=== PATIENT | male | born 1950 | race Caucasian/White ===

== ENCOUNTER 2017-01-24 07:59 | Day surgery (SDC) | payer OTHER ==
[2017-01-24] MEDS ORDERED: D5 LR 1000 ML 1,000 ML IV ONE (08:17)
[2017-01-24] MEDS ORDERED: DIPRIVAN VIAL 20 ML ONE (10:04)
[2017-01-24] MEDS ORDERED: DIPRIVAN VIAL 10 ML ONE (10:22)
[2017-01-24 10:56] VITALS: BP 132/64
== END 2017-01-24 10:58 | disposition home or self-care (01) ==
LOC: SURG1 07:59
PROVIDERS: ATTEND Internal Medicine Gastroenterology
PROC: 0DBK8ZX Excision of Ascending Colon, Via Natural or Artificial Opening Endoscopic, Diagnostic (ICD-10-PCS; principal; 2017-01-24 10:15)
PROC: 0DBM8ZX Excision of Descending Colon, Via Natural or Artificial Opening Endoscopic, Diagnostic (ICD-10-PCS; principal; 2017-01-24 10:15)
PROC: 0DJD8ZZ Inspection of Lower Intestinal Tract, Via Natural or Artificial Opening Endoscopic (ICD-10-PCS; principal; 2017-01-24 10:15)
PROC: 0DBP8ZX Excision of Rectum, Via Natural or Artificial Opening Endoscopic, Diagnostic (ICD-10-PCS; principal; 2017-01-24 10:15)
PROC: 0DBN8ZX Excision of Sigmoid Colon, Via Natural or Artificial Opening Endoscopic, Diagnostic (ICD-10-PCS; principal; 2017-01-24 10:15)
PROC: 0DBL8ZX Excision of Transverse Colon, Via Natural or Artificial Opening Endoscopic, Diagnostic (ICD-10-PCS; principal; 2017-01-24 10:15)
PROC: 0DBE8ZX Excision of Large Intestine, Via Natural or Artificial Opening Endoscopic, Diagnostic (ICD-10-PCS; principal; 2017-01-24 10:15)
DX: Z12.11 Encounter for screening for malignant neoplasm of colon (principal); K63.5 Polyp of colon; K57.30 Diverticulosis of large intestine without perforation or abscess without bleeding; K64.8 Other hemorrhoids
CPT/HCPCS: A4217; J3490; J7120

== ENCOUNTER 2017-04-04 08:52 | Day surgery (SDC) | payer OTHER ==
[2017-04-04] MEDS ORDERED: D5 LR 1000 ML 1,000 ML IV ONE (09:16)
[2017-04-04] MEDS ORDERED: DIPRIVAN VIAL 20 ML ONE (10:35)
[2017-04-04 11:10] VITALS: BP 118/70
== END 2017-04-04 11:12 | disposition home or self-care (01) ==
LOC: SURG1 08:52
PROVIDERS: ATTEND Internal Medicine Gastroenterology
PROC: 0DB88ZX Excision of Small Intestine, Via Natural or Artificial Opening Endoscopic, Diagnostic (ICD-10-PCS; principal; 2017-04-04 10:45)
PROC: 0DB68ZX Excision of Stomach, Via Natural or Artificial Opening Endoscopic, Diagnostic (ICD-10-PCS; principal; 2017-04-04 10:45)
PROC: 0DJ08ZZ Inspection of Upper Intestinal Tract, Via Natural or Artificial Opening Endoscopic (ICD-10-PCS; principal; 2017-04-04 10:45)
DX: R10.13 Epigastric pain (principal); K21.9 Gastro-esophageal reflux disease without esophagitis; K25.9 Gastric ulcer, unspecified as acute or chronic, without hemorrhage or perforation; K20.8 Other esophagitis
CPT/HCPCS: A4217; J3490; J7120

== ENCOUNTER 2017-08-15 07:20 | Day surgery (SDC) | payer OTHER ==
[2017-08-15] MEDS: D5 LR 1000 ML 1,000 ML IV ONE ×2 (07:39→07:52)
[2017-08-15] MEDS ORDERED: NS 1000 ML 1,000 ML ONE (07:46)
[2017-08-15] MEDS ORDERED: DIPRIVAN VIAL 20 ML ONE (09:16)
[2017-08-15 10:04] VITALS: BP 115/70
== END 2017-08-15 10:00 | disposition home or self-care (01) ==
LOC: SURG1 07:20
PROVIDERS: ATTEND Internal Medicine Gastroenterology
PROC: 0DJ08ZZ Inspection of Upper Intestinal Tract, Via Natural or Artificial Opening Endoscopic (ICD-10-PCS; principal; 2017-08-15 09:30)
PROC: 0DB68ZX Excision of Stomach, Via Natural or Artificial Opening Endoscopic, Diagnostic (ICD-10-PCS; principal; 2017-08-15 09:30)
DX: K25.9 Gastric ulcer, unspecified as acute or chronic, without hemorrhage or perforation (principal); R10.13 Epigastric pain; K21.9 Gastro-esophageal reflux disease without esophagitis; K31.89 Other diseases of stomach and duodenum; K29.60 Other gastritis without bleeding; K20.8 Other esophagitis; K44.9 Diaphragmatic hernia without obstruction or gangrene
CPT/HCPCS: A4217; J3490; J7120

== ENCOUNTER 2018-11-29 09:30 | Observation (INO) ==
[2018-11-29] MEDS ORDERED: NS 1000 ML 1,000 ML IV ONE ×2 (10:11→12:48)
--- NOTE | 2018-11-29 10:15 | DR.UPM ---
HPI Time Seen Time Seen by Provider: 11/29/18 10:05 Complaint Chief Complaint Doctors Comments: Patient presents with complaint of upper back pain since yesterday when he fell onto his back. Admits to prostate hypertrophy on diurectics . Chief Complaint:: PT STATES HE FELL YESTERDAY AND HIT VERY HARD ON HIS BACK (MIDDLE AREA) AT 1PM YESTERDAY. PT STATES HE HAS NOT URINATED SINCE THEN. Timing Onset of Chief Complaint: 11/28/18 PMH PMH Past Medical History: Yes Past Medical History: Diabetes and Hypertension Past Medical History Comment: ENLARGED PROSTATE KIDNEY STONES Past Surgical History: Yes Surgical History: Lithotripsy Past Surgical History Comment: HERNIA REPAIR SURGERY EYE REPAIR BOTH EYES DEVIATED SEPTUM Family History History of Family Medical Conditions: Yes Family Medical History: [place] Social History Does patient currently use any type of tobacco product: No Have you used tobacco products in the last 12 months: No Type of Tobacco Use: None Does any household member use tobacco: No Alcohol Use: None Do you use any recreational Drugs:: No Lives With: Spouse and Family Lives Where: Home infectious screening In the last 2 months have you had wt loss of >10#?: NO Have you had fever, night sweats or hemotysis?: No Have you traveled outside the country in the last 6 months?: No Isolation: Standard PE Vital Signs Vitals: Temperature 97.6 F Pulse Rate [Left Brachial] 56 Pulse Rate [Right Brachial] 53 Pulse Rate 61 Respiratory Rate 18 Blood Pressure [Left Arm] 148/74 Blood Pressure [Right Arm] 118/64 Blood Pressure 88/58 O2 Sat by Pulse Oximetry 96 General Limitations: No Limitations General Appearance: Alert, In No Apparent Distress and Anxious Head Head Exam: Normal Inspection, Atraumatic and Normocephalic Eyes Eye exam: Normal Appearance, PERRL and EOMI ENT ENT Exam: Normal Exam, Normal Oropharynx, Normal External Ear Exam, Mucous Membranes Moist, Mucous Membranes Dry and TM's Normal Bilaterally Neck Neck Exam: Normal Inspection and Full ROM Chest Chest Inspection: Normal Inspection and Symmetric Chest Wall Rise Respiratory Respiratory Exam: Normal Lung Sounds Bilat and Accessory Muscle Use Respiratory Exam: Bilateral: Clear to Auscultation Cardiovascular Cardiovascular Exam: Regular Rate and Normal Rhythm Abdominal Exam Abdominal Exam: Normal Inspection, Normal Bowel Sounds and Soft Rectal Rectal Exam: Deferred Genitourinary Exam: Male: Deferred COURSE Treatment Treatment: NS 2L. ROR Labs Reviewed Laboratory Results Reviewed?: Yes Result Diagrams: 12/01/18 04:28 12/01/18 04:28 Laboratory: WBC 6.9 X10^3/uL (3.6-10.0) 12/01/18 04:28 RBC 3.93 X10^6/uL (4.7-6.0) L 12/01/18 04:28 Hgb 12.2 g/dL (13.5-18.0) L 12/01/18 04:28 Hct 35.7 % (42.0-54.0) L 12/01/18 04:28 MCV 90.8 fL (80.0-100.0) 12/01/18 04:28 MCH 31.1 pg (27.0-34.0) 12/01/18 04:28 MCHC 34.2 g/dL (33.0-35.0) 12/01/18 04:28 RDW 15.0 % (11.6-16.5) 12/01/18 04:28 Plt Count 159 X10^3/uL (150.0-450.0) 12/01/18 04:28 MPV 8.3 fL (7.4-11.0) 12/01/18 04:28 Neut % (Auto) 53.2 % (42.0-75.0) 12/01/18 04:28 Lymph % (Auto) 34.5 % (21.0-51.0) 12/01/18 04:28 [place] % (Auto) 8.3 % (0.0-13.0) 12/01/18 04:28 Eos % (Auto) 3.6 % (0.9-2.9) H 12/01/18 04:28 Baso % (Auto) 0.4 % (0.2-1.0) 12/01/18 04:28 Neut # (Auto) 3.7 x10^3/uL (2.2-4.8) 12/01/18 04:28 Lymph # (Auto) 2.4 X10^3/uL (1.3-2.9) 12/01/18 04:28 [place] # (Auto) 0.6 x10^3/uL (0.3-0.8) 12/01/18 04:28 Eos # (Auto) 0.2 x10^3/uL (0.0-0.2) 12/01/18 04:28 Baso # (Auto) 0.0 X10^3/uL (0.0-0.1) 12/01/18 04:28 Absolute Nucleated RBC 0.0 /100WBC 12/01/18 04:28 INR Target Range - 11/29/18 10:28 INR 0.94 (0.8-1.3) 11/29/18 10:28 Sodium 143 mmol/L (136-145) 12/01/18 04:28 Corrected Sodium TNP 12/01/18 04:28 Potassium 3.7 mmol/L (3.5-5.1) 12/01/18 04:28 Chloride 107 mmol/L (98-107) 12/01/18 04:28 Carbon Dioxide 26.6 mmol/L (21-32) 12/01/18 04:28 BUN 18 mg/dL (7-18) 12/01/18 04:28 Creatinine 1.15 mg/dL (0.70-1.30) 12/01/18 04:28 Est GFR (MDRD) Af Amer > 60 (>60) 12/01/18 04:28 Est GFR (MDRD) Non-Af > 60 (>60) 12/01/18 04:28 Glucose 103 mg/dL (65-99) H 12/01/18 04:28 Calcium 8.8 mg/dL (8.5-10.1) 12/01/18 04:28 Corrected Calcium 9.8 mg/dL (8.5-10.1) 12/01/18 04:28 Magnesium 1.7 mg/dL (1.7-2.9) 12/01/18 04:28 Total Bilirubin 0.30 mg/dL (0.2-1.0) 12/01/18 04:28 AST 16 Units/L (15-37) 12/01/18 04:28 ALT 27 Units/L (12-78) 12/01/18 04:28 Alkaline Phosphatase 63 Units/L (46-116) 12/01/18 04:28 Creatine Kinase 69 Units/L (39-308) 11/29/18 10:28 CK-MB (CK-2) < 1.0 ng/mL (0-4.0) 11/29/18 10:28 CK/CKMB % Calc 1.5 % (<4) 11/29/18 10:28 Troponin I < 0.02 ng/mL (0-1.5) 11/29/18 10:28 Total Protein 6.1 g/dL (6.4-8.2) L 12/01/18 04:28 Albumin 2.8 g/dL (3.4-5.0) L 12/01/18 04:28 Globulin 3.3 g/dL (2.5-4.5) 12/01/18 04:28 Albumin/Globulin Ratio 0.8 Ratio (1.1-2.1) L 12/01/18 04:28 Specimen Type Catherized urine 11/29/18 12:11 Urine Color [place] (YELLOW) 11/29/18 12:11 Urine Appearance Clear (CLEAR) 11/29/18 12:11 Urine pH 5.0 (5.0 - 8.0) 11/29/18 12:11 Ur Specific [place] 1.020 (1.000-1.030) 11/29/18 12:11 Urine Protein 2+ (NEGATIVE) 11/29/18 12:11 Urine Glucose (UA) 2+ (NEGATIVE) 11/29/18 12:11 Urine Ketones 1+ (NEGATIVE) 11/29/18 12:11 Urine Occult Blood Negative (NEGATIVE) 11/29/18 12:11 Urine Nitrite Negative (NEGATIVE) 11/29/18 12:11 Urine Bilirubin 1+ (NEGATIVE) 11/29/18 12:11 Urine Urobilinogen 1+ (NORMAL) 11/29/18 12:11 Ur Leukocyte Esterase 1+ (NEGATIVE) 11/29/18 12:11 Urine RBC None seen /HPF (NONE SEEN) 11/29/18 12:11 Urine WBC 0-2 /HPF (NONE SEEN) 11/29/18 12:11 Ur Squamous Epith Cells Rare /HPF (NEGATIVE) 11/29/18 12:11 Amorphous Sediment Trace /HPF (NEGATIVE) 11/29/18 12:11 Urine Bacteria Negative /HPF (NEGATIVE) 11/29/18 12:11 Hyaline Casts Rare /LPF (NEGATIVE) 11/29/18 12:11 Ur Culture Indicated? No/not indicated 11/29/18 12:11 Other Results Comments: thoracic spine, 4 views: No acute fracture or bone destruction or subluxation seen, Disc narrowing and marginal osteophyte formation noted at multiple levels. Anterior longitudinal ligament ossification. Impression: Degenerative thoracic spondylosis. XRAY XRAY Interpreted by: Radiologist Procedures Procedure Comments Procedures: Penile catherization -obtained 400cc fluid Diagnosis Discharge Problem: Dehydration, Prostatic hypertrophy, Prerenal azotemia, DISH (diffuse idiopathic skeletal hyperostosis) Instructions Instructions: Dehydration, Adult, [id number]
[2018-11-29 10:39] LABS: BASOPHILS % (AUTO) 0.4 % (0.2-1.0); EOSINOPHILS # (AUTO) 0.4 x10^3/uL (0.0-0.2); HEMATOCRIT 43.5 % (42.0-54.0); HEMOGLOBIN 14.7 g/dL (13.5-18.0); LYMPHOCYTES # (AUTO) 2.4 X10^3/uL (1.3-2.9); LYMPHOCYTES % (AUTO) 20.2 % (21.0-51.0); MEAN CORPUSCULAR HEMOGLOBIN 31.1 pg (27.0-34.0); MEAN CORPUSCULAR HGB CONC 33.9 g/dL (33.0-35.0); MEAN CORPUSCULAR VOLUME 91.9 fL (80.0-100.0); MEAN PLATELET VOLUME 8.4 fL (7.4-11.0); MONOCYTES # (AUTO) 0.9 x10^3/uL (0.3-0.8); MONOCYTES % (AUTO) 7.9 % (0.0-13.0); NEUTROPHILS # (AUTO) 8.1 x10^3/uL (2.2-4.8); NEUTROPHILS % (AUTO) 68.5 % (42.0-75.0); PLATELET COUNT 209 X10^3/uL (150.0-450.0); RED BLOOD COUNT 4.73 X10^6/uL (4.7-6.0); RED CELL DISTRIBUTION WIDTH 15.7 % (11.6-16.5); WHITE BLOOD COUNT 11.9 X10^3/uL (3.6-10.0)
[2018-11-29 10:55] LABS: BLOOD UREA NITROGEN 28 mg/dL (7-18); CALCIUM 9.9 mg/dL (8.5-10.1); CARBON DIOXIDE 27.7 mmol/L (21-32); CHLORIDE 100 mmol/L (98-107); COR NA(FOR HYPERGLY) 140 mmol/L (136-145); CREATININE 2.14 mg/dL (0.70-1.30); SODIUM 140 mmol/L (136-145); TROPONIN I < 0.02 ng/mL (0-1.5); eGFR NON BLACK RACES 33 (>60)
[2018-11-29 11:00] LABS: ALANINE AMINOTRANSFERASE 33 Units/L (12-78); ALBUMIN 4.3 g/dL (3.4-5.0); ALKALINE PHOSPHATASE 88 Units/L (46-116); ASPARTATE AMINO TRANSFERASE 15 Units/L (15-37); CREATINE KINASE 69 Units/L (39-308); CREATINE KINASE MB < 1.0 ng/mL (0-4.0); TOTAL PROTEIN 8.4 g/dL (6.4-8.2)
--- NOTE | 2018-11-29 11:00 | RAD ---
Examination: Thoracic spine, four views History: Fell Findings: No acute fracture or bone destruction or subluxation seen. Disc narrowing and marginal osteophyte formation noted at multiple levels. Anterior longitudinal ligament ossification. Impression: No acute injury demonstrated. Degenerative thoracic spondylosis. Described findings suggestive of DISH. Reported By:
[2018-11-29 11:01] LABS: CKMB % 1.5 % (<4)
[2018-11-29 12:19] LABS: BILIRUBIN,URINE 1+ (NEGATIVE); BLOOD/HEMOGLOBIN,URINE NEGATIVE (NEGATIVE); GLUCOSE, URINE 2+ (NEGATIVE); KETONES,URINE 1+ (NEGATIVE); LEUKOCYTE ESTERASE ,URINE 1+ (NEGATIVE); NITRITES,URINE NEGATIVE (NEGATIVE); PROTEIN,URINE 2+ (NEGATIVE); UROBILINOGEN,URINE 1+ (NORMAL)
[2018-11-29 12:28] LABS: APPEARANCE,URINE CLEAR (CLEAR); COLOR,URINE AMBER (YELLOW)
[2018-11-29] MEDS ORDERED: ZOFRAN INJ 4 MG VIAL ONE (12:29)
[2018-11-29 12:45] LABS: RBC,URINE NONE SEEN /HPF (NONE SEEN); SQUAMOUS EPITHELIAL CELL,UR RARE /HPF (NEGATIVE)
[2018-11-29 12:46] LABS: AMORPHOUS SEDIMENT,UR TRACE /HPF (NEGATIVE); BACTERIA,URINE NEGATIVE /HPF (NEGATIVE); HYALINE CASTS, URINE RARE /LPF (NEGATIVE)
[2018-11-29] MEDS ORDERED: NS 1000 ML 1,000 ML ONE (12:48)
[2018-11-29] MEDS ORDERED: ROBITUSSIN DM PO PRN (15:31)
[2018-11-29] MEDS ORDERED: PHENERGAN INJ 25 MG IM PRN (15:31)
[2018-11-29] MEDS ORDERED: TYLENOL 325 MG TAB PO PRN (15:31)
[2018-11-29] MEDS ORDERED: MAALOX or MYLANTA PO PRN (15:31)
[2018-11-29] MEDS ORDERED: MILK OF MAGNESIA PO PRN (15:31)
[2018-11-29] MEDS ORDERED: ZOFRAN TAB 4 MG SL PRN (15:31)
[2018-11-29] MEDS ORDERED: NEURONTIN CAP 300 MG PO SCH (16:28)
[2018-11-29] MEDS ORDERED: AMARYL TAB 4 MG PO PRN (16:28)
[2018-11-29] MEDS ORDERED: PROTONIX TAB 40 MG PO SCH (16:28)
[2018-11-29] MEDS: NS 1000 ML 1,000 ML IV SCH (17:28)
[2018-11-29 17:30] VITALS: BMI 30.5
[2018-11-29] MEDS ORDERED: FLUVIRIN IM ONE ×2 (17:30→20:40)
[2018-11-29] MEDS ORDERED: PREVNAR 13 IM ONE ×2 (17:30→20:40)
[2018-11-29] MEDS ORDERED: TOPROL XL PO ONE (20:39)
[2018-11-29] MEDS: RESTORIL CAP 15 MG PO PRN (21:08)
[2018-11-29] MEDS: TOPROL XL PO SCH (21:09)
[2018-11-29] MEDS: SNACK - Diabetic Appropriate PO SCH (21:16)
[2018-11-29] MEDS ORDERED: STERILE WATER IRRIGATION IR ONE (23:07)
[2018-11-30] MEDS: NS 1000 ML 1,000 ML IV SCH ×2 (05:04→18:16)
[2018-11-30 05:14] LABS: BASOPHILS % (AUTO) 0.5 % (0.2-1.0); EOSINOPHILS # (AUTO) 0.3 x10^3/uL (0.0-0.2); HEMATOCRIT 35.7 % (42.0-54.0); LYMPHOCYTES # (AUTO) 2.3 X10^3/uL (1.3-2.9); LYMPHOCYTES % (AUTO) 31.4 % (21.0-51.0); MEAN CORPUSCULAR HEMOGLOBIN 31.2 pg (27.0-34.0); MEAN CORPUSCULAR HGB CONC 33.9 g/dL (33.0-35.0); MEAN CORPUSCULAR VOLUME 92.1 fL (80.0-100.0); MEAN PLATELET VOLUME 8.4 fL (7.4-11.0); MONOCYTES # (AUTO) 0.7 x10^3/uL (0.3-0.8); MONOCYTES % (AUTO) 9.7 % (0.0-13.0); NEUTROPHILS # (AUTO) 3.9 x10^3/uL (2.2-4.8); NEUTROPHILS % (AUTO) 54.4 % (42.0-75.0); PLATELET COUNT 159 X10^3/uL (150.0-450.0); RED BLOOD COUNT 3.88 X10^6/uL (4.7-6.0); WHITE BLOOD COUNT 7.3 X10^3/uL (3.6-10.0)
[2018-11-30 05:29] LABS: HEMOGLOBIN 12.1 g/dL (13.5-18.0)
[2018-11-30 05:35] LABS: ALBUMIN 2.8 g/dL (3.4-5.0); CALCIUM 8.6 mg/dL (8.5-10.1); CARBON DIOXIDE 25.3 mmol/L (21-32); COR CA(FOR HYPOALB) 9.6 mg/dL (8.5-10.1); CREATININE 1.53 mg/dL (0.70-1.30); TOTAL PROTEIN 5.9 g/dL (6.4-8.2)
[2018-11-30] MEDS ORDERED: TOPROL XL PO ONE ×2 (08:26→21:09)
[2018-11-30] MEDS: TOPROL XL PO SCH ×2 (09:40→21:14)
[2018-11-30] MEDS: ASPIRIN EC 81 MG PO SCH (09:40)
[2018-11-30] MEDS: CRESTOR TAB 10 MG PO SCH (09:40)
[2018-11-30] MEDS: CELEXA PO SCH (09:40)
[2018-11-30] MEDS: NEURONTIN CAP 300 MG PO SCH (09:41)
[2018-11-30] MEDS: MIRAPEX TAB 0.25 MG PO SCH (09:41)
[2018-11-30] MEDS: PROTONIX TAB 40 MG PO SCH (09:41)
--- NOTE | 2018-11-30 13:42 | DR.H&P ---
H&P - History & Physical for Day of: H&P Date: 11/29/18 - Chief Complaint Chief Complaint: fall, lower back pain, urinary retention, dehydration - History of Present Illness History of Present Illness: 68 WM ER ADMISSION,PT OF DR JIN. PT CO RECENT FALL WITH BACK INJURY AND NEW ONSET URINARY RETENTION. PT WAS HYPOTENSIVE IN ER AND HAD DYE CATH WITH ~1000CC OUTPUT, BP STABLE ADMITTED FOR TREATMENT OF DEHYDRATION WITH ACUTE RENAL INSUFFICIENCY. PT HAS PMH OF DM, HTN, BPH, OA. - Past Medical History Past Medical History: Hypertension, Diabetes Additional Medical History: BPH - Past Surgical History Surgical History: Other - Family History Family Medical History: [place] - Social History Does patient currently use any type of tobacco product: No Have you used tobacco products in the last 12 months: No Type of Tobacco Use: None Does any household member use tobacco: No Alcohol Use: None Drug Use: None - Medications Home Medications: Iodinated Contrast- Oral and IV Dye Allergy (Verified 08/15/17 07:59) Iodine and Iodide Containing Produc Allergy (Verified 08/15/17 07:59) Sulfa (Sulfonamide Antibiotics) [SULFA] Allergy (Verified 08/15/17 07:59) CONTINUE taking the following medications aspirin [Aspir-81] 81 mg PO DAILY 11/29/18 [History] gabapentin 300 mg PO HS 11/29/18 [History] glimepiride 2 mg PO BID PRN 11/29/18 [History] metoprolol succinate 100 mg PO BID 11/29/18 [History] pantoprazole 40 mg PO QDAY 11/29/18 [History] pramipexole 0.25 mg PO DAILY 11/29/18 [History] rosuvastatin 10 mg PO HS 11/29/18 [History] - Review of Systems Constitutional: Weakness Eyes: No Symptoms Reported ENT: No Symptoms Reported Respiratory: No Symptoms Reported Cardiovascular: No Symptoms Reported Gastrointestinal: Constipation Genitourinary: Retention Musculoskeletal: Back Pain, Leg Pain Skin: No Symptoms Reported Neurological: Weakness - Physical Exam Vital Signs: Temperature 98.9 F Pulse Rate [Right Brachial] 64 Pulse Rate 61 Respiratory Rate 18 Blood Pressure [Left Arm] 120/71 Blood Pressure [Right Arm] 118/64 Blood Pressure 88/58 O2 Sat by Pulse Oximetry 95 Oriented: Normal Eyes: Normal Ear: Normal Nose: Normal Throat: Normal Respiratory: RLL Diminished, LLL Diminished Cardiovascular: Normal : Normal Auscultation: Bowel Sounds: Normal Palpation: Normal Tenderness: Normal Skin: Normal Musculoskeletal: Back:Thoracic, Back:Lumbar, Motor Deficit, Instability Mood Description: Calm Affect: Anxious Speech Pattern: Clear, Appropriate - Assessment/Plan (1) Prerenal azotemia Status: Acute Plan: ADMIT, GENTLE IV HYDRATION. STRICT I & OS. BP MONITORING, BS CONTROL. ENCOURAGE ORAL HYDRATION. VERIFY AND RESUME HOME MEDICATIONS. REPEAT AM LABS, PAIN CONTROL (2) Dehydration Status: Acute (3) Prostatic hypertrophy Status: Acute (4) DISH (diffuse idiopathic skeletal hyperostosis) Status: Acute (5) Essential hypertension Status: Chronic (6) Diabetes mellitus Status: Chronic (7) Fall Status: Acute Plan: WITH BACK PAIN - Allergies Allergies/Adverse Reactions: Allergies Allergy/AdvReac Type Severity Reaction Status Date / Time Iodinated Contrast- Oral and Allergy Verified 08/15/17 07:59 IV Dye Iodine and Iodide Containing Allergy Verified 08/15/17 07:59 Produc Sulfa (Sulfonamide Allergy Verified 08/15/17 07:59 Antibiotics) [SULFA]
--- NOTE | 2018-11-30 13:46 | PCM.PROG ---
Progress Note - Progress Note for Day of Date of Exam: 11/30/18 - Subjective Subjective: 68 WM ER ADMISSION LAST NIGHT WITH CO LOWER BACK PAIN FOLLOWING A FALL AND URINARY RETENTION WITH HYPOTENSION. PT CP STABLE THIS AM, DYE CATH IN PLACE. PT ON FLOMAX 0.4, WILL CONTINUE WITH GENTLE IV HYDRATION NS AT 50CC HR. RESUMED HOME PAIN CONTROL, STOOL SOFTENER. WILL OBTAIN CT L SPINE TODAY. - Past Medical Family Social History Past Med/Fam/Surg Hx: No changes since H&P Allergies: Allergies Iodinated Contrast- Oral and IV Dye Allergy (Verified 08/15/17 07:59) Iodine and Iodide Containing Produc Allergy (Verified 08/15/17 07:59) Sulfa (Sulfonamide Antibiotics) [SULFA] Allergy (Verified 08/15/17 07:59) - Review of Systems ROS: No change since H&P - Vital Signs and I&O's Vital Signs: Temperature 98.9 F Pulse Rate [Right Brachial] 64 Pulse Rate 61 Respiratory Rate 18 Blood Pressure [Left Arm] 120/71 Blood Pressure [Right Arm] 118/64 Blood Pressure 88/58 O2 Sat by Pulse Oximetry 95 Intake and Output: Intake & Output 11/28/18 11/29/18 11/30/18 12/01/18 11:59 11:59 11:59 11:59 Intake Total 1360 / 1360 Output Total 3600 / 3600 Balance -2240 / -2240 - Physical Exam Oriented: Normal Eyes: Normal Ear: Normal Nose: Normal Throat: Normal Respiratory: Diminished Cardiovascular: Normal : Normal Auscultation: Bowel Sounds: Normal Tenderness: Normal Skin: Normal Musculoskeletal: Back:Thoracic, Back:Lumbar, Motor Deficit, Instability Mood Description: Calm Affect: Anxious Speech Pattern: Clear, Appropriate - Laboratory and Diagnostics Result Diagrams: 11/30/18 04:30 11/30/18 04:30 Labs: Laboratory WBC 7.3 X10^3/uL (3.6-10.0) 11/30/18 04:30 RBC 3.88 X10^6/uL (4.7-6.0) L 11/30/18 04:30 Hgb 12.1 g/dL (13.5-18.0) L D 11/30/18 04:30 Hct 35.7 % (42.0-54.0) L 11/30/18 04:30 MCV 92.1 fL (80.0-100.0) 11/30/18 04:30 MCH 31.2 pg (27.0-34.0) 11/30/18 04:30 MCHC 33.9 g/dL (33.0-35.0) 11/30/18 04:30 RDW 15.0 % (11.6-16.5) 11/30/18 04:30 Plt Count 159 X10^3/uL (150.0-450.0) 11/30/18 04:30 MPV 8.4 fL (7.4-11.0) 11/30/18 04:30 Neut % (Auto) 54.4 % (42.0-75.0) 11/30/18 04:30 Lymph % (Auto) 31.4 % (21.0-51.0) 11/30/18 04:30 [place] % (Auto) 9.7 % (0.0-13.0) 11/30/18 04:30 Eos % (Auto) 4.0 % (0.9-2.9) H 11/30/18 04:30 Baso % (Auto) 0.5 % (0.2-1.0) 11/30/18 04:30 Neut # (Auto) 3.9 x10^3/uL (2.2-4.8) 11/30/18 04:30 Lymph # (Auto) 2.3 X10^3/uL (1.3-2.9) 11/30/18 04:30 [place] # (Auto) 0.7 x10^3/uL (0.3-0.8) 11/30/18 04:30 Eos # (Auto) 0.3 x10^3/uL (0.0-0.2) H 11/30/18 04:30 Baso # (Auto) 0.0 X10^3/uL (0.0-0.1) 11/30/18 04:30 Absolute Nucleated RBC 0.0 /100WBC 11/30/18 04:30 INR Target Range - 11/29/18 10:28 INR 0.94 (0.8-1.3) 11/29/18 10:28 Sodium 142 mmol/L (136-145) 11/30/18 04:30 Corrected Sodium 143 mmol/L (136-145) 11/30/18 04:30 Potassium 3.6 mmol/L (3.5-5.1) 11/30/18 04:30 Chloride 108 mmol/L (98-107) H 11/30/18 04:30 Carbon Dioxide 25.3 mmol/L (21-32) 11/30/18 04:30 BUN 24 mg/dL (7-18) H 11/30/18 04:30 Creatinine 1.53 mg/dL (0.70-1.30) H 11/30/18 04:30 Est GFR (MDRD) Af Amer 58 (>60) L 11/30/18 04:30 Est GFR (MDRD) Non-Af 48 (>60) L 11/30/18 04:30 Glucose 157 mg/dL (65-99) H 11/30/18 04:30 Calcium 8.6 mg/dL (8.5-10.1) 11/30/18 04:30 Corrected Calcium 9.6 mg/dL (8.5-10.1) 11/30/18 04:30 Total Bilirubin 0.30 mg/dL (0.2-1.0) 11/30/18 04:30 AST 18 Units/L (15-37) 11/30/18 04:30 ALT 28 Units/L (12-78) 11/30/18 04:30 Alkaline Phosphatase 65 Units/L (46-116) 11/30/18 04:30 Creatine Kinase 69 Units/L (39-308) 11/29/18 10:28 CK-MB (CK-2) < 1.0 ng/mL (0-4.0) 11/29/18 10:28 CK/CKMB % Calc 1.5 % (<4) 11/29/18 10:28 Troponin I < 0.02 ng/mL (0-1.5) 11/29/18 10:28 Total Protein 5.9 g/dL (6.4-8.2) L 11/30/18 04:30 Albumin 2.8 g/dL (3.4-5.0) L 11/30/18 04:30 Globulin 3.1 g/dL (2.5-4.5) 11/30/18 04:30 Albumin/Globulin Ratio 0.9 Ratio (1.1-2.1) L 11/30/18 04:30 Specimen Type Catherized urine 11/29/18 12:11 Urine Color [place] (YELLOW) 11/29/18 12:11 Urine Appearance Clear (CLEAR) 11/29/18 12:11 Urine pH 5.0 (5.0 - 8.0) 11/29/18 12:11 Ur Specific [place] 1.020 (1.000-1.030) 11/29/18 12:11 Urine Protein 2+ (NEGATIVE) 11/29/18 12:11 Urine Glucose (UA) 2+ (NEGATIVE) 11/29/18 12:11 Urine Ketones 1+ (NEGATIVE) 11/29/18 12:11 Urine Occult Blood Negative (NEGATIVE) 11/29/18 12:11 Urine Nitrite Negative (NEGATIVE) 11/29/18 12:11 Urine Bilirubin 1+ (NEGATIVE) 11/29/18 12:11 Urine Urobilinogen 1+ (NORMAL) 11/29/18 12:11 Ur Leukocyte Esterase 1+ (NEGATIVE) 11/29/18 12:11 Urine RBC None seen /HPF (NONE SEEN) 11/29/18 12:11 Urine WBC 0-2 /HPF (NONE SEEN) 11/29/18 12:11 Ur Squamous Epith Cells Rare /HPF (NEGATIVE) 11/29/18 12:11 Amorphous Sediment Trace /HPF (NEGATIVE) 11/29/18 12:11 Urine Bacteria Negative /HPF (NEGATIVE) 11/29/18 12:11 Hyaline Casts Rare /LPF (NEGATIVE) 11/29/18 12:11 Ur Culture Indicated? No/not indicated 11/29/18 12:11 - Plan (1) Prerenal azotemia Status: Acute Plan: GENTLE IV HYDRATION. STRICT I & OS. BP MONITORING, BS CONTROL. ENCOURAGE ORAL HYDRATION. VERIFY AND RESUME HOME MEDICATIONS. REPEAT AM LABS, PAIN CONTROL (2) Dehydration Status: Acute (3) Prostatic hypertrophy Status: Acute Plan: FLOMAX (4) DISH (diffuse idiopathic skeletal hyperostosis) Status: Acute (5) Essential hypertension Status: Chronic (6) Diabetes mellitus Status: Chronic (7) Fall Status: Acute Plan: WITH BACK PAIN
--- NOTE | 2018-11-30 15:03 | CT ---
HISTORY: Fall, low back pain Study: CT lumbar spine without contrast Comparison: None Technique: Axial noncontrast images with coronal and sagittal reformats. Dose reduction procedures were used with mA/kv adjusted for body size. Findings: The bones are osteopenic. The vertebral bodies are of average height. No compression fractures are identified. Diffuse anterior spondylosis is present. The pedicles, spinous processes, and posterior elements are intact as are the visualized portions of the sacrum and SI joints. The disc levels are evaluated as follows: L1-2 level: No evidence for compressive disc disease. The neural foramina are patent. Bilateral facet arthropathy is present. L2-3 level: No evidence for compressive disc disease. The neural foramina are patent. Bilateral facet arthropathy is present. L3-4 level: Concentric disc bulging effaces the thecal sac and contributes along with spondylitic change and pedicular shortening to mild lateral recess narrowing bilaterally. Mild bilateral facet arthropathy is present. L4-5 level: Concentric disc bulging effaces the thecal sac and contributes along with pedicular shortening and bilateral facet arthropathy to lateral recess and foraminal narrowing bilaterally. L5-S1 level: No evidence for compressive disc disease. The neural foramina are patent. Bilateral facet arthropathy is present. IMPRESSION: No acute traumatic abnormality Diffuse anterior spondylosis Evaluation of the disc levels in detail given above Reported By:
[2018-11-30] MEDS: NORCO 7.5/325 MG TAB PO PRN ×2 (16:09→21:13)
[2018-11-30] MEDS ORDERED: FLOMAX PO SCH (21:00)
[2018-11-30] MEDS: RESTORIL CAP 15 MG PO PRN (21:13)
[2018-11-30] MEDS: SNACK - Diabetic Appropriate PO SCH (21:17)
[2018-12-01 05:24] LABS: BASOPHILS % (AUTO) 0.4 % (0.2-1.0); EOSINOPHILS # (AUTO) 0.2 x10^3/uL (0.0-0.2); EOSINOPHILS % (AUTO) 3.6 % (0.9-2.9); HEMATOCRIT 35.7 % (42.0-54.0); HEMOGLOBIN 12.2 g/dL (13.5-18.0); LYMPHOCYTES # (AUTO) 2.4 X10^3/uL (1.3-2.9); LYMPHOCYTES % (AUTO) 34.5 % (21.0-51.0); MEAN CORPUSCULAR HEMOGLOBIN 31.1 pg (27.0-34.0); MEAN CORPUSCULAR HGB CONC 34.2 g/dL (33.0-35.0); MEAN CORPUSCULAR VOLUME 90.8 fL (80.0-100.0); MEAN PLATELET VOLUME 8.3 fL (7.4-11.0); MONOCYTES # (AUTO) 0.6 x10^3/uL (0.3-0.8); MONOCYTES % (AUTO) 8.3 % (0.0-13.0); NEUTROPHILS # (AUTO) 3.7 x10^3/uL (2.2-4.8); NEUTROPHILS % (AUTO) 53.2 % (42.0-75.0); PLATELET COUNT 159 X10^3/uL (150.0-450.0); RED BLOOD COUNT 3.93 X10^6/uL (4.7-6.0); WHITE BLOOD COUNT 6.9 X10^3/uL (3.6-10.0)
[2018-12-01 05:37] LABS: ALANINE AMINOTRANSFERASE 27 Units/L (12-78); ALBUMIN 2.8 g/dL (3.4-5.0); ALKALINE PHOSPHATASE 63 Units/L (46-116); ASPARTATE AMINO TRANSFERASE 16 Units/L (15-37); BLOOD UREA NITROGEN 18 mg/dL (7-18); CALCIUM 8.8 mg/dL (8.5-10.1); CARBON DIOXIDE 26.6 mmol/L (21-32); CHLORIDE 107 mmol/L (98-107); COR CA(FOR HYPOALB) 9.8 mg/dL (8.5-10.1); CREATININE 1.15 mg/dL (0.70-1.30); SODIUM 143 mmol/L (136-145); TOTAL PROTEIN 6.1 g/dL (6.4-8.2); eGFR NON BLACK RACES > 60 (>60)
[2018-12-01] MEDS: NS 1000 ML 1,000 ML IV SCH (05:50)
[2018-12-01] MEDS ORDERED: KLOR-CON PO PRN (06:55)
[2018-12-01] MEDS ORDERED: MICRO K EXTEN CAP 10 MEQ PO PRN (06:55)
[2018-12-01] MEDS ORDERED: POTASSIUM CHL 40 MEQ/NS 0.45% 500 ML IV PRN (06:55)
[2018-12-01] MEDS ORDERED: K-RIDER 10 MEQ/NS 100 ML 10 MEQ/100 ML BAG IV PRN (06:55)
[2018-12-01] MEDS ORDERED: POTASSIUM CHLORIDE LIQ 20 MEQ UDC PO PRN (06:55)
[2018-12-01] MEDS ORDERED: K-DUR TAB 20 MEQ PO PRN (06:55)
[2018-12-01] MEDS ORDERED: POTASSIUM CHL 60 MEQ/NS 0.45% 500 ML IV PRN (06:55)
[2018-12-01] MEDS ORDERED: TOPROL XL PO ONE (08:05)
[2018-12-01 08:26] VITALS: BP 148/74
[2018-12-01] MEDS: CELEXA PO SCH (08:27)
[2018-12-01] MEDS: ASPIRIN EC 81 MG PO SCH (08:27)
[2018-12-01] MEDS: MIRAPEX TAB 0.25 MG PO SCH (08:27)
[2018-12-01] MEDS: CRESTOR TAB 10 MG PO SCH (08:28)
[2018-12-01] MEDS: TOPROL XL PO SCH (08:28)
[2018-12-01] MEDS: PROTONIX TAB 40 MG PO SCH (08:28)
[2018-12-01] MEDS: MAGNESIUM SULFATE 1 GRAM/100 mL PREMIX 1 GM/100 ML BAG IV PRN ×2 (08:29→09:46)
[2018-12-01] MEDS: NEURONTIN CAP 300 MG PO SCH (08:36)
== END 2018-12-01 12:25 | disposition home or self-care (01) ==
LOC: MED/SURG 09:34 → ER 09:34 → MED/SURG 16:30
PROVIDERS: ADMIT Internal Medicine; ATTEND Internal Medicine
DX: I10 Essential (primary) hypertension; Z23 Encounter for immunization; R33.9 Retention of urine, unspecified; R94.4 Abnormal results of kidney function studies; R79.89 Other specified abnormal findings of blood chemistry; I95.89 Other hypotension; Z79.899 Other long term (current) drug therapy; X58.XXXA Exposure to other specified factors, initial encounter; M48.14 Ankylosing hyperostosis [Forestier], thoracic region; N40.1 Benign prostatic hyperplasia with lower urinary tract symptoms; N17.9 Acute kidney failure, unspecified; E11.65 Type 2 diabetes mellitus with hyperglycemia; E86.0 Dehydration
CPT/HCPCS: 36415; 51701; 72072; 72131; 80053; 81001; 82550; 82553; 83735; 84484; 85025; 85610; 90686; 93005; 96365; 96367; 99283; 99284; A4217; A4222; 90670; G0378; J2405; J3475; J3490; J7030

== ENCOUNTER 2019-05-08 18:10 | Inpatient (IN) ==
[2019-05-08 18:20] VITALS: BMI 32.1
[2019-05-08 18:41] LABS: BASOPHILS # (AUTO) 0.1 X10^3/uL (0.0-0.1); BASOPHILS % (AUTO) 0.7 % (0.2-1.0); EOSINOPHILS # (AUTO) 0.5 x10^3/uL (0.0-0.2); HEMATOCRIT 38.1 % (42.0-54.0); LYMPHOCYTES # (AUTO) 2.2 X10^3/uL (1.3-2.9); LYMPHOCYTES % (AUTO) 28.3 % (21.0-51.0); MEAN CORPUSCULAR HEMOGLOBIN 30.3 pg (27.0-34.0); MEAN CORPUSCULAR VOLUME 88.9 fL (80.0-100.0); MONOCYTES # (AUTO) 0.5 x10^3/uL (0.3-0.8); MONOCYTES % (AUTO) 6.8 % (0.0-13.0); NEUTROPHILS # (AUTO) 4.6 x10^3/uL (2.2-4.8); NEUTROPHILS % (AUTO) 58.2 % (42.0-75.0); PLATELET COUNT 231 X10^3/uL (150.0-450.0); RED BLOOD COUNT 4.29 X10^6/uL (4.7-6.0); RED CELL DISTRIBUTION WIDTH 14.2 % (11.6-16.5); WHITE BLOOD COUNT 7.9 X10^3/uL (3.6-10.0)
[2019-05-08 18:57] LABS: ALANINE AMINOTRANSFERASE 46 Units/L (12-78); ALBUMIN 3.4 g/dL (3.4-5.0); ALKALINE PHOSPHATASE 82 Units/L (46-116); ASPARTATE AMINO TRANSFERASE 30 Units/L (15-37); BLOOD UREA NITROGEN 24 mg/dL (7-18); CALCIUM 9.5 mg/dL (8.5-10.1); CARBON DIOXIDE 26.1 mmol/L (21-32); CHLORIDE 104 mmol/L (98-107); COR NA(FOR HYPERGLY) 141 mmol/L (136-145); CREATININE 1.72 mg/dL (0.70-1.30); SODIUM 140 mmol/L (136-145); TOTAL PROTEIN 7.2 g/dL (6.4-8.2); eGFR NON BLACK RACES 42 (>60)
--- NOTE | 2019-05-08 19:52 | VAS ---
History: CVA Technique: Multiple static groves scale and Doppler images of the carotid arteries were obtained bilaterally. Comparison:NONE Findings: Right Carotid: Peak Systolic Velocities: Proximal CCA: 97 cm/s Distal CCA: 72 cm/s Proximal ICA: 105 cm/s Mid ICA: 89 cm/s Distal ICA: 66 cm/s ICA/CCA ratio: 1.45 The right vertebral artery was not visualized. Left Carotid: Peak Systolic Velocities: Proximal CCA: 84 cm/s Distal CCA: 62 cm/s Proximal ICA: 61 cm/s Mid ICA: 70 cm/s Distal ICA: 90 cm/s ICA/CCA ratio: 1.45 Flow in the vertebral artery is: Antegrade Impression: 1. No hemodynamically significant stenosis noted within the carotid arteries bilaterally. 2. Right vertebral artery was not visualized. Right vertebral artery occlusion is not excluded. Neck CT angiogram is recommended to exclude vertebral artery occlusion. Reported By:
--- NOTE | 2019-05-08 20:42 | DR.GENAD ---
HPI Time Seen Time Seen by Provider: 05/08/19 18:36 PCP Primary Care Physician: sarah Complaint/Symptoms Chief Complaint:: karthikliog called and wanted pt to be seen in er due to mri report. dr arias notifed and to call dr smith when work up is done. pt stated he fills fine and the only problem he has is his left eye lid wont open. Source History Provided: Patient Mode of Arrival Mode of Arrival: Ambulatory Timing Onset of Chief Complaint: 05/06/19 PMH PMH Past Medical History: Yes Past Medical History: Diabetes and Hypertension Past Surgical History: Yes Surgical History: Abdominal Surgery and Lithotripsy Family History History of Family Medical Conditions: Yes Family Medical History: [place] Social History Does patient currently use any type of tobacco product: No Have you used tobacco products in the last 12 months: No Type of Tobacco Use: None Does any household member use tobacco: No Alcohol Use: None Do you use any recreational Drugs:: No Lives With: Family Lives Where: Home infectious screening In the last 2 months have you had wt loss of >10#?: NO Have you had fever, night sweats or hemotysis?: No Have you traveled outside the country in the last 6 months?: No Isolation: Standard ROS Review of Systems Constitutional: No Symptoms Reported and See HPI Eyes: See HPI ENTM: No Symptoms Reported Respiratoy: No Symptoms Reported Cardiovascular: No Symptoms Reported Genitourinary: No Symptoms Reported Neurological: No Symptoms Reported Musculoskeletal: No Symptoms Reported Integumentary: No Symptoms Reported Endocrine: No Symptoms Reported Psychiatric: No Symptoms Reported All Other Systems: Reviewed and Negative PE Vital Signs Vitals: Temperature 98.2 F Pulse Rate 75 Respiratory Rate 16 Blood Pressure [Left Arm] 148/74 Blood Pressure [Right Arm] 118/64 Blood Pressure 121/77 O2 Sat by Pulse Oximetry 100 General Limitations: Physical Limitation (left eye) General Appearance: Alert, In No Apparent Distress and Anxious Head Head Exam: Normal Inspection, Atraumatic and Normocephalic Eyes Eye exam: Normal Appearance, PERRL (right eye), EOMI (right eye) and Other (left eye w/o vision) ENT ENT Exam: Normal Exam, Normal Oropharynx, Normal External Ear Exam, Mucous Membranes Moist, Mucous Membranes Dry and TM's Normal Bilaterally External Ear Exam: Normal External Inspection TM/Canal Exam: Bilateral: Normal Nose Exam: Normal Nose Exam Mouth Exam: Normal Inspection Neck Neck Exam: Normal Inspection Chest Chest Inspection: Normal Inspection and Symmetric Chest Wall Rise Respiratory Respiratory Exam: Normal Lung Sounds Bilat Respiratory Exam: Bilateral: Clear to Auscultation Cardiovascular Cardiovascular Exam: Regular Rate and Normal Rhythm Abdominal Exam Abdominal Exam: Normal Inspection, Normal Bowel Sounds and Soft Extremities Extremities Exam: Normal Inspection and Full ROM Back Back Exam: Normal Inspection and Full ROM Neurologic Neurological Exam: Alert, Oriented X3 and CN II-XII Intact Psychiatric Psychiatric Exam: Normal Affect, Normal Mood and Depressed Skin Skin Exam: Warm, Dry and Intact COURSE Consultation Called: 20:30 Consultation Comments: Dr. Smith agreed to admit for further treatment ROR Labs Reviewed Laboratory Results Reviewed?: Yes Result Diagrams: 05/08/19 18:25 05/08/19 18:25 Laboratory: WBC 7.9 X10^3/uL (3.6-10.0) 05/08/19 18:25 RBC 4.29 X10^6/uL (4.7-6.0) L 05/08/19 18:25 Hgb 13.0 g/dL (13.5-18.0) L 05/08/19 18:25 Hct 38.1 % (42.0-54.0) L 05/08/19 18:25 MCV 88.9 fL (80.0-100.0) 05/08/19 18:25 MCH 30.3 pg (27.0-34.0) 05/08/19 18:25 MCHC 34.0 g/dL (33.0-35.0) 05/08/19 18:25 RDW 14.2 % (11.6-16.5) 05/08/19 18:25 Plt Count 231 X10^3/uL (150.0-450.0) 05/08/19 18:25 MPV 8.0 fL (7.4-11.0) 05/08/19 18:25 Neut % (Auto) 58.2 % (42.0-75.0) 05/08/19 18:25 Lymph % (Auto) 28.3 % (21.0-51.0) 05/08/19 18:25 [place] % (Auto) 6.8 % (0.0-13.0) 05/08/19 18:25 Eos % (Auto) 6.0 % (0.9-2.9) H 05/08/19 18:25 Baso % (Auto) 0.7 % (0.2-1.0) 05/08/19 18:25 Neut # (Auto) 4.6 x10^3/uL (2.2-4.8) 05/08/19 18:25 Lymph # (Auto) 2.2 X10^3/uL (1.3-2.9) 05/08/19 18:25 [place] # (Auto) 0.5 x10^3/uL (0.3-0.8) 05/08/19 18:25 Eos # (Auto) 0.5 x10^3/uL (0.0-0.2) H 05/08/19 18:25 Baso # (Auto) 0.1 X10^3/uL (0.0-0.1) 05/08/19 18:25 Absolute Nucleated RBC 0.0 /100WBC 05/08/19 18:25 INR Target Range - 05/08/19 18:35 INR 1.06 (0.8-1.3) 05/08/19 18:35 APTT 28.4 SECONDS (22.9-36.5) 05/08/19 18:35 PTT Comment - 05/08/19 18:35 Sodium 140 mmol/L (136-145) 05/08/19 18:25 Corrected Sodium 141 mmol/L (136-145) 05/08/19 18:25 Potassium 3.8 mmol/L (3.5-5.1) 05/08/19 18:25 Chloride 104 mmol/L (98-107) 05/08/19 18:25 Carbon Dioxide 26.1 mmol/L (21-32) 05/08/19 18:25 BUN 24 mg/dL (7-18) H 05/08/19 18:25 Creatinine 1.72 mg/dL (0.70-1.30) H 05/08/19 18:25 Est GFR (MDRD) Af Amer 51 (>60) L 05/08/19 18:25 Est GFR (MDRD) Non-Af 42 (>60) L 05/08/19 18:25 Glucose 145 mg/dL (65-99) H 05/08/19 18:25 Calcium 9.5 mg/dL (8.5-10.1) 05/08/19 18:25 Corrected Calcium TNP 05/08/19 18:25 Total Bilirubin 0.30 mg/dL (0.2-1.0) 05/08/19 18:25 AST 30 Units/L (15-37) 05/08/19 18:25 ALT 46 Units/L (12-78) 05/08/19 18:25 Alkaline Phosphatase 82 Units/L (46-116) 05/08/19 18:25 Total Protein 7.2 g/dL (6.4-8.2) 05/08/19 18:25 Albumin 3.4 g/dL (3.4-5.0) 05/08/19 18:25 Globulin 3.8 g/dL (2.5-4.5) 05/08/19 18:25 Albumin/Globulin Ratio 0.9 Ratio (1.1-2.1) L 05/08/19 18:25 Other Results Comments: Doppler images of carotid arteries: No hemodynamically significant stenosis noted within the carotid arteries bilaterally. Right vertebral artery was not visualized. Right vertebral artery occlusion is not excluded. Neck CT angiogram is recommended to exclude vertebral artery occlusion. XRAY XRAY Interpreted by: Radiologist Opioid Opioid Risk Tool Total: 0 Total Score Risk Category: Low Risk Copyright: Gunner ZUÑIGA predicting aberrant behaviors ADDITIONAL NOTES Additional Notes Additional Notes: Patient admitted to Dr. Bernal service; started on low dose heparin drip
[2019-05-08] MEDS ORDERED: HEPARIN IV ONE (20:54)
[2019-05-08] MEDS ORDERED: HEPARIN SODIUM IN D5W 25,000 UNITS/500 ML BAG IV ONE (20:58)
[2019-05-08] MEDS ORDERED: HEPARIN SODIUM INJ 5000 UNITS ONE (20:58)
[2019-05-08] MEDS: CRESTOR TAB 10 MG PO SCH (23:43)
[2019-05-09 06:39] LABS: BASOPHILS % (AUTO) 0.4 % (0.2-1.0); EOSINOPHILS # (AUTO) 0.4 x10^3/uL (0.0-0.2); EOSINOPHILS % (AUTO) 6.6 % (0.9-2.9); HEMATOCRIT 34.5 % (42.0-54.0); HEMOGLOBIN 11.8 g/dL (13.5-18.0); LYMPHOCYTES # (AUTO) 2.1 X10^3/uL (1.3-2.9); LYMPHOCYTES % (AUTO) 32.3 % (21.0-51.0); MEAN CORPUSCULAR HGB CONC 34.2 g/dL (33.0-35.0); MEAN CORPUSCULAR VOLUME 87.8 fL (80.0-100.0); MEAN PLATELET VOLUME 7.6 fL (7.4-11.0); MONOCYTES # (AUTO) 0.5 x10^3/uL (0.3-0.8); MONOCYTES % (AUTO) 8.1 % (0.0-13.0); NEUTROPHILS # (AUTO) 3.5 x10^3/uL (2.2-4.8); NEUTROPHILS % (AUTO) 52.6 % (42.0-75.0); PLATELET COUNT 219 X10^3/uL (150.0-450.0); RED BLOOD COUNT 3.93 X10^6/uL (4.7-6.0); RED CELL DISTRIBUTION WIDTH 13.9 % (11.6-16.5); WHITE BLOOD COUNT 6.6 X10^3/uL (3.6-10.0)
[2019-05-09 06:50] LABS: CALCIUM 9.2 mg/dL (8.5-10.1); CREATININE 1.54 mg/dL (0.70-1.30); TOTAL PROTEIN 6.4 g/dL (6.4-8.2)
[2019-05-09 06:52] LABS: BILIRUBIN,URINE NEGATIVE (NEGATIVE); BLOOD/HEMOGLOBIN,URINE 5+ (NEGATIVE); GLUCOSE, URINE NEGATIVE (NEGATIVE); KETONES,URINE NEGATIVE (NEGATIVE); LEUKOCYTE ESTERASE ,URINE 1+ (NEGATIVE); NITRITES,URINE NEGATIVE (NEGATIVE); PROTEIN,URINE 2+ (NEGATIVE); UROBILINOGEN,URINE NORMAL (NORMAL)
[2019-05-09 07:03] LABS: APPEARANCE,URINE SLIGHTLY HAZY (CLEAR); COLOR,URINE YELLOW (YELLOW)
[2019-05-09 07:04] LABS: BACTERIA,URINE TRACE /HPF (NEGATIVE); SQUAMOUS EPITHELIAL CELL,UR RARE /HPF (NEGATIVE)
--- NOTE | 2019-05-09 08:16 | RAD ---
History: Abdominal pain. Technique: 3 supine radiographs of the abdomen. Comparison: CT of the abdomen and pelvis dated 06/02/2015. Findings: There is a surgical drain projecting over the right lower quadrant of the abdomen. There is a tube or catheter projecting over the pelvis which may represent a bladder catheter. Clinical correlation is required. The bowel gas pattern is nonspecific and nonobstructive.. The bowel gas pattern is nonspecific and nonobstructive. Visceral shadows are unremarkable.. Small radiopacities project over the left renal shadow measuring 4-5 mm. Impression: 1. Normal bowel gas pattern. 2. Drain/catheters projecting over the right lower quadrant and pelvis as described above. . 3. 4-5 mm radiopacity projects over the left renal shadow may represent a renal calculus. If there is concern for renal colic, further evaluation with renal ultrasound or noncontrast CT of the abdomen and pelvis would be recommended. Reported By:
[2019-05-09] MEDS ORDERED: OLMESARTAN HYDROCHLOROTHIAZIDE PO SCH (09:00)
[2019-05-09] MEDS ORDERED: TOPROL XL ONE ×2 (10:51→20:22)
[2019-05-09] MEDS: HYDROCHLOROTHIAZIDE 25 MG TAB PO SCH (10:57)
[2019-05-09] MEDS: BENICAR TAB 40 MG PO SCH (10:57)
[2019-05-09] MEDS: AMARYL TAB 4 MG PO SCH ×2 (10:57→21:33)
[2019-05-09] MEDS: NEURONTIN CAP 300 MG PO SCH (10:58)
[2019-05-09] MEDS: FLOMAX PO SCH (10:58)
[2019-05-09] MEDS: ELIQUIS PO SCH ×2 (11:03→21:33)
[2019-05-09] MEDS: TOPROL XL PO SCH ×2 (11:04→21:34)
--- NOTE | 2019-05-09 14:10 | CT ---
HISTORY: Abdominal pain.. History of prostate cancer, status post prostatectomy Study: CT abdomen and pelvis without contrast Comparison: NONE Technique: Multiple axial images of the abdomen and pelvis were obtained from the lung bases to the pubic symphysis without the administration of IV contrast. Automated exposure control (AEC) was utilized to adjust the MA and/or kV according to patient size. Findings: Abdomen: Please note that the lack of intravenous contrast limits sensitivity for detection of parenchymal lesions. The liver appears homogeneous without contour deforming masses. The gallbladder is present and nondistended. There is no intrahepatic or extrahepatic bile duct dilatation. The spleen, pancreas, and bilateral adrenal glands appear normal. Both kidneys are homogenous without contour deforming masses. There is mild bilateral hydronephrosis and hydroureter. Both ureters are mildly distended to the level of the bladder. There is a 5 mm nonobstructing calculus lower pole of the left kidney.. The stomach is unremarkable. The small bowel and colon are nondistended. The appendix is of normal caliber without adjacent inflammatory changes. There is a surgical drain within the right flank which courses toward the right lower quadrant and upper pelvis just anterior to the urinary bladder. There is a catheter present within the bladder. There is mild generalized wall thickening of the bladder. There is mild stranding of the fat along the anterior wall of the bladder which exerts mild mass effect on the bladder best seen on sagittal image 38 series 6. This may represent a hematoma and measures 3.5 x 4.0 cm. The abdominal aorta is of normal caliber. There is no free fluid or free intraperitoneal air. Pelvis: The rectum and sigmoid colon appear unremarkable. Expected postsurgical changes are seen in the pelvis consistent with history of prostatectomy. There is no free fluid or organized fluid collection within the pelvis. As previously mentioned, there is a 4.0 x 3.5 cm area of soft tissue density within the fat just anterior to the bladder exerting mass effect on the anterior bladder wall. This may represent a hematoma.. No acute osseous abnormalities are identified. IMPRESSION: 1. Postsurgical changes in the pelvis consistent with history of prostatectomy. There is a 3.5 x 4.0 cm area of fat stranding and soft tissue density anterior to the bladder wall, exerting mass effect upon it, possibly representing a postsurgical hematoma. A follow-up examination is recommended to ensure resolution. 2. Mild bilateral hydronephrosis and hydroureter. Both ureters are mildly distended to the level of the bladder and may be chronic related to bladder obstruction given history of prostate cancer and recent surgery. No obstructing radiopaque ureteral calculi are seen. There is a nonobstructing calculus in the lower pole of the left kidney as described paragraph 3. Other findings as above. Reported By:
[2019-05-09] MEDS: SNACK - Diabetic Appropriate PO SCH (21:32)
[2019-05-09] MEDS: CRESTOR TAB 10 MG PO SCH (21:33)
[2019-05-10 05:21] LABS: BASOPHILS % (AUTO) 0.4 % (0.2-1.0); EOSINOPHILS # (AUTO) 0.4 x10^3/uL (0.0-0.2); EOSINOPHILS % (AUTO) 4.2 % (0.9-2.9); HEMATOCRIT 37.6 % (42.0-54.0); HEMOGLOBIN 12.7 g/dL (13.5-18.0); LYMPHOCYTES # (AUTO) 2.3 X10^3/uL (1.3-2.9); MEAN CORPUSCULAR HEMOGLOBIN 29.9 pg (27.0-34.0); MEAN CORPUSCULAR HGB CONC 33.8 g/dL (33.0-35.0); MEAN CORPUSCULAR VOLUME 88.3 fL (80.0-100.0); MEAN PLATELET VOLUME 8.3 fL (7.4-11.0); MONOCYTES # (AUTO) 0.7 x10^3/uL (0.3-0.8); MONOCYTES % (AUTO) 7.2 % (0.0-13.0); NEUTROPHILS # (AUTO) 5.8 x10^3/uL (2.2-4.8); NEUTROPHILS % (AUTO) 63.2 % (42.0-75.0); PLATELET COUNT 248 X10^3/uL (150.0-450.0); RED BLOOD COUNT 4.25 X10^6/uL (4.7-6.0); RED CELL DISTRIBUTION WIDTH 13.7 % (11.6-16.5); WHITE BLOOD COUNT 9.2 X10^3/uL (3.6-10.0)
[2019-05-10 05:37] LABS: ALANINE AMINOTRANSFERASE 46 Units/L (12-78); ALBUMIN 3.3 g/dL (3.4-5.0); ALKALINE PHOSPHATASE 67 Units/L (46-116); ASPARTATE AMINO TRANSFERASE 29 Units/L (15-37); BLOOD UREA NITROGEN 20 mg/dL (7-18); CALCIUM 9.6 mg/dL (8.5-10.1); CARBON DIOXIDE 25.2 mmol/L (21-32); CHLORIDE 103 mmol/L (98-107); CHOL/HDL RATIO 3.9 (0.0-5.0); CHOLESTEROL 105 mg/dL (0-200); COR CA(FOR HYPOALB) 10.2 mg/dL (8.5-10.1); CREATININE 1.38 mg/dL (0.70-1.30); HDL CHOLESTEROL 27 mg/dL (40-60); SODIUM 139 mmol/L (136-145); TOTAL PROTEIN 6.9 g/dL (6.4-8.2); TRIGLYCERIDES 108 mg/dL (0-150); eGFR NON BLACK RACES 54 (>60)
[2019-05-10] MEDS ORDERED: GLUTOSE 15 GEL ORAL PO PRN (05:47)
[2019-05-10] MEDS ORDERED: GLUTOSE 15 GEL ORAL PO ONE (05:49)
[2019-05-10] MEDS ORDERED: K-RIDER 10 MEQ/NS 100 ML 10 MEQ/100 ML BAG IV PRN (06:10)
[2019-05-10] MEDS ORDERED: KLOR-CON PO PRN (06:10)
[2019-05-10] MEDS ORDERED: POTASSIUM CHL 40 MEQ/NS 0.45% 500 ML IV PRN (06:10)
[2019-05-10] MEDS ORDERED: POTASSIUM CHLORIDE LIQ 20 MEQ UDC PO PRN (06:10)
[2019-05-10] MEDS ORDERED: MICRO K EXTEN CAP 10 MEQ PO PRN (06:10)
[2019-05-10] MEDS ORDERED: MAGNESIUM SULFATE 1 GRAM/100 mL PREMIX 1 GM/100 ML BAG IV PRN (06:10)
[2019-05-10] MEDS ORDERED: K-DUR TAB 20 MEQ PO PRN (06:10)
[2019-05-10] MEDS ORDERED: POTASSIUM CHL 60 MEQ/NS 0.45% 500 ML IV PRN (06:10)
[2019-05-10] MEDS ORDERED: TOPROL XL ONE (08:40)
[2019-05-10] MEDS: HYDROCHLOROTHIAZIDE 25 MG TAB PO SCH (08:50)
[2019-05-10] MEDS: BENICAR TAB 40 MG PO SCH (08:50)
[2019-05-10] MEDS: NEURONTIN CAP 300 MG PO SCH (08:50)
[2019-05-10] MEDS: TOPROL XL PO SCH ×2 (08:51→21:07)
[2019-05-10] MEDS: FLOMAX PO SCH (08:51)
[2019-05-10] MEDS: ELIQUIS PO SCH ×2 (08:51→21:07)
[2019-05-10] MEDS: AMARYL TAB 4 MG PO SCH (08:57)
[2019-05-10] MEDS ORDERED: NS 1000 ML 1,000 ML IV ONE (11:06)
[2019-05-10] MEDS ORDERED: NS 1000 ML 1,000 ML ONE ×2 (11:14→19:36)
[2019-05-10] MEDS: MAG-OX TAB PO SCH (11:54)
--- NOTE | 2019-05-10 15:29 | DR.H&P ---
H&P - History & Physical for Day of: H&P Date: 05/08/19 - Chief Complaint Chief Complaint: ABNORMAL BRAIN MRI, UNABLE TO OPEN LEFT EYE - History of Present Illness History of Present Illness: IS A 69 YEAR OLD PATIENT OF OURS WHO PRESEN [facility]OPEZ TO THE ER DUE TO AN ABNORMAL BRAIN MRI REPORT. PATIENT REPORTS HAVING A PROSTATECTOMY ON 04/30/19. ON 05/03, HE BEGAN WITH LEFT EYE DROOPING, THEN IT EVENTUALLY BECAME COMPLETELY CLOSED AND HE IS UNABLE TO OPEN IT. HE REPORTS A PRIOR HISTORY OF [facility] [place]. HE WAS SENT FOR A BRAIN MRI BY HIS OPTHAMOLOGIST. MRI REVEALED: Acute ischemic insult right splenium corpus callosum without evidence of hemorrhagic transformation consistent with patient's symptoms. Embolic source is likely, consider cardiac echo and carotid Doppler. Severe, chronic microvascular white matter ischemic disease with associated volume loss. Nonspecific mucosal thickening paranasal sinuses, correlate clinically. A BRAIN MRA WAS OBTAINED AND REVEALED: No aneurysm, high-grade stenosis, complete occlusion, dissection or vascular malformation. HE WAS SENT TO THE ER FOR FURTHER EVALUATION. ON ARRIVAL TO THE ER, VITALS WERE 98.2-75-16-100%-121/77. LABS WERE OBTAINED. ABNORMAL LAB VALUES INCLUDE THE FOLLOWING: RBC 4.29, HCT 13.0, HCT 38.1, BUN 24, CREATININE 1.72, GLUCOSE 145. WE OBTAINED A CAROTID ARTERY ULTRASOUND. IT REVEALED: No hemodynamically significant stenosis noted within the carotid arteries bilaterally. Right vertebral artery was not visualized. Right vertebral artery occlusion is not excluded. Neck CT angiogram is recommended to exclude vertebral artery occlusion. PATIENT CURRENTLY HAS A MIGUEL DRAIN TO THE RLQ AND A DYE CATHETER DUE TO RECENT PROSTATE SURGERY. HE REPORTS THAT HE IS SCHEDULED TO SEE HIS UROLOGIST ON SATURDAY. WE ADMITTED PATIENT FOR FURTHER EVALUATION AND TREATMENT OF ACUTE CVA. WE WILL CONSULT WITH PATIENTS UROLOGIST TO DISCUSS ANTICOAGULATION. OTHERWISE, WE PLAN TO FOLLOW UP WITH AM LABS AND CONTINUE TO MONITOR. - Past Medical History Past Medical History: Hypertension, Diabetes Additional Medical History: BPH - Past Surgical History Surgical History: Lithotripsy - Family History Family Medical History: Heart Failure, Hypertension - Social History Does patient currently use any type of tobacco product: No Have you used tobacco products in the last 12 months: No Type of Tobacco Use: None Does any household member use tobacco: No Alcohol Use: None Drug Use: None Prescription drug monitoring program results: PDMP reviewed and no concerns i dentified - Medications Home Medications: Iodinated Contrast- Oral and IV Dye Allergy (Verified 05/08/19 18:12) Iodine and Iodide Containing Produc Allergy (Verified 05/08/19 18:12) Sulfa (Sulfonamide Antibiotics) [SULFA] Allergy (Verified 05/08/19 18:12) CONTINUE taking the following medications cetirizine [Zyrtec] 10 mg PO DAILY 05/08/19 [History] gabapentin [Neurontin] 300 mg PO DAILY 05/08/19 [History] glimepiride 4 mg PO BID 05/08/19 [History] metoprolol succinate 100 mg PO BID 05/08/19 [History] olmesartan-hydrochlorothiazide 1 tab PO DAILY 05/08/19 [History] rosuvastatin 10 mg PO HS 05/08/19 [History] tamsulosin 0.4 mg PO DAILY 05/08/19 [History] - Review of Systems Constitutional: Weakness Eyes: See HPI, Other (UNABLE TO OPEN LEFT EYE ) ENT: No Symptoms Reported Respiratory: No Symptoms Reported Cardiovascular: No Symptoms Reported Gastrointestinal: Abdominal Pain (RECENT PROSTATECTOMY, MIGUEL DRAIN IN PLACE ) Genitourinary: No Symptoms Reported Musculoskeletal: No Symptoms Reported, Shoulder Pain Skin: No Symptoms Reported Neurological: Weakness - Physical Exam Vital Signs: Temperature 99.3 F Pulse Rate [Brachial] 68 Pulse Rate 80 Respiratory Rate 24 Blood Pressure [Left Arm] 121/77 Blood Pressure [Right Arm] 118/64 Blood Pressure 107/55 O2 Sat by Pulse Oximetry 99 Oriented: Normal Eyes: Other (UNABLE TO OPEN LEFT EYE ) Ear: Normal Nose: Normal Throat: Normal Respiratory: Diminished Throughout Cardiovascular: Normal : Normal (DYE CATHETER IN PLACE ) Auscultation: Bowel Sounds: Normal Palpation: Normal Tenderness: Diffuse, Suprapubic, Mild. negative: Rebound, Guarding, Rigidity Skin: Normal Musculoskeletal: Normal Psychiatric: Normal Mood Description: Calm Affect: Normal Speech Pattern: Clear - Assessment/Plan (1) Acute CVA (cerebrovascular accident) Status: Acute Plan: ADMIT, OBTAIN ECHO IN AM, CONSULT WITH UROLOGIST ABOUT ANTICOAGULATION, CONTINUE TO MONITOR (2) Status post prostatectomy Status: Acute Plan: MIGUEL DRAIN IN PLACE, DYE CATHETER TO BEDSIDE DRAINAGE, CONTINUE TO MONITOR - Allergies Allergies/Adverse Reactions: Allergies Allergy/AdvReac Type Severity Reaction Status Date / Time Iodinated Contrast- Oral and Allergy Verified 05/08/19 18:12 IV Dye Iodine and Iodide Containing Allergy Verified 05/08/19 18:12 Produc Sulfa (Sulfonamide Allergy Verified 05/08/19 18:12 Antibiotics) [SULFA]
[2019-05-10] MEDS: ROCEPHIN VIAL 1 GRAM IVP SCH (16:52)
[2019-05-10] MEDS ORDERED: ROCEPHIN VIAL 1 GRAM ONE (16:57)
[2019-05-10] MEDS ORDERED: TYLENOL 325 MG TAB PO ONE (18:22)
[2019-05-10] MEDS: TYLENOL 325 MG TAB PO PRN (18:36)
[2019-05-10] MEDS: NS 1000 ML 1,000 ML IV SCH (19:40)
[2019-05-10] MEDS: SNACK - Diabetic Appropriate PO SCH (20:00)
[2019-05-10] MEDS: CRESTOR TAB 10 MG PO SCH (21:06)
--- NOTE | 2019-05-10 21:27 | PCM.PROG ---
Progress Note - Progress Note for Day of Date of Exam: 05/09/19 - Subjective Subjective: IS BEING TREATED FOR ACUTE CVA. HE IS STATUS POST PROSTATECTOMY. TODAY, HE IS ALERT AND ORIENTED, LYING IN BED ON MORNING ROUNDS. HE REPORTS WEAKNESS AND ABDOMINAL PAIN TODAY. HE CONTINUES TO BE UNABLE TO OPEN HIS LEFT EYE. OTHERWISE, NEUROLOGICAL EXAM IS UNREMARKABLE. ON EXAMINATION, HEART IS REGULAR IN RATE AND RHYTHM. BILATERAL LUNGS ARE NOTED WITH DIMINISHED LUNG SOUNDS THROUGHOUT. ABDOMEN IS ROUND, SOFT, AND NOTED WITH MILD DIFFUSE TENDERNESS. THERE IS A MIGUEL DRAIN NOTED TO THE RLQ. DYE CATHETER NOTED TO BEDSIDE DRAINAGE. HIS VITALS THIS MORNING ARE: 98.3-60-16-98%-137/66. LABS WERE OBTAINED. ABNORMAL LAB VALUES INCLUDE THE FOLLOWING: RBC 3.93, HGB 11.8, HCT 34.5, BUN 24, CREATININE 1.72, GLUCOSE 145. A URINALYSIS WAS OBTAINED THIS MORNING AND REVEALED WBC 5-10, RBC 10-20, OCCULT BLOOD 5+, BACTERIA TRACE. BLOOD AND URINE CULTURES PENDING. STAFF REPORTS THAT PATIENT HAS HAD A LARGE AMOUNT OF DRAINAGE IN HIS MIGUEL DRAIN. THEY REPORT THAT DRAINAGE LOOKS AND SMELLS LIKE URINE. WE OBTAINED A KUB. IT REVEALED: Normal bowel gas pattern. Drain/catheters projecting over the right lower quadrant and pelvis as described above. 4-5 mm radiopacity projects over the left renal shadow may represent a renal calculus. If there is concern for renal colic, further evaluation with renal ultrasound or non-contrast CT of the abdomen and pelvis would be recommended. WE SPOKE WITH HIS NEUROLOGIST, WHO FELT THAT ANTICOAGULATION WOULD BE APPROPRIATE AT THIS POINT. TODAY, WE WILL START ELIQUIS 2.5MG PO HS. WE WILL OBTAIN AN ABDOMEN/PELVIS CT WITHOUT CONTRAST. OTHERWISE, WE WILL FOLLOW UP WITH AM LABS AND CONTINUE TO MONITOR. - Past Medical Family Social History Past Med/Fam/Surg Hx: No changes since H&P Allergies: Allergies Iodinated Contrast- Oral and IV Dye Allergy (Verified 05/08/19 18:12) Iodine and Iodide Containing Produc Allergy (Verified 05/08/19 18:12) Sulfa (Sulfonamide Antibiotics) [SULFA] Allergy (Verified 05/08/19 18:12) - Review of Systems ROS: No change since H&P - Vital Signs and I&O's Vital Signs: Temperature 101.4 F Pulse Rate [Brachial] 68 Pulse Rate 104 Respiratory Rate 21 Blood Pressure [Left Arm] 121/77 Blood Pressure [Right Arm] 118/64 Blood Pressure 111/56 O2 Sat by Pulse Oximetry 97 Intake and Output: Intake & Output 05/08/19 05/09/19 05/10/19 05/11/19 11:59 11:59 11:59 11:59 Intake Total 240 / 240 1230 / 1230 1768 / 1768 Output Total 1110 / 1110 2330 / 2330 1550 / 1550 Balance -870 / -870 -1100 / -1100 218 / 218 - Physical Exam Oriented: Normal Eyes: Other (UNABLE TO OPEN LEFT EYE ) Ear: Normal Nose: Normal Throat: Normal Cardiovascular: Normal : Normal (YDE CATHETER IN PLACE ) Auscultation: Bowel Sounds: Normal Tenderness: Diffuse, Suprapubic, Mild. negative: Rebound, Guarding, Rigidity Skin: Normal Musculoskeletal: Normal Psychiatric: Normal Mood Description: Calm Affect: Normal Speech Pattern: Clear, Appropriate - Laboratory and Diagnostics Result Diagrams: 05/10/19 04:07 05/10/19 14:04 Labs: 05/09/19 05:50 Urine,Catheterized Urine Culture - Preliminary Laboratory WBC 9.2 X10^3/uL (3.6-10.0) 05/10/19 04:07 RBC 4.25 X10^6/uL (4.7-6.0) L 05/10/19 04:07 Hgb 12.7 g/dL (13.5-18.0) L 05/10/19 04:07 Hct 37.6 % (42.0-54.0) L 05/10/19 04:07 MCV 88.3 fL (80.0-100.0) 05/10/19 04:07 MCH 29.9 pg (27.0-34.0) 05/10/19 04:07 MCHC 33.8 g/dL (33.0-35.0) 05/10/19 04:07 RDW 13.7 % (11.6-16.5) 05/10/19 04:07 Plt Count 248 X10^3/uL (150.0-450.0) 05/10/19 04:07 MPV 8.3 fL (7.4-11.0) 05/10/19 04:07 Neut % (Auto) 63.2 % (42.0-75.0) 05/10/19 04:07 Lymph % (Auto) 25.0 % (21.0-51.0) 05/10/19 04:07 [place] % (Auto) 7.2 % (0.0-13.0) 05/10/19 04:07 Eos % (Auto) 4.2 % (0.9-2.9) H 05/10/19 04:07 Baso % (Auto) 0.4 % (0.2-1.0) 05/10/19 04:07 Neut # (Auto) 5.8 x10^3/uL (2.2-4.8) H 05/10/19 04:07 Lymph # (Auto) 2.3 X10^3/uL (1.3-2.9) 05/10/19 04:07 [place] # (Auto) 0.7 x10^3/uL (0.3-0.8) 05/10/19 04:07 Eos # (Auto) 0.4 x10^3/uL (0.0-0.2) H 05/10/19 04:07 Baso # (Auto) 0.0 X10^3/uL (0.0-0.1) 05/10/19 04:07 Absolute Nucleated RBC 0.1 /100WBC 05/10/19 04:07 INR Target Range - 05/09/19 06:00 INR 1.05 (0.8-1.3) 05/09/19 06:00 APTT 28.0 SECONDS (22.9-36.5) 05/09/19 06:00 PTT Comment - 05/09/19 06:00 Sodium 139 mmol/L (136-145) 05/10/19 04:07 Corrected Sodium TNP 05/10/19 04:07 Potassium 3.8 mmol/L (3.5-5.1) 05/10/19 14:04 Chloride 103 mmol/L (98-107) 05/10/19 04:07 Carbon Dioxide 25.2 mmol/L (21-32) 05/10/19 04:07 BUN 20 mg/dL (7-18) H 05/10/19 04:07 Creatinine 1.38 mg/dL (0.70-1.30) H 05/10/19 04:07 Est GFR (MDRD) Af Amer > 60 (>60) 05/10/19 04:07 Est GFR (MDRD) Non-Af 54 (>60) L 05/10/19 04:07 Glucose 60 mg/dL (65-99) L 05/10/19 04:07 POC Glucose (mg/dL) 154 mg/dL (65-99) H 05/10/19 20:22 Lactic Acid 2.1 mmol/L (0.4-2.0) H 05/10/19 17:34 Calcium 9.6 mg/dL (8.5-10.1) 05/10/19 04:07 Corrected Calcium 10.2 mg/dL (8.5-10.1) H 05/10/19 04:07 Magnesium 1.6 mg/dL (1.7-2.9) L 05/10/19 04:07 Total Bilirubin 0.30 mg/dL (0.2-1.0) 05/10/19 04:07 AST 29 Units/L (15-37) 05/10/19 04:07 ALT 46 Units/L (12-78) 05/10/19 04:07 Alkaline Phosphatase 67 Units/L (46-116) 05/10/19 04:07 Total Protein 6.9 g/dL (6.4-8.2) 05/10/19 04:07 Albumin 3.3 g/dL (3.4-5.0) L 05/10/19 04:07 Globulin 3.6 g/dL (2.5-4.5) 05/10/19 04:07 Albumin/Globulin Ratio 0.9 Ratio (1.1-2.1) L 05/10/19 04:07 Triglycerides 108 mg/dL (0-150) 05/10/19 04:07 Cholesterol 105 mg/dL (0-200) 05/10/19 04:07 LDL Cholesterol, Calc 56 mg/dL (0-100) 05/10/19 04:07 HDL Cholesterol 27 mg/dL (40-60) L 05/10/19 04:07 Cholesterol/HDL Ratio 3.9 (0.0-5.0) 05/10/19 04:07 Specimen Type Catherized urine 05/09/19 05:50 Urine Color Yellow (YELLOW) 05/09/19 05:50 Urine Appearance Slightly hazy (CLEAR) 05/09/19 05:50 Urine pH 5.0 (5.0 - 8.0) 05/09/19 05:50 Ur Specific [place] 1.020 (1.000-1.030) 05/09/19 05:50 Urine Protein 2+ (NEGATIVE) 05/09/19 05:50 Urine Glucose (UA) Negative (NEGATIVE) 05/09/19 05:50 Urine Ketones Negative (NEGATIVE) 05/09/19 05:50 Urine Occult Blood 5+ (NEGATIVE) 05/09/19 05:50 Urine Nitrite Negative (NEGATIVE) 05/09/19 05:50 Urine Bilirubin Negative (NEGATIVE) 05/09/19 05:50 Urine Urobilinogen Normal (NORMAL) 05/09/19 05:50 Ur Leukocyte Esterase 1+ (NEGATIVE) 05/09/19 05:50 Urine RBC 10-20 /HPF (NONE SEEN) 05/09/19 05:50 Urine WBC 5-10 /HPF (NONE SEEN) 05/09/19 05:50 Ur Squamous Epith Cells Rare /HPF (NEGATIVE) 05/09/19 05:50 Urine Bacteria Trace /HPF (NEGATIVE) 05/09/19 05:50 Ur Culture Indicated? Yes/culture set up 05/09/19 05:50 - Plan (1) Acute CVA (cerebrovascular accident) Status: Acute Plan: ELIQUIS 2.5MG PO BID, CONTINUE TO MONITOR (2) Status post prostatectomy Status: Acute Plan: OBTAIN ABDOMEN/PELVIS CT DUE TO ABDOMINAL PAIN, MIGUEL DRAIN IN PLACE, DYE CATHETER TO BEDSIDE DRAINAGE, CONTINUE TO MONITOR
[2019-05-11 04:23] LABS: LACTIC ACID 1.5 mmol/L (0.4-2.0)
[2019-05-11 04:28] LABS: BASOPHILS # (AUTO) 0.1 X10^3/uL (0.0-0.1); BASOPHILS % (AUTO) 0.5 % (0.2-1.0); EOSINOPHILS # (AUTO) 0.4 x10^3/uL (0.0-0.2); EOSINOPHILS % (AUTO) 3.7 % (0.9-2.9); HEMATOCRIT 37.8 % (42.0-54.0); HEMOGLOBIN 12.8 g/dL (13.5-18.0); LYMPHOCYTES # (AUTO) 2.1 X10^3/uL (1.3-2.9); LYMPHOCYTES % (AUTO) 19.4 % (21.0-51.0); MEAN CORPUSCULAR HEMOGLOBIN 30.1 pg (27.0-34.0); MEAN CORPUSCULAR HGB CONC 33.9 g/dL (33.0-35.0); MEAN CORPUSCULAR VOLUME 88.7 fL (80.0-100.0); MEAN PLATELET VOLUME 8.1 fL (7.4-11.0); MONOCYTES # (AUTO) 0.8 x10^3/uL (0.3-0.8); MONOCYTES % (AUTO) 7.6 % (0.0-13.0); NEUTROPHILS # (AUTO) 7.5 x10^3/uL (2.2-4.8); NEUTROPHILS % (AUTO) 68.8 % (42.0-75.0); PLATELET COUNT 212 X10^3/uL (150.0-450.0); RED BLOOD COUNT 4.26 X10^6/uL (4.7-6.0)
[2019-05-11 04:30] LABS: ALBUMIN 2.9 g/dL (3.4-5.0); CALCIUM 8.9 mg/dL (8.5-10.1); CARBON DIOXIDE 25.8 mmol/L (21-32); COR CA(FOR HYPOALB) 9.8 mg/dL (8.5-10.1); CREATININE 1.6 mg/dL (0.70-1.30); TOTAL PROTEIN 6.5 g/dL (6.4-8.2)
[2019-05-11 04:41] LABS: MAGNESIUM 1.8 mg/dL (1.7-2.9)
[2019-05-11] MEDS: NS 1000 ML 1,000 ML IV SCH ×3 (06:03→23:00)
[2019-05-11] MEDS ORDERED: TOPROL XL ONE ×2 (08:08→20:12)
[2019-05-11] MEDS: NEURONTIN CAP 300 MG PO SCH (08:25)
[2019-05-11] MEDS: BENICAR TAB 40 MG PO SCH (08:25)
[2019-05-11] MEDS: ROCEPHIN VIAL 1 GRAM IVP SCH (08:26)
[2019-05-11] MEDS: MAG-OX TAB PO SCH (08:26)
[2019-05-11] MEDS: ELIQUIS PO SCH ×2 (08:26→21:16)
[2019-05-11] MEDS: FLOMAX PO SCH (08:26)
[2019-05-11] MEDS: HYDROCHLOROTHIAZIDE 25 MG TAB PO SCH (08:26)
[2019-05-11] MEDS: TOPROL XL PO SCH ×2 (08:37→21:17)
[2019-05-11] MEDS ORDERED: VALIUM PO NR (09:31)
[2019-05-11] MEDS: VSL#3 PO SCH (10:44)
--- NOTE | 2019-05-11 14:40 | MRI ---
STUDY: MRI OF THE BRAIN WITHOUT GADOLINIUM HISTORY: Status post CVA. Technique: Multiplanar multi-sequence MRI of the brain was obtained utilizing standard departmental protocol. Sagittal and axial T1, axial T2, FLAIR, diffusion (DWI/ADC), GRE, and coronal T2 images through the brain were performed. Comparison: Brain MRI from May 08, 2018. Findings: The sulci, cisterns and ventricles are prominent consistent with diffuse volume loss. There are confluent and scattered foci of T2 prolongation in the periventricular and subcortical white matter of both hemispheres. This is a nonspecific finding which likely represents microangiopathic change in a patient of this age. Since the prior examination, there has been no significant change in the previously noted infarct in the right side of the splenium of the corpus callosum. There appears to be pseudo normalization of the ADC map suggesting infarct age in the subacute range (10-14 days). There is no evidence of new acute territorial infarction, hemorrhage, mass, mass effect, or midline shift. There are no abnormal intra-axial or extra-axial fluid collections. The major intracranial vascular flow voids appear intact. The left vertebral artery appears dominant. There is bilateral aphakia. IMPRESSION: 1. Small infarct in the right side of the splenium of the corpus callosum. Diffusion characteristics favor subacute infarct, likely in the range of 10-14 days in age. Clinical correlation for timing of symptom onset is recommended. 2. Nonspecific white matter change and volume loss. Reported By:
--- NOTE | 2019-05-11 15:57 | RAD ---
History: Cough Exam: Portable chest Comparison: 01/05/2015 Technique: A portable AP chest was obtained. Findings: The heart is borderline enlarged but unchanged. The pulmonary vessels are normal. There are mild linear densities along the lung bases which are more prominent . No effusion or consolidation is seen. The bones are intact. IMPRESSION: Stable mild cardiomegaly with increasing discoid atelectasis or scarring along the lung bases. Reported By:
--- NOTE | 2019-05-11 19:00 | PCM.PROG ---
Progress Note - Progress Note for Day of Date of Exam: 05/10/19 - Subjective Subjective: IS BEING TREATED FOR ACUTE CVA. HE IS STATUS POST PROSTATECTOMY 04/30/19. TODAY, HE IS ALERT AND ORIENTED, LYING IN BED ON MORNING ROUNDS. HE REPORTS WEAKNESS AND ABDOMINAL PAIN TODAY. HE CONTINUES TO BE UNABLE TO OPEN HIS LEFT EYE. OTHERWISE, NEUROLOGICAL EXAM IS UNREMARKABLE. ON EXAM INATION, HEART IS REGULAR IN RATE AND RHYTHM. BILATERAL LUNGS ARE NOTED WITH DIMINISHED LUNG SOUNDS THROUGHOUT. ABDOMEN IS ROUND, SOFT, AND NOTED WITH MILD DIFFUSE TENDERNESS. THERE IS A MIGUEL DRAIN NOTED TO THE RLQ. DYE CATHETER NOTED TO BEDSIDE DRAINAGE. HIS VITALS THIS MORNING ARE: 98.7-77-26-98%-104/73. LABS WERE OBTAINED. ABNORMAL LAB VALUES INCLUDE THE FOLLOWING: RBC 4.25, HGB 12.7, HCT 37.6, POTASSIUM 3.3, BUN 20, CREATININE 1.38, MAGNESIUM 1.6, ALBUMIN 3.3. HE IS CURRENTLY RECEIVING IV FLUIDS, IV ROCEPHIN, ELIQUIS 2.5MG PO BID. WE PLAN TO OBTAIN A REPEAT BRAIN MRI TOMORROW MORNING. OTHERWISE, WE WILL FOLLOW UP WITH AM LABS AND CONTINUE TO MONITOR. - Past Medical Family Social History Past Med/Fam/Surg Hx: No changes since H&P Allergies: Allergies Iodinated Contrast- Oral and IV Dye Allergy (Verified 05/08/19 18:12) Iodine and Iodide Containing Produc Allergy (Verified 05/08/19 18:12) Sulfa (Sulfonamide Antibiotics) [SULFA] Allergy (Verified 05/08/19 18:12) - Review of Systems ROS: No change since H&P - Vital Signs and I&O's Vital Signs: Temperature 100.4 F Pulse Rate [Brachial] 68 Pulse Rate 96 Respiratory Rate 20 Blood Pressure [Left Arm] 121/77 Blood Pressure [Right Arm] 118/64 Blood Pressure 115/68 O2 Sat by Pulse Oximetry 97 Intake and Output: Intake & Output 05/09/19 05/10/19 05/11/19 05/12/19 11:59 11:59 11:59 11:59 Intake Total 240 / 240 1230 / 1230 3842 / 3842 1370 / 1370 Output Total 1110 / 1110 2330 / 2330 3180 / 3180 875 / 875 Balance -870 / -870 -1100 / -1100 662 / 662 495 / 495 - Physical Exam Oriented: Normal Eyes: Other (UNABLE TO OPEN LEFT EYE ) Ear: Normal Nose: Normal Throat: Normal Cardiovascular: Normal : Normal (DYE CATHETER IN PLACE ) Auscultation: Bowel Sounds: Normal Palpation: Normal Tenderness: Diffuse, Suprapubic, Mild. negative: Rebound, Guarding, Rigidity Skin: Normal Musculoskeletal: Normal Psychiatric: Normal Mood Description: Calm Affect: Normal Speech Pattern: Clear, Appropriate - Laboratory and Diagnostics Result Diagrams: 05/11/19 03:58 05/11/19 03:58 Labs: 05/09/19 05:50 Urine,Catheterized Urine Culture - Final Laboratory WBC 11.0 X10^3/uL (3.6-10.0) H 05/11/19 03:58 RBC 4.26 X10^6/uL (4.7-6.0) L 05/11/19 03:58 Hgb 12.8 g/dL (13.5-18.0) L 05/11/19 03:58 Hct 37.8 % (42.0-54.0) L 05/11/19 03:58 MCV 88.7 fL (80.0-100.0) 05/11/19 03:58 MCH 30.1 pg (27.0-34.0) 05/11/19 03:58 MCHC 33.9 g/dL (33.0-35.0) 05/11/19 03:58 RDW 14.0 % (11.6-16.5) 05/11/19 03:58 Plt Count 212 X10^3/uL (150.0-450.0) 05/11/19 03:58 MPV 8.1 fL (7.4-11.0) 05/11/19 03:58 Neut % (Auto) 68.8 % (42.0-75.0) 05/11/19 03:58 Lymph % (Auto) 19.4 % (21.0-51.0) L 05/11/19 03:58 [place] % (Auto) 7.6 % (0.0-13.0) 05/11/19 03:58 Eos % (Auto) 3.7 % (0.9-2.9) H 05/11/19 03:58 Baso % (Auto) 0.5 % (0.2-1.0) 05/11/19 03:58 Neut # (Auto) 7.5 x10^3/uL (2.2-4.8) H 05/11/19 03:58 Lymph # (Auto) 2.1 X10^3/uL (1.3-2.9) 05/11/19 03:58 [place] # (Auto) 0.8 x10^3/uL (0.3-0.8) 05/11/19 03:58 Eos # (Auto) 0.4 x10^3/uL (0.0-0.2) H 05/11/19 03:58 Baso # (Auto) 0.1 X10^3/uL (0.0-0.1) 05/11/19 03:58 Absolute Nucleated RBC 0.0 /100WBC 05/11/19 03:58 INR Target Range - 05/09/19 06:00 INR 1.05 (0.8-1.3) 05/09/19 06:00 APTT 28.0 SECONDS (22.9-36.5) 05/09/19 06:00 PTT Comment - 05/09/19 06:00 Sodium 139 mmol/L (136-145) 05/11/19 03:58 Corrected Sodium 140 mmol/L (136-145) 05/11/19 03:58 Potassium 3.9 mmol/L (3.5-5.1) 05/11/19 03:58 Chloride 105 mmol/L (98-107) 05/11/19 03:58 Carbon Dioxide 25.8 mmol/L (21-32) 05/11/19 03:58 BUN 19 mg/dL (7-18) H 05/11/19 03:58 Creatinine 1.60 mg/dL (0.70-1.30) H 05/11/19 03:58 Est GFR (MDRD) Af Amer 55 (>60) L 05/11/19 03:58 Est GFR (MDRD) Non-Af 46 (>60) L 05/11/19 03:58 Glucose 143 mg/dL (65-99) H 05/11/19 03:58 POC Glucose (mg/dL) 124 mg/dL (65-99) H 05/11/19 17:16 Lactic Acid 1.5 mmol/L (0.4-2.0) 05/11/19 03:58 Calcium 8.9 mg/dL (8.5-10.1) 05/11/19 03:58 Corrected Calcium 9.8 mg/dL (8.5-10.1) 05/11/19 03:58 Magnesium 1.8 mg/dL (1.7-2.9) 05/11/19 03:58 Total Bilirubin 0.50 mg/dL (0.2-1.0) 05/11/19 03:58 AST 22 Units/L (15-37) 05/11/19 03:58 ALT 37 Units/L (12-78) 05/11/19 03:58 Alkaline Phosphatase 64 Units/L (46-116) 05/11/19 03:58 Total Protein 6.5 g/dL (6.4-8.2) 05/11/19 03:58 Albumin 2.9 g/dL (3.4-5.0) L 05/11/19 03:58 Globulin 3.6 g/dL (2.5-4.5) 05/11/19 03:58 Albumin/Globulin Ratio 0.8 Ratio (1.1-2.1) L 05/11/19 03:58 Triglycerides 108 mg/dL (0-150) 05/10/19 04:07 Cholesterol 105 mg/dL (0-200) 05/10/19 04:07 LDL Cholesterol, Calc 56 mg/dL (0-100) 05/10/19 04:07 HDL Cholesterol 27 mg/dL (40-60) L 05/10/19 04:07 Cholesterol/HDL Ratio 3.9 (0.0-5.0) 05/10/19 04:07 Specimen Type Catherized urine 05/09/19 05:50 Urine Color Yellow (YELLOW) 05/09/19 05:50 Urine Appearance Slightly hazy (CLEAR) 05/09/19 05:50 Urine pH 5.0 (5.0 - 8.0) 05/09/19 05:50 Ur Specific [place] 1.020 (1.000-1.030) 05/09/19 05:50 Urine Protein 2+ (NEGATIVE) 05/09/19 05:50 Urine Glucose (UA) Negative (NEGATIVE) 05/09/19 05:50 Urine Ketones Negative (NEGATIVE) 05/09/19 05:50 Urine Occult Blood 5+ (NEGATIVE) 05/09/19 05:50 Urine Nitrite Negative (NEGATIVE) 05/09/19 05:50 Urine Bilirubin Negative (NEGATIVE) 05/09/19 05:50 Urine Urobilinogen Normal (NORMAL) 05/09/19 05:50 Ur Leukocyte Esterase 1+ (NEGATIVE) 05/09/19 05:50 Urine RBC 10-20 /HPF (NONE SEEN) 05/09/19 05:50 Urine WBC 5-10 /HPF (NONE SEEN) 05/09/19 05:50 Ur Squamous Epith Cells Rare /HPF (NEGATIVE) 05/09/19 05:50 Urine Bacteria Trace /HPF (NEGATIVE) 05/09/19 05:50 Ur Culture Indicated? Yes/culture set up 05/09/19 05:50 - Plan (1) Acute CVA (cerebrovascular accident) Status: Acute Plan: ELIQUIS 2.5MG PO BID, REPEAT BRAIN MRI, CONTINUE TO MONITOR (2) Status post prostatectomy Status: Acute Plan: MIGUEL DRAIN IN PLACE, DYE CATHETER TO BEDSIDE DRAINAGE, CONTINUE TO MONITOR (3) Urinary tract infection Status: Acute Qualifiers: Urinary tract infection type: acute cystitis Hematuria presence: with hematuria Qualified Code(s): N30.01 - Acute cystitis with hematuria Plan: IV ROCEPHIN, IV FLUIDS, CONTINUE TO MONITOR
[2019-05-11] MEDS: SNACK - Diabetic Appropriate PO SCH (20:00)
[2019-05-11] MEDS: CRESTOR TAB 10 MG PO SCH (21:17)
[2019-05-12 06:22] LABS: BASOPHILS % (AUTO) 0.4 % (0.2-1.0); EOSINOPHILS # (AUTO) 0.5 x10^3/uL (0.0-0.2); EOSINOPHILS % (AUTO) 4.4 % (0.9-2.9); HEMATOCRIT 34.9 % (42.0-54.0); HEMOGLOBIN 11.9 g/dL (13.5-18.0); LYMPHOCYTES # (AUTO) 2.1 X10^3/uL (1.3-2.9); LYMPHOCYTES % (AUTO) 18.2 % (21.0-51.0); MEAN CORPUSCULAR HEMOGLOBIN 29.9 pg (27.0-34.0); MONOCYTES # (AUTO) 0.8 x10^3/uL (0.3-0.8); MONOCYTES % (AUTO) 7.4 % (0.0-13.0); NEUTROPHILS # (AUTO) 7.8 x10^3/uL (2.2-4.8); NEUTROPHILS % (AUTO) 69.6 % (42.0-75.0); PLATELET COUNT 231 X10^3/uL (150.0-450.0); RED BLOOD COUNT 3.97 X10^6/uL (4.7-6.0); RED CELL DISTRIBUTION WIDTH 13.9 % (11.6-16.5); WHITE BLOOD COUNT 11.3 X10^3/uL (3.6-10.0)
[2019-05-12 06:30] LABS: ALANINE AMINOTRANSFERASE 31 Units/L (12-78); ALBUMIN 2.7 g/dL (3.4-5.0); ALKALINE PHOSPHATASE 55 Units/L (46-116); ASPARTATE AMINO TRANSFERASE 15 Units/L (15-37); BLOOD UREA NITROGEN 19 mg/dL (7-18); CALCIUM 9.1 mg/dL (8.5-10.1); CARBON DIOXIDE 25.3 mmol/L (21-32); CHLORIDE 104 mmol/L (98-107); COR CA(FOR HYPOALB) 10.1 mg/dL (8.5-10.1); COR NA(FOR HYPERGLY) 141 mmol/L (136-145); CREATININE 1.44 mg/dL (0.70-1.30); SODIUM 140 mmol/L (136-145); TOTAL PROTEIN 6.2 g/dL (6.4-8.2); eGFR NON BLACK RACES 51 (>60)
[2019-05-12] MEDS ORDERED: TOPROL XL ONE ×2 (08:26→20:10)
[2019-05-12] MEDS: VSL#3 PO SCH (08:33)
[2019-05-12] MEDS: ROCEPHIN VIAL 1 GRAM IVP SCH (08:33)
[2019-05-12] MEDS: ELIQUIS PO SCH ×2 (08:33→20:37)
[2019-05-12] MEDS: NEURONTIN CAP 300 MG PO SCH (08:33)
[2019-05-12] MEDS: MAG-OX TAB PO SCH (08:33)
[2019-05-12] MEDS: FLOMAX PO SCH (08:33)
--- NOTE | 2019-05-12 09:37 | RAD ---
HISTORY: Shortness of breath. Study: Portable chest. Comparison: Chest x-ray dated May 11, 2019. Findings: The trachea is midline. The cardiac silhouette is stably enlarged without overt signs of failure. Low lung volumes somewhat limits evaluation. Bibasilar scarring versus atelectasis. No obvious focal consolidation, pleural effusion, or pneumothorax. The bony thorax is unremarkable. IMPRESSION: No acute cardiopulmonary disease. Reported By:
[2019-05-12] MEDS: NS 1000 ML 1,000 ML IV SCH ×2 (10:55→15:06)
[2019-05-12] MEDS: FORTAZ or TAZICEF VIAL INJ IVP SCH ×3 (10:55→22:00)
[2019-05-12] MEDS: LEVAQUIN PREMIX IV 500 MG 500 MG/100 ML BAG IV SCH (10:55)
[2019-05-12] MEDS: HYDROCHLOROTHIAZIDE 25 MG TAB PO SCH (11:30)
[2019-05-12] MEDS: BENICAR TAB 40 MG PO SCH (11:30)
[2019-05-12] MEDS: TOPROL XL PO SCH ×2 (11:30→20:36)
--- NOTE | 2019-05-12 17:20 | PCM.PROG ---
Progress Note - Progress Note for Day of Date of Exam: 05/11/19 - Subjective Subjective: IS BEING TREATED FOR ACUTE CVA. HE IS STATUS POST PROSTATECTOMY 04/30/19. TODAY, HE IS ALERT AND ORIENTED, LYING IN BED ON MORNING ROUNDS. HE CONTINUES WITH WEAKNESS AND ABDOMINAL PAIN TODAY. HE REPORTS THAT ABDOMINAL PAIN HAS SLIGHTLY IMPROVED. HIS LEFT EYE IS JUST SLIGHTLY OPENED THIS MORNING, WHEREAS IT WAS COMPLETELY CLOSED YESTERDAY. ON EXAMINATION, HEART IS REGULAR IN RATE AND RHYTHM. BILATERAL LUNGS ARE NOTED WITH DIMINISHED LUNG SOUNDS THROUGHOUT. ABDOMEN IS ROUND, SOFT, AND NOTED WITH MILD DIFFUSE TENDERNESS. THERE IS A MIGUEL DRAIN NOTED TO THE RLQ. DYE CATHETER NOTED TO BEDSIDE DRAINAGE. HIS VITALS THIS MORNING ARE: 98.0-66-17-99%-111/55. LABS WERE OBTAINED. ABNORMAL LAB VALUES INCLUDE THE FOLLOWING: WBC 11.0, RBC 4.26, HGB 12.8, HCT 37.8, BUN 19, CREATININE 1.60, GLUCOSE 143, ALBUMIN 2.9. BLOOD AND URINE CULTURES ARE PENDING. HE IS CURRENTLY RECEIVING IV FLUIDS, IV ROCEPHIN, ELIQUIS 2.5MG PO BID. WE PLAN TO OBTAIN A REPEAT BRAIN MRI THIS MORNING. WE WILL START PROBIOTICS AND OBTAIN A CHEST XRAY. OTHERWISE, WE WILL FOLLOW UP WITH AM LABS AND CONTINUE TO MONITOR. - Past Medical Family Social History Past Med/Fam/Surg Hx: No changes since H&P Allergies: Allergies Iodinated Contrast- Oral and IV Dye Allergy (Verified 05/08/19 18:12) Iodine and Iodide Containing Produc Allergy (Verified 05/08/19 18:12) Sulfa (Sulfonamide Antibiotics) [SULFA] Allergy (Verified 05/08/19 18:12) - Review of Systems ROS: No change since H&P - Vital Signs and I&O's Vital Signs: Temperature 99.1 F Pulse Rate [Brachial] 76 Pulse Rate 96 Respiratory Rate 20 Blood Pressure [Left Arm] 126/65 Blood Pressure [Right Arm] 118/64 Blood Pressure 115/68 O2 Sat by Pulse Oximetry 100 Intake and Output: Intake & Output 05/10/19 05/11/19 05/12/19 05/13/19 11:59 11:59 11:59 11:59 Intake Total 1230 / 1230 3842 / 3842 3280 / 3280 1560 / 1560 Output Total 2330 / 2330 3180 / 3180 3425 / 3425 1200 / 1200 Balance -1100 / -1100 662 / 662 -145 / -145 360 / 360 - Physical Exam Oriented: Normal Eyes: Other (UNABLE TO OPEN LEFT EYE ) Ear: Normal Nose: Normal Throat: Normal Cardiovascular: Normal : Normal (DYE CATHETER IN PLACE ) Auscultation: Bowel Sounds: Normal Palpation: Normal Tenderness: Diffuse, Suprapubic, Mild. negative: Rebound, Guarding, Rigidity Skin: Normal Musculoskeletal: Normal Psychiatric: Normal Mood Description: Calm Affect: Normal Speech Pattern: Clear, Appropriate - Laboratory and Diagnostics Result Diagrams: 05/12/19 05:20 05/12/19 05:20 Labs: 05/10/19 17:34 Blood Blood Culture - Preliminary 05/10/19 17:10 Blood Blood Culture - Preliminary 05/09/19 05:50 Urine,Catheterized Urine Culture - Final Laboratory WBC 11.3 X10^3/uL (3.6-10.0) H 05/12/19 05:20 RBC 3.97 X10^6/uL (4.7-6.0) L 05/12/19 05:20 Hgb 11.9 g/dL (13.5-18.0) L 05/12/19 05:20 Hct 34.9 % (42.0-54.0) L 05/12/19 05:20 MCV 88.0 fL (80.0-100.0) 05/12/19 05:20 MCH 29.9 pg (27.0-34.0) 05/12/19 05:20 MCHC 34.0 g/dL (33.0-35.0) 05/12/19 05:20 RDW 13.9 % (11.6-16.5) 05/12/19 05:20 Plt Count 231 X10^3/uL (150.0-450.0) 05/12/19 05:20 MPV 8.0 fL (7.4-11.0) 05/12/19 05:20 Neut % (Auto) 69.6 % (42.0-75.0) 05/12/19 05:20 Lymph % (Auto) 18.2 % (21.0-51.0) L 05/12/19 05:20 [place] % (Auto) 7.4 % (0.0-13.0) 05/12/19 05:20 Eos % (Auto) 4.4 % (0.9-2.9) H 05/12/19 05:20 Baso % (Auto) 0.4 % (0.2-1.0) 05/12/19 05:20 Neut # (Auto) 7.8 x10^3/uL (2.2-4.8) H 05/12/19 05:20 Lymph # (Auto) 2.1 X10^3/uL (1.3-2.9) 05/12/19 05:20 [place] # (Auto) 0.8 x10^3/uL (0.3-0.8) 05/12/19 05:20 Eos # (Auto) 0.5 x10^3/uL (0.0-0.2) H 05/12/19 05:20 Baso # (Auto) 0.0 X10^3/uL (0.0-0.1) 05/12/19 05:20 Absolute Nucleated RBC 0.0 /100WBC 05/12/19 05:20 INR Target Range - 05/09/19 06:00 INR 1.05 (0.8-1.3) 05/09/19 06:00 APTT 28.0 SECONDS (22.9-36.5) 05/09/19 06:00 PTT Comment - 05/09/19 06:00 Sodium 140 mmol/L (136-145) 05/12/19 05:20 Corrected Sodium 141 mmol/L (136-145) 05/12/19 05:20 Potassium 3.5 mmol/L (3.5-5.1) 05/12/19 05:20 Chloride 104 mmol/L (98-107) 05/12/19 05:20 Carbon Dioxide 25.3 mmol/L (21-32) 05/12/19 05:20 BUN 19 mg/dL (7-18) H 05/12/19 05:20 Creatinine 1.44 mg/dL (0.70-1.30) H 05/12/19 05:20 Est GFR (MDRD) Af Amer > 60 (>60) 05/12/19 05:20 Est GFR (MDRD) Non-Af 51 (>60) L 05/12/19 05:20 Glucose 128 mg/dL (65-99) H 05/12/19 05:20 POC Glucose (mg/dL) 127 mg/dL (65-99) H 05/12/19 16:52 Lactic Acid 1.5 mmol/L (0.4-2.0) 05/11/19 03:58 Calcium 9.1 mg/dL (8.5-10.1) 05/12/19 05:20 Corrected Calcium 10.1 mg/dL (8.5-10.1) 05/12/19 05:20 Magnesium 1.8 mg/dL (1.7-2.9) 05/11/19 03:58 Total Bilirubin 0.50 mg/dL (0.2-1.0) 05/12/19 05:20 AST 15 Units/L (15-37) 05/12/19 05:20 ALT 31 Units/L (12-78) 05/12/19 05:20 Alkaline Phosphatase 55 Units/L (46-116) 05/12/19 05:20 Total Protein 6.2 g/dL (6.4-8.2) L 05/12/19 05:20 Albumin 2.7 g/dL (3.4-5.0) L 05/12/19 05:20 Globulin 3.5 g/dL (2.5-4.5) 05/12/19 05:20 Albumin/Globulin Ratio 0.8 Ratio (1.1-2.1) L 05/12/19 05:20 Triglycerides 108 mg/dL (0-150) 05/10/19 04:07 Cholesterol 105 mg/dL (0-200) 05/10/19 04:07 LDL Cholesterol, Calc 56 mg/dL (0-100) 05/10/19 04:07 HDL Cholesterol 27 mg/dL (40-60) L 05/10/19 04:07 Cholesterol/HDL Ratio 3.9 (0.0-5.0) 05/10/19 04:07 Specimen Type Catherized urine 05/09/19 05:50 Urine Color Yellow (YELLOW) 05/09/19 05:50 Urine Appearance Slightly hazy (CLEAR) 05/09/19 05:50 Urine pH 5.0 (5.0 - 8.0) 05/09/19 05:50 Ur Specific [place] 1.020 (1.000-1.030) 05/09/19 05:50 Urine Protein 2+ (NEGATIVE) 05/09/19 05:50 Urine Glucose (UA) Negative (NEGATIVE) 05/09/19 05:50 Urine Ketones Negative (NEGATIVE) 05/09/19 05:50 Urine Occult Blood 5+ (NEGATIVE) 05/09/19 05:50 Urine Nitrite Negative (NEGATIVE) 05/09/19 05:50 Urine Bilirubin Negative (NEGATIVE) 05/09/19 05:50 Urine Urobilinogen Normal (NORMAL) 05/09/19 05:50 Ur Leukocyte Esterase 1+ (NEGATIVE) 05/09/19 05:50 Urine RBC 10-20 /HPF (NONE SEEN) 05/09/19 05:50 Urine WBC 5-10 /HPF (NONE SEEN) 05/09/19 05:50 Ur Squamous Epith Cells Rare /HPF (NEGATIVE) 05/09/19 05:50 Urine Bacteria Trace /HPF (NEGATIVE) 05/09/19 05:50 Ur Culture Indicated? Yes/culture set up 05/09/19 05:50 - Plan (1) Acute CVA (cerebrovascular accident) Status: Acute Plan: ELIQUIS 2.5MG PO BID, REPEAT BRAIN MRI, CONTINUE TO MONITOR (2) Status post prostatectomy Status: Acute Plan: MIGUEL DRAIN IN PLACE, DYE CATHETER TO BEDSIDE DRAINAGE, CONTINUE TO MONITOR (3) Urinary tract infection Status: Acute Qualifiers: Urinary tract infection type: acute cystitis Hematuria presence: with hematuria Qualified Code(s): N30.01 - Acute cystitis with hematuria Plan: IV ROCEPHIN, IV FLUIDS, CONTINUE TO MONITOR
[2019-05-12] MEDS: SNACK - Diabetic Appropriate PO SCH (20:38)
[2019-05-12] MEDS: CRESTOR TAB 10 MG PO SCH (20:38)
[2019-05-13] MEDS: TYLENOL 325 MG TAB PO PRN
[2019-05-13] MEDS: NS 1000 ML 1,000 ML IV SCH ×2 (05:16→06:25)
[2019-05-13 05:58] LABS: BASOPHILS % (AUTO) 0.6 % (0.2-1.0); EOSINOPHILS # (AUTO) 0.5 x10^3/uL (0.0-0.2); EOSINOPHILS % (AUTO) 5.9 % (0.9-2.9); HEMATOCRIT 34.9 % (42.0-54.0); HEMOGLOBIN 11.7 g/dL (13.5-18.0); LYMPHOCYTES # (AUTO) 1.8 X10^3/uL (1.3-2.9); MEAN CORPUSCULAR HEMOGLOBIN 29.6 pg (27.0-34.0); MEAN CORPUSCULAR HGB CONC 33.5 g/dL (33.0-35.0); MEAN CORPUSCULAR VOLUME 88.3 fL (80.0-100.0); MEAN PLATELET VOLUME 7.7 fL (7.4-11.0); MONOCYTES # (AUTO) 0.6 x10^3/uL (0.3-0.8); MONOCYTES % (AUTO) 6.9 % (0.0-13.0); NEUTROPHILS # (AUTO) 5.7 x10^3/uL (2.2-4.8); NEUTROPHILS % (AUTO) 65.6 % (42.0-75.0); PLATELET COUNT 247 X10^3/uL (150.0-450.0); RED BLOOD COUNT 3.96 X10^6/uL (4.7-6.0); RED CELL DISTRIBUTION WIDTH 13.8 % (11.6-16.5); WHITE BLOOD COUNT 8.6 X10^3/uL (3.6-10.0)
[2019-05-13] MEDS: FORTAZ or TAZICEF VIAL INJ IVP SCH (06:22)
[2019-05-13 06:26] LABS: ALANINE AMINOTRANSFERASE 50 Units/L (12-78); ALBUMIN 2.6 g/dL (3.4-5.0); ALKALINE PHOSPHATASE 60 Units/L (46-116); ASPARTATE AMINO TRANSFERASE 29 Units/L (15-37); BLOOD UREA NITROGEN 20 mg/dL (7-18); CALCIUM 9.2 mg/dL (8.5-10.1); CARBON DIOXIDE 27.2 mmol/L (21-32); CHLORIDE 106 mmol/L (98-107); COR CA(FOR HYPOALB) 10.3 mg/dL (8.5-10.1); COR NA(FOR HYPERGLY) 142 mmol/L (136-145); CREATININE 1.37 mg/dL (0.70-1.30); SODIUM 141 mmol/L (136-145); TOTAL PROTEIN 6.4 g/dL (6.4-8.2); eGFR NON BLACK RACES 54 (>60)
[2019-05-13] MEDS ORDERED: TOPROL XL ONE (08:08)
[2019-05-13] MEDS: MAG-OX TAB PO SCH (08:25)
[2019-05-13] MEDS: ELIQUIS PO SCH (08:25)
[2019-05-13] MEDS: NEURONTIN CAP 300 MG PO SCH (08:25)
[2019-05-13] MEDS: VSL#3 PO SCH (08:25)
[2019-05-13] MEDS: FLOMAX PO SCH (08:25)
[2019-05-13] MEDS: BENICAR TAB 40 MG PO SCH ×2 (08:26→10:02)
[2019-05-13] MEDS ORDERED: TORADOL 60 MG VIAL IM NR (10:00)
[2019-05-13] MEDS: HYDROCHLOROTHIAZIDE 25 MG TAB PO SCH (10:02)
[2019-05-13] MEDS: TOPROL XL PO SCH (10:02)
[2019-05-13] MEDS: LEVAQUIN PREMIX IV 500 MG 500 MG/100 ML BAG IV SCH (10:03)
[2019-05-13 10:52] VITALS: BP 127/66
== END 2019-05-13 12:40 | disposition home or self-care (01) | DRG 690 ==
LOC: ER 18:11 → ICU 20:43 → MED/SURG 05-11 15:08
PROVIDERS: ADMIT Internal Medicine; ATTEND Internal Medicine
DX: I63.89 Other cerebral infarction; E11.65 Type 2 diabetes mellitus with hyperglycemia; R93.0 Abnormal findings on diagnostic imaging of skull and head, not elsewhere classified; N30.01 Acute cystitis with hematuria; Z98.890 Other specified postprocedural states; H02.402 Unspecified ptosis of left eyelid; I10 Essential (primary) hypertension; Z90.79 Acquired absence of other genital organ(s)
CPT/HCPCS: 36415; 70544; 70551; 71010; 71045; 74000; 74018; 74176; 80053; 80061; 81001; 82565; 83605; 83735; 84132; 84520; 85025; 85610; 85730; 87040; 87086; 93005; 93880; 96365; 96374; 96375; 97110; 97140; 97163; 99282; 99285; A4216; A4222; J0696; J0713; J1644; J1885; J1956; J3490; J7030

== ENCOUNTER 2019-12-23 14:12 | Observation (INO) ==
[2019-12-23 14:22] VITALS: BMI 32.1
--- NOTE | 2019-12-23 15:07 | DR.GENAD ---
HPI Time Seen Time Seen by Provider: 12/23/19 15:07 PCP Primary Care Physician: ANNABEL HPI Comment HPI Comment: PATIENT IS 69YR OLD MALE IN ER WITH HISTORY OF INCREASING LEFT SIDED WEAKNESS. RESIDUAL LEFT SIDED WEAKNESS SINCE STROKE IN 2019. WEAKNESS N OTED SATURDAY AND IS RESOLVING. STILL SLIGHTLY OFF BALANCE CLIMBING STAIS. SATURDAY ALSO, LEFT FACIAL DROOLING AND DROOPING THAT HAVE RESOLVE. HISTORY MYASTHENIS GRAVIS BUT SYMPTOMS WITH MG IS NOT UNILATERAL. HEADACHE SATURDAY BUT CURRENTLY NO HEADACHE. NO FEVER. PATIENT CALL HIS NEUROLOGIST AND HE WANTED HIM EVALUATED. Complaint/Symptoms Chief Complaint Doctors Comments: LEFT SIDED WEAKNESS AND LEFT FACIAL DROOPING DROOLING SATURDAY. RESOLVING.NEUROLOGIST WANT HIM EVALUATED. Chief Complaint:: PT. STATES ON SATURDAY HE HAD A HEADACHE, HIS LEFT EYE BEGAN DROOPING AND HE WAS DROOLING. PT. STATES HE WOULD LIKE TO GET CHECKED TO SEE IF HE HAD A STROKE. PT. HAD A CVA DURING SURGERY IN APRIL OF 2019 WHICH AFFECTED HIS LEFT EYE AND LEFT LEG (WEAKNESS WITH THE EXTREMITY). PT. HAS NO PAIN AT THIS TIME BUT STATES YESTERDAY, HE JUST FELT BAD. ON PHYSOSTIMIN FOR MYASTHENIA GRAVIS. Nurses notes reviewed Nurses Notes Review: Yes Source History Provided: Patient Mode of Arrival Mode of Arrival: Ambulatory Timing Onset of Chief Complaint: 12/20/19 Came on: Suddenly Duration Duration: Since Onset Duration: Days Location Location: HEADACHE. Severity Severity: Moderate Modifying Factors Worsens:: EXERTION. Improves:: REST. Associated Signs and Symptoms Associated Signs and Symptoms: HEADACHE. Other History Other History: HISTORY PREVIOUS CVA AMD MYATHENIA GRAVIS. PMH PMH Past Medical History: Yes Past Medical History: CVA, Diabetes and Hypertension Past Surgical History: Yes Surgical History: Lithotripsy and Other Family History History of Family Medical Conditions: Yes Family Medical History: Heart Failure and Hypertension Social History Does patient currently use any type of tobacco product: No Have you used tobacco products in the last 12 months: No Type of Tobacco Use: None Does any household member use tobacco: No Alcohol Use: None Do you use any recreational Drugs:: No Lives With: Spouse Lives Where: Home infectious screening In the last 2 months have you had wt loss of >10#?: NO Have you had fever, night sweats or hemotysis?: No Have you traveled outside the country in the last 6 months?: No Isolation: Standard ROS Review of Systems Constitutional: No Symptoms Reported, See HPI and Weakness (LEFT SIDED WEAKNE SS.); negative Fever Eyes: No Symptoms Reported, See HPI and Other; negative Blurred Vision, Photophobia and Diplopia ENTM: No Symptoms Reported and See HPI; negative Ear Pain, Nose Discharge, Nose Congestion and Throat Pain Respiratoy: No Symptoms Reported and See HPI; negative Productive Cough, Short of Breath and Wheezing Cardiovascular: No Symptoms Reported and See HPI; negative Chest Pain, Edema and Palpitations Gastrointestinal/Abdominal: No Symptoms Reported and See HPI; negative Abdominal Pain, Diarrhea, Nausea and Vomiting Genitourinary: No Symptoms Reported and See HPI; negative Dysuria, Frequency and Hematuria Neurological: No Symptoms Reported, See HPI, Headache, Numbness, Paresthesia, Weakness (LEFT SIDED WEAKNESS.), Dizziness, Problems Walking and Other (MYASTHENIA GRAVIS.) Musculoskeletal: No Symptoms Reported, See HPI and Other (MYASTHENIA GRAVIS.) Integumentary: No Symptoms Reported and See HPI; negative Change in Color, Rash and Juandice Hematologic/Lymphatic: No Symptoms Reported and See HPI; negative Swollen Glands Endocrine: No Symptoms Reported and See HPI; negative Increased Thirst, Increased Urine and Decreased Appetite Psychiatric: No Symptoms Reported and See HPI All Other Systems: Reviewed and Negative PE Vital Signs Vitals: Temperature 97.5 F Pulse Rate 91 Respiratory Rate 17 Blood Pressure [Left Arm] 131/73 Blood Pressure [Right Arm] 118/64 Blood Pressure 129/79 O2 Sat by Pulse Oximetry 94 General Limitations: No Limitations General Appearance: Alert and In No Apparent Distress Head Head Exam: Atraumatic Eyes Eye exam: Normal Appearance, PERRL and EOMI; negative Scleral Icterus and Conjunctival Injection ENT ENT Exam: Normal Exam, Normal Oropharynx, Normal External Ear Exam and TM's Normal Bilaterally External Ear Exam: Normal External Inspection; negative Mastoid Tenderness TM/Canal Exam: Bilateral: Normal Nose Exam: Normal Nose Exam; negative Sinus Tenderness and Nasal Deviation Mouth Exam: Drooling (LEFT SIDE DROOLING SATURDAY THAT IS RESOLVED.); negative Lip Swelling and Tongue Swelling Throat Exam: Normal Inspection; negative Tonsillar Erythema, Tonsillomegaly and Tonsillar Exudate Neck Neck Exam: Normal Inspection and Trachea Midline; negative Tenderness Chest Chest Inspection: Normal Inspection and Symmetric Chest Wall Rise; negative Tenderness Respiratory Respiratory Exam: Normal Lung Sounds Bilat; negative Accessory Muscle Use, Chest Wall Tenderness and Respiratory Distress Respiratory Exam: Bilateral: Clear to Auscultation and Bilateral: Rhonchi and Lo wer: Rhonchi Cardiovascular Cardiovascular Exam: Regular Rate, Normal Rhythm and Normal Heart Sounds; negative Systolic Murmur and Diastolic Murmur Abdominal Exam Abdominal Exam: Normal Inspection, Normal Bowel Sounds and Soft; negative Tende rness Extremities Extremities Exam: Normal Inspection and Normal Capillary Refill; negative Tenderness, Edema and Calf Tenderness Back Back Exam: Normal Inspection; negative Tenderness, (R) CVA Tenderness, (L) CVA Tenderness, Paraspinal Tenderness and Vertebral Tenderness Neurologic Neurological Exam: Alert, Oriented X3 and Motor Sensory Deficit (MILD LEFT SIDED WEAKNESS, CHRONIC.) Psychiatric Psychiatric Exam: Normal Affect and Normal Mood Skin Skin Exam: Warm, Dry, Intact and Normal Color MDM Additional Information Additional Information Obtained From: Family Differential Diagnosis Differential Diagnosis: CVA, MS, MYASTHENIA GRAVIS, TIA, UTI. COURSE Treatment Treatment: SEE ORDERS. Education/Counseling Education/Counseling: Patient Educated On: Diagnosis and Needs for Follow Up ROR Labs Reviewed Laboratory Results Reviewed?: Yes Result Diagrams: 12/23/19 16:30 12/23/19 16:30 Laboratory: WBC 9.3 X10^3/uL (3.6-10.0) 12/23/19 16:30 RBC 4.87 X10^6/uL (4.7-6.0) 12/23/19 16:30 Hgb 14.4 g/dL (13.5-18.0) 12/23/19 16:30 Hct 42.2 % (42.0-54.0) 12/23/19 16:30 MCV 86.8 fL (80.0-100.0) 12/23/19 16:30 MCH 29.5 pg (27.0-34.0) 12/23/19 16:30 MCHC 34.1 g/dL (33.0-35.0) 12/23/19 16: RDW 15.0 % (11.6-16.5) 12/23/19 16: Plt Count 165 X10^3/uL (150.0-450.0) 12/23/19 16:30 MPV 7.5 fL (7.4-11.0) 12/23/19 16:30 Neut % (Auto) 58.6 % (42.0-75.0) 12/23/19 16:30 Lymph % (Auto) 32.2 % (21.0-51.0) 12/23/19 16:30 [place] % (Auto) 7.2 % (0.0-13.0) 12/23/19 16:30 Eos % (Auto) 1.6 % (0.9-2.9) 12/23/19 16:30 Baso % (Auto) 0.4 % (0.2-1.0) 12/23/19 16:30 Neut # (Auto) 5.5 x10^3/uL (2.2-4.8) H 12/23/19 16:30 Lymph # (Auto) 3.0 X10^3/uL (1.3-2.9) H 12/23/19 16:30 [place] # (Auto) 0.7 x10^3/uL (0.3-0.8) 12/23/19 16:30 Eos # (Auto) 0.2 x10^3/uL (0.0-0.2) 12/23/19 16:30 Baso # (Auto) 0.0 X10^3/uL (0.0-0.1) 12/23/19 16:30 Absolute Nucleated RBC 0.0 /100WBC 12/23/19 16:30 Sodium 139 mmol/L (136-145) 12/23/19 16:30 Corrected Sodium 140 mmol/L (136-145) 12/23/19 16:30 Potassium 3.2 mmol/L (3.5-5.1) L 12/23/19 16:30 Chloride 103 mmol/L (98-107) 12/23/19 16:30 Carbon Dioxide 31.1 mmol/L (21-32) 12/23/19 16:30 BUN 26 mg/dL (7-18) H 12/23/19 16:30 Creatinine 1.32 mg/dL (0.70-1.30) H 12/23/19 16:30 Est GFR (MDRD) Af Amer > 60 (>60) 12/23/19 16:30 Est GFR (MDRD) Non-Af 57 (>60) L 12/23/19 16:30 Glucose 138 mg/dL (65-99) H 12/23/19 16:30 Calcium 9.3 mg/dL (8.5-10.1) 12/23/19 16:30 Corrected Calcium TNP 12/23/19 16:30 Magnesium 2.1 mg/dL (1.7-2.9) 12/23/19 16:30 Total Bilirubin 0.30 mg/dL (0.2-1.0) 12/23/19 16:30 AST 29 Units/L (15-37) 12/23/19 16:30 ALT 53 Units/L (12-78) 12/23/19 16:30 Alkaline Phosphatase 70 Units/L (46-116) 12/23/19 16:30 Creatine Kinase 60 Units/L (39-308) 12/23/19 16:30 CK-MB (CK-2) < 1.0 ng/mL (0-4.0) 12/23/19 16:30 CK/CKMB % Calc 1.7 % (<4) 12/23/19 16:30 Troponin I < 0.02 ng/mL (0-1.5) 12/23/19 16:30 Total Protein 6.6 g/dL (6.4-8.2) 12/23/19 16:30 Albumin 3.4 g/dL (3.4-5.0) 12/23/19 16:30 Globulin 3.2 g/dL (2.5-4.5) 12/23/19 16:30 Albumin/Globulin Ratio 1.1 Ratio (1.1-2.1) 12/23/19 16:30 Other Results Comments: IMPRESSION Mild cardiomegaly which is more prominent with no acute pulmonary abnormality. XRAY XRAY Interpreted by: Radiologist (REPORT NOTED AND DISCUSSED WITH PATIENT.) and Self EKG Rate: 73 Carpenter: Normal Rhythm: NSR and PACs Block: None Hypertrophy: None ST: Nonsp Opioid Opioid Risk Tool Age (Suraj box if 16-45): No History of Preadolescent Sexual Abuse: No Total: 0 Total Score Risk Category: Low Risk Copyright: [facility] predicting aberrant behaviors Diagnosis Discharge Problem: TIA (transient ischemic attack), Acute left-sided weakness, Myasthenia gravis Instructions Forms: Excuse From Work Patient Portal
--- NOTE | 2019-12-23 15:10 | CT ---
HISTORYWEAKNESS, LT SIDE FACIAL DROOPING ONSET SUNDAYSTUDYBRAIN W/O CONCOMPARISONNoneTECHNIQUEMultiple axial images of the abdomen and pelvis were obtained from the lung bases to the pubic symphysis without the administration of IV contrast. Dose reduction techniques including Automated Exposure Control (AEC) and adjustment of mA and kV were utilized.FINDINGSThe ventricles are mildly enlarged there is diffuse mild prominence of the cortical sulci. There is moderate periventricular low density bilaterally. No intracranial hemorrhage or edema is seen. There is no extra-axial fluid collection or mass. The midline structures unremarkable. The bones are intactIMPRESSIONMild atrophy and moderate chronic microischemic changes scattered in the deep white matter with no acute abnormality seen.Electronically signed by: BIANCA WINTERS (Dec 23, 2019 15:09:40)
--- NOTE | 2019-12-23 16:35 | RAD ---
HISTORYSOBSTUDYCHEST, 1 [id number]/2019FINDINGSThe heart is mildly enlarged and more prominent. The pulmonary vessels are normal. The lungs are mildly hyperinflated but clear. No consolidation or effusion is seen. The bones are intact.IMPRESSIONMild cardiomegaly which is more prominent with no acute pulmonary abnormality.Electronically signed by: BIANCA WINTERS (Dec 23, 2019 16:34:06)
[2019-12-23 16:39] LABS: BASOPHILS % (AUTO) 0.4 % (0.2-1.0); EOSINOPHILS # (AUTO) 0.2 x10^3/uL (0.0-0.2); EOSINOPHILS % (AUTO) 1.6 % (0.9-2.9); HEMATOCRIT 42.2 % (42.0-54.0); HEMOGLOBIN 14.4 g/dL (13.5-18.0); LYMPHOCYTES % (AUTO) 32.2 % (21.0-51.0); MEAN CORPUSCULAR HEMOGLOBIN 29.5 pg (27.0-34.0); MEAN CORPUSCULAR HGB CONC 34.1 g/dL (33.0-35.0); MEAN CORPUSCULAR VOLUME 86.8 fL (80.0-100.0); MEAN PLATELET VOLUME 7.5 fL (7.4-11.0); MONOCYTES # (AUTO) 0.7 x10^3/uL (0.3-0.8); MONOCYTES % (AUTO) 7.2 % (0.0-13.0); NEUTROPHILS # (AUTO) 5.5 x10^3/uL (2.2-4.8); NEUTROPHILS % (AUTO) 58.6 % (42.0-75.0); PLATELET COUNT 165 X10^3/uL (150.0-450.0); RED BLOOD COUNT 4.87 X10^6/uL (4.7-6.0); WHITE BLOOD COUNT 9.3 X10^3/uL (3.6-10.0)
[2019-12-23 16:55] LABS: BLOOD UREA NITROGEN 26 mg/dL (7-18); CALCIUM 9.3 mg/dL (8.5-10.1); CARBON DIOXIDE 31.1 mmol/L (21-32); CHLORIDE 103 mmol/L (98-107); COR NA(FOR HYPERGLY) 140 mmol/L (136-145); CREATININE 1.32 mg/dL (0.70-1.30); SODIUM 139 mmol/L (136-145); TROPONIN I < 0.02 ng/mL (0-1.5); eGFR NON BLACK RACES 57 (>60)
[2019-12-23 16:58] LABS: ALANINE AMINOTRANSFERASE 53 Units/L (12-78); ALBUMIN 3.4 g/dL (3.4-5.0); ALKALINE PHOSPHATASE 70 Units/L (46-116); ASPARTATE AMINO TRANSFERASE 29 Units/L (15-37); CKMB % 1.7 % (<4); CREATINE KINASE 60 Units/L (39-308); CREATINE KINASE MB < 1.0 ng/mL (0-4.0); TOTAL PROTEIN 6.6 g/dL (6.4-8.2)
[2019-12-23] MEDS: NS 1000 ML 1,000 ML IV SCH (18:45)
[2019-12-23] MEDS ORDERED: SNACK - Diabetic Appropriate PO SCH (20:00)
[2019-12-23] MEDS: AMARYL TAB 4 MG PO SCH (20:47)
[2019-12-23] MEDS: MESTINON 60MG TAB PO SCH (20:49)
[2019-12-23] MEDS ORDERED: CRESTOR TAB 10 MG PO SCH (21:00)
[2019-12-23] MEDS: NEURONTIN CAP 300 MG PO SCH (21:06)
[2019-12-23] MEDS ORDERED: ROBITUSSIN DM PO PRN (21:11)
[2019-12-23] MEDS ORDERED: MICRO K EXTEN CAP 10 MEQ PO PRN (21:13)
[2019-12-23] MEDS ORDERED: POTASSIUM CHL 60 MEQ/NS 0.45% 500 ML IV PRN (21:13)
[2019-12-23] MEDS ORDERED: POTASSIUM CHLORIDE LIQ 20 MEQ UDC PO PRN (21:13)
[2019-12-23] MEDS ORDERED: KLOR-CON PO PRN (21:13)
[2019-12-23] MEDS ORDERED: K-DUR TAB 20 MEQ PO PRN (21:13)
[2019-12-23] MEDS ORDERED: POTASSIUM CHL 40 MEQ/NS 0.45% 500 ML IV PRN (21:13)
[2019-12-23] MEDS ORDERED: K-RIDER 10 MEQ/NS 100 ML 10 MEQ/100 ML BAG IV PRN (21:13)
[2019-12-23 23:31] LABS: BILIRUBIN,URINE NEGATIVE (NEGATIVE); BLOOD/HEMOGLOBIN,URINE 1+ (NEGATIVE); GLUCOSE, URINE 2+ (NEGATIVE); KETONES,URINE NEGATIVE (NEGATIVE); LEUKOCYTE ESTERASE ,URINE NEGATIVE (NEGATIVE); NITRITES,URINE NEGATIVE (NEGATIVE); PROTEIN,URINE NEGATIVE (NEGATIVE); UROBILINOGEN,URINE NORMAL (NORMAL)
[2019-12-23 23:34] LABS: APPEARANCE,URINE CLEAR (CLEAR); COLOR,URINE PALE YELLOW (YELLOW)
[2019-12-23 23:35] LABS: AMORPHOUS SEDIMENT,UR TRACE /HPF (NEGATIVE); BACTERIA,URINE NEGATIVE /HPF (NEGATIVE); SQUAMOUS EPITHELIAL CELL,UR NEGATIVE /HPF (NEGATIVE)
[2019-12-23 23:51] LABS: CKMB % 0.8 % (<4); CREATINE KINASE 120 Units/L (39-308); TROPONIN I < 0.02 ng/mL (0-1.5)
[2019-12-24] MEDS: NEURONTIN CAP 300 MG PO SCH (05:37)
[2019-12-24 06:43] LABS: BASOPHILS # (AUTO) 0.1 X10^3/uL (0.0-0.1); BASOPHILS % (AUTO) 0.7 % (0.2-1.0); EOSINOPHILS # (AUTO) 0.1 x10^3/uL (0.0-0.2); EOSINOPHILS % (AUTO) 1.8 % (0.9-2.9); HEMATOCRIT 42.6 % (42.0-54.0); HEMOGLOBIN 14.6 g/dL (13.5-18.0); MEAN CORPUSCULAR HEMOGLOBIN 29.9 pg (27.0-34.0); MEAN CORPUSCULAR HGB CONC 34.3 g/dL (33.0-35.0); MEAN CORPUSCULAR VOLUME 87.1 fL (80.0-100.0); MONOCYTES # (AUTO) 0.5 x10^3/uL (0.3-0.8); MONOCYTES % (AUTO) 6.5 % (0.0-13.0); NEUTROPHILS # (AUTO) 3.8 x10^3/uL (2.2-4.8); PLATELET COUNT 165 X10^3/uL (150.0-450.0); RED BLOOD COUNT 4.89 X10^6/uL (4.7-6.0); RED CELL DISTRIBUTION WIDTH 15.2 % (11.6-16.5); WHITE BLOOD COUNT 7.4 X10^3/uL (3.6-10.0)
[2019-12-24 07:02] LABS: PLATELET MORPHOLOGY COMMENT NORMAL (NORMAL)
[2019-12-24 07:06] LABS: ALANINE AMINOTRANSFERASE 54 Units/L (12-78); ALBUMIN 3.2 g/dL (3.4-5.0); ALKALINE PHOSPHATASE 71 Units/L (46-116); ASPARTATE AMINO TRANSFERASE 31 Units/L (15-37); BLOOD UREA NITROGEN 23 mg/dL (7-18); CARBON DIOXIDE 27.7 mmol/L (21-32); CHLORIDE 106 mmol/L (98-107); CHOL/HDL RATIO 3.2 (0.0-5.0); CHOLESTEROL 120 mg/dL (0-200); CKMB % 1.2 % (<4); COR CA(FOR HYPOALB) 9.6 mg/dL (8.5-10.1); COR NA(FOR HYPERGLY) 142 mmol/L (136-145); CREATINE KINASE 86 Units/L (39-308); CREATINE KINASE MB < 1.0 ng/mL (0-4.0); CREATININE 1.16 mg/dL (0.70-1.30); HDL CHOLESTEROL 38 mg/dL (40-60); SODIUM 142 mmol/L (136-145); TOTAL PROTEIN 6.3 g/dL (6.4-8.2); TRIGLYCERIDES 181 mg/dL (0-150); TROPONIN I < 0.02 ng/mL (0-1.5); eGFR NON BLACK RACES > 60 (>60)
[2019-12-24] MEDS: AMARYL TAB 4 MG PO SCH (08:51)
[2019-12-24] MEDS: MESTINON 60MG TAB PO SCH (08:59)
[2019-12-24] MEDS: NS 1000 ML 1,000 ML IV SCH (09:00)
[2019-12-24] MEDS ORDERED: ECOTRIN TAB 325 MG PO SCH (09:00)
[2019-12-24] MEDS ORDERED: NORVASC TAB 10 MG PO SCH (09:00)
[2019-12-24] MEDS ORDERED: ZyrTEC TAB 10 MG PO SCH (09:00)
[2019-12-24] MEDS ORDERED: PREDNISONE TAB 10 MG PO SCH (09:00)
[2019-12-24] MEDS ORDERED: FOLIC ACID 400 MCG PO SCH (09:00)
[2019-12-24] MEDS ORDERED: CYANOCOBALAMIN 5000 MCG SL SCH (09:00)
[2019-12-24] MEDS ORDERED: CELEXA PO SCH (09:00)
[2019-12-24 12:11] VITALS: BP 148/85
--- NOTE | 2020-01-04 19:56 | DR.CARTERS ---
Short Stay Summary - Admission Date Date of Admission: 12/23/19 - Discharge Date Discharge Date: 12/24/19 - Admission Diagnoses (1) Acute left-sided weakness Status: Acute - Hospital Course Hospital Course: IS A 69 YEAR OLD PATIENT OF OURS WHO PRESENTED TO THE ER WITH COMPALINTS OF LEFT SIDED FACIAL DROOPING AND LEFT SIDED WEAKNESS X 3 DAYS. HE REPORTED THAT HEADACHE STARTED THREE DAYS AGO, FOLLOWED BY OTHER SYMPTOMS. 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 HE ALSO HAS A HISTORY OF MYASTHENIA GRAVIS FOR WHICH HE CURRENTLY TAKES PHYSOSTIMIN. HE IS CURRENTLY BEING FOLLOWED BY A NEUROLOGIST. ON ARRIVAL TO THE ER, VITALS WERE 97.5-91-17-94%-129/79. LABS WERE OBTAINED. ABNORMAL LAB VALUES INCLUDED THE FOLLOWING: POTASSIUM 3.2, BUN 26, CREATININE 1.32, GLUCOSE 138. URINALYSIS REVEALED: WBC 3-5, RBC 3-5, BACTERIA NEGATIVE, LEUKOCYTES NEGATIVE. A BRAIN CT WAS OBTAINED AND REVEALED: Mild atrophy and moderate chronic microischemic changes scattered in the deep white matter with no acute abnormality seen. EKG REVEALED: SINUS RHYTHM WITH HR 73. CHEST XRAY REVEALED: Mild cardiomegaly which is more prominent with no acute pulmonary abnormality. HE WAS ADMITTED TO THE HOSPITAL FOR FURTHER EVALUATION AND TREATMENT OF LEFT SIDED WEAKNESS, RULE OUT CVA. WE PLANNED TO OBTAIN SERIAL CARDIAC ENZYMES AND EKGS AND CONTINUE TO MO NITOR. ON THE MORNING FOLLOWING ADMISSION, PATIENT DENIES WEAKNESS AND REPORTS FEELING WELL. HE REPORTS THAT LEFT SIDED WEAKNESS HAS RESOLVED. ON EXAMINATION, HEART IS REGULAR IN RATE AND RHYTHM. BILATERAL LUNGS ARE NOTED WITH DIMINISHED LUNG SOUNDS THROUGHOUT. ABDOMEN IS ROUND, SOFT, AND NON-TENDER WITH NORMAL BOWEL SOUNDS NOTED IN ALL QUADRANTS. HIS VITALS THIS MORNING ARE: 98.4-74-20-94%-148/8 5. LABS WERE OBTAINED. ABNORMAL LAB VALUES INCLUDE THE FOLLOWING: POTASSIUM 3.2, BUN 23, GLUCOSE 117, TOTAL PROTEIN 6.3, ALBUMIN 3.2. TRIGLYCERIDES 181. CARDIAC ENZYMES HAVE BEEN WITHIN NORMAL LIMITS. NO CHANGES NOTED TO EKGS. WE PLANNED FOR DISCHARGE. INSTRUCTIONS FOR MEDICATIONS AND FOLLOW UP WERE DISCUSSED WITH PATIENT AND HIS SPOUSE. HE WAS INSTRUCTED TO CONTINUE HIS CURRENT HOME MEDICATIONS AND TO FOLLOW UP IN THE OFFICE ON 01/04/20 AT 1:30PM. HE WAS DISCHARGED HOME WITH FAMILY IN STABLE CONDITION. - Discharge Medications Discharge Medications: Home Medication List amlodipine 10 mg PO DAILY 12/23/19 [History] aspirin 325 mg PO DAILY 12/23/19 [History] citalopram 40 mg PO DAILY 12/23/19 [History] cyanocobalamin (vitamin B-12) [Vitamin B-12] 5,000 mcg SUBLINGUAL DAILY 12/23/19 [History] folic acid 400 mcg PO DAILY 12/23/19 [History] prednisone 15 mg PO DAILY 12/23/19 [History] pyridostigmine bromide 30 mg PO BID 12/23/19 [History] Prescriptions: - Discharge Plan Disposition: HOME, SELF-CARE Condition: Stable - Follow up/Referrals Follow up/Referrals: Neville Spicer [Primary Care Provider] - 01/04/20 1:30 pm (Patient is seen by IAN Lemus) - Instructions Instructions: Type 2 Diabetes Mellitus, Diagnosis, Adult, Preventing Type 2 Diabetes Mellitus, Type 2 Diabetes Mellitus, Self Care, Adult, [id number], Transient Ischemic Attack, [id number], Hypertension, [id number], Myasthenia Gravis Additional Instructions: DIET TOLERATED. ACTIVITY TOLERATED Forms: Excuse From Work, Patient Portal
== END 2019-12-24 14:05 | disposition home or self-care (01) ==
LOC: MED/SURG 14:18 → ER 14:18 → MED/SURG 18:12
PROVIDERS: ADMIT Internal Medicine; ATTEND Internal Medicine
DX: R29.810 Facial weakness; R51 Headache; R53.1 Weakness; G70.00 Myasthenia gravis without (acute) exacerbation; I51.7 Cardiomegaly; Z79.899 Other long term (current) drug therapy
CPT/HCPCS: 36415; 70450; 71010; 71045; 80053; 80061; 81001; 82550; 82553; 83735; 84484; 85025; 93005; 94760; 96365; 99284; A4222; G0378; J7030; J7512

== ENCOUNTER 2021-09-27 14:43 | Observation (INO) ==
[2021-09-27] MEDS ORDERED: TUSSIONEX PENNKINETIC SUSP PO PRN (18:17)
[2021-09-27] MEDS ORDERED: NS 1/2 1,000 ML IV 1,000 ML IV ONE (18:57)
[2021-09-27] MEDS: NS 1/2 1,000 ML IV 1,000 ML IV SCH (19:06)
[2021-09-27] MEDS: ROBITUSSIN DM PO SCH ×2 (19:06→20:22)
[2021-09-27 19:07] LABS: BASOPHILS % (AUTO) 0.4 % (0.2-1.0); EOSINOPHILS # (AUTO) 0.1 x10^3/uL (0.0-0.2); EOSINOPHILS % (AUTO) 1.1 % (0.9-2.9); HEMATOCRIT 40.4 % (42.0-54.0); HEMOGLOBIN 13.6 g/dL (13.5-18.0); LYMPHOCYTES # (AUTO) 1.6 X10^3/uL (1.3-2.9); LYMPHOCYTES % (AUTO) 23.9 % (21.0-51.0); MEAN CORPUSCULAR HGB CONC 33.6 g/dL (33.0-35.0); MEAN CORPUSCULAR VOLUME 86.2 fL (80.0-100.0); MEAN PLATELET VOLUME 8.1 fL (7.4-11.0); MONOCYTES # (AUTO) 0.7 x10^3/uL (0.3-0.8); MONOCYTES % (AUTO) 11.2 % (0.0-13.0); NEUTROPHILS # (AUTO) 4.2 x10^3/uL (2.2-4.8); NEUTROPHILS % (AUTO) 63.4 % (42.0-75.0); PLATELET COUNT 181 X10^3/uL (150.0-450.0); RED BLOOD COUNT 4.69 X10^6/uL (4.7-6.0); RED CELL DISTRIBUTION WIDTH 14.1 % (11.6-16.5); WHITE BLOOD COUNT 6.7 X10^3/uL (3.6-10.0)
[2021-09-27 19:14] LABS: ALANINE AMINOTRANSFERASE 37 Units/L (12-78); ALKALINE PHOSPHATASE 59 Units/L (46-116); ASPARTATE AMINO TRANSFERASE 38 Units/L (15-37); BLOOD UREA NITROGEN 18 mg/dL (7-18); CALCIUM 8.8 mg/dL (8.5-10.1); CARBON DIOXIDE 31.3 mmol/L (21-32); CHLORIDE 97 mmol/L (98-107); COR CA(FOR HYPOALB) 9.6 mg/dL (8.5-10.1); COR NA(FOR HYPERGLY) 137 mmol/L (136-145); CREATININE 1.33 mg/dL (0.70-1.30); SODIUM 134 mmol/L (136-145); TOTAL PROTEIN 6.6 g/dL (6.4-8.2); eGFR NON BLACK RACES 56 (>60)
[2021-09-27] MEDS: SNACK - Diabetic Appropriate PO SCH (20:20)
[2021-09-27] MEDS: DUONEB 0.5 MG/3 MG (3 mL) NEB SCH (20:23)
[2021-09-27] MEDS: PULMICORT NEB TX 0.5 MG NEB SCH (20:23)
[2021-09-27] MEDS: ZOSYN VIAL 4.5 GRAMS 4.5 G in NS 100 ML IV + SPIKE MINIBAG* 100 ML IV SCH (21:17)
[2021-09-27 22:00] VITALS: BMI 31.8
[2021-09-28] MEDS: DUONEB 0.5 MG/3 MG (3 mL) NEB SCH ×6 (00:45→20:14)
[2021-09-28 06:09] LABS: BASOPHILS % (AUTO) 0.4 % (0.2-1.0); EOSINOPHILS # (AUTO) 0.1 x10^3/uL (0.0-0.2); EOSINOPHILS % (AUTO) 2.4 % (0.9-2.9); HEMATOCRIT 39.3 % (42.0-54.0); HEMOGLOBIN 13.4 g/dL (13.5-18.0); LYMPHOCYTES # (AUTO) 1.5 X10^3/uL (1.3-2.9); LYMPHOCYTES % (AUTO) 29.3 % (21.0-51.0); MEAN CORPUSCULAR HEMOGLOBIN 29.4 pg (27.0-34.0); MEAN CORPUSCULAR HGB CONC 34.2 g/dL (33.0-35.0); MEAN PLATELET VOLUME 8.3 fL (7.4-11.0); MONOCYTES # (AUTO) 0.7 x10^3/uL (0.3-0.8); MONOCYTES % (AUTO) 13.7 % (0.0-13.0); NEUTROPHILS # (AUTO) 2.8 x10^3/uL (2.2-4.8); NEUTROPHILS % (AUTO) 54.2 % (42.0-75.0); PLATELET COUNT 166 X10^3/uL (150.0-450.0); RED BLOOD COUNT 4.57 X10^6/uL (4.7-6.0); RED CELL DISTRIBUTION WIDTH 13.9 % (11.6-16.5); WHITE BLOOD COUNT 5.2 X10^3/uL (3.6-10.0)
[2021-09-28] MEDS: ZOSYN VIAL 4.5 GRAMS 4.5 G in NS 100 ML IV + SPIKE MINIBAG* 100 ML IV SCH ×3 (06:09→21:13)
[2021-09-28 06:22] LABS: ALANINE AMINOTRANSFERASE 41 Units/L (12-78); ALBUMIN 2.9 g/dL (3.4-5.0); ALKALINE PHOSPHATASE 56 Units/L (46-116); ASPARTATE AMINO TRANSFERASE 42 Units/L (15-37); BLOOD UREA NITROGEN 16 mg/dL (7-18); CALCIUM 8.8 mg/dL (8.5-10.1); CARBON DIOXIDE 28.2 mmol/L (21-32); CHLORIDE 99 mmol/L (98-107); COR CA(FOR HYPOALB) 9.7 mg/dL (8.5-10.1); COR NA(FOR HYPERGLY) 137 mmol/L (136-145); CREATININE 1.18 mg/dL (0.70-1.30); SODIUM 135 mmol/L (136-145); TOTAL PROTEIN 6.4 g/dL (6.4-8.2); eGFR NON BLACK RACES > 60 (>60)
[2021-09-28] MEDS ORDERED: POTASSIUM CHL 40 MEQ/NS 0.45% 500 ML IV PRN (06:30)
[2021-09-28] MEDS ORDERED: K-RIDER 10 MEQ/NS 100 ML 10 MEQ/100 ML BAG IV PRN (06:30)
[2021-09-28] MEDS ORDERED: POTASSIUM CHLORIDE LIQ 20 MEQ UDC PO PRN (06:30)
[2021-09-28] MEDS ORDERED: KLOR-CON PO PRN (06:30)
[2021-09-28] MEDS ORDERED: POTASSIUM CHL 60 MEQ/NS 0.45% 500 ML IV PRN (06:30)
[2021-09-28] MEDS ORDERED: MAGNESIUM SULFATE 1 GRAM/100 mL PREMIX 1 G/100 ML BAG IV PRN (06:30)
[2021-09-28] MEDS ORDERED: MICRO K EXTEN CAP 10 MEQ PO PRN (06:30)
--- NOTE | 2021-09-28 08:33 | RAD ---
HISTORYPNEUMONIA PROSTATE CANCER, HTN,DM, CVASTUDYCHEST, 1 [id number]/2021FINDINGSThe trachea is midline. There is borderline heart size. There is no evidence of focal pneumonia pneumothorax or pleural effusions. Osseus structures are unremarkableIMPRESSIONNo acute cardiopulmonary findings .Electronically signed by: Tiffanie Lewis (Sep 28, 2021 08:32:25)
[2021-09-28] MEDS: PULMICORT NEB TX 0.5 MG NEB SCH ×2 (08:51→20:14)
[2021-09-28] MEDS: NS 1/2 1,000 ML IV 1,000 ML IV SCH ×2 (09:21→22:23)
[2021-09-28] MEDS: ROBITUSSIN DM PO SCH ×4 (09:56→20:26)
[2021-09-28] MEDS: NORVASC TAB 10 MG PO SCH (09:57)
[2021-09-28] MEDS: AMARYL TAB 4 MG PO SCH ×2 (09:58→20:25)
[2021-09-28] MEDS: CELEXA PO SCH (09:58)
[2021-09-28] MEDS: FOLIC ACID TAB 1 MG PO SCH (09:59)
[2021-09-28] MEDS: K-DUR TAB 20 MEQ PO PRN (09:59)
[2021-09-28] MEDS: ZyrTEC TAB 10 MG PO SCH (10:00)
[2021-09-28] MEDS: PREDNISONE TAB 10 MG PO SCH (10:02)
[2021-09-28] MEDS: ECOTRIN TAB 325 MG PO SCH (10:02)
--- NOTE | 2021-09-28 10:04 | DR.H&P ---
H&P - History & Physical for Day of: H&P Date: 09/27/21 - Chief Complaint Chief Complaint: COUGH, SHORTNESS OF BREATH, FEVER - History of Present Illness History of Present Illness: IS A 71 YEAR OLD PATIENT OF OURS. HE PRESENTED TO THE OFFICE ON 09/27 WITH REPORTS OF COUGH, SHORTNESS OF BREATH, AND FEVER. HIS SYMPTOMS BEGAN ON 09/21/21 AND HAVE PROGRESSIVELY GOTTEN WORSE. COUGH HAS BEEN NON-PRODUCTIVE. HE STARTED TAKING LEVAQUIN 500MG PO DAILY, ROBITUSSIN AC, AND DUONEB BREATHING TREATMENTS ON 09/25 WITHOUT IMPROVEMENT IN SYMPTOMS DESPITE COMPLIANCE WITH MEDICATIONS. HIS PMH INCLUDES: TIA, HTN, SLEEP APNEA, KIDNEY STONES, MYASTHENIA GRAVIS, ARTHRITIS, DM II, PROSTATE CANCER, ANXIETY/DEPRESSION, [place], CATARACT REMOVAL. ON ARRIVAL TO THE HOSPITAL, VITALS WERE 99.4-101-24-92%-140/78. LABS WERE OBTAINED. ABNORMAL LAB VALUES INCLUDE THE FOLLOWING: RBC 4.69, HCT 40.4, SODIUM 134, CHLORIDE 97, CREATININE 1.33, GLUCOSE 206, AST 38, ALBUMIN 3.0. BLOOD CULTURES WERE SET UP. HE WAS STARTED ON 1/2NS AT 75 ML/HR, ZOSYN 4.5G IV TID, HUMULIN R SLIDING SCALE, ROBITUSSIN DM 10ML PO QID, TUSSIONEX 5ML PO Q12H PRN, DUONEBS Q4H, PULMICORT NEBS BID, LOVENOX 40MG SC DAILY, THE POTASSIUM AND MAGNESIUM PROTOCOLS, AND HIS HOME MEDICATIONS WERE RESUMED. HE WAS PLACED ON OXYGEN VIA NASAL CANNULA AT 2 LITERS/MINUTE. OTHERWISE, WE PLAN TO FOLLOW UP WITH AM LABS AND CHEST XRAY AND CONTINUE TO MONITOR. TIME SPENT ON CLINICAL ASSESSMENT, REVIEWING LABS AND IMAGING, DECISION MAKING, AND DOCUMENTATION GREATER THAN 75 MINUTES. - Past Medical History Past Medical History: Arthritis, Diabetes, Hypertension, Kidney Stones, Sleep Apnea Additional Medical History: BPH - Past Surgical History Surgical History: Other - Family History Family Medical History: [place], Hypertension - Social History Does patient currently use any type of tobacco product: No Have you used tobacco products in the last 12 months: No Type of Tobacco Use: None Does any household member use tobacco: No Alcohol Use: None Drug Use: None - Medications Home Medications: Iodinated Contrast Media [Iodinated Contrast- Oral and IV Dye] Allergy (Verified 12/23/19 14:22) Iodine and Iodide Containing Produc Allergy (Verified 12/23/19 14:22) Sulfa (Sulfonamide Antibiotics) [SULFA] Allergy (Verified 12/23/19 14:22) - Review of Systems Constitutional: Fever, Weakness Eyes: No Symptoms Reported ENT: No Symptoms Reported Respiratory: See HPI, Cough, Shortness of Breath Cardiovascular: No Symptoms Reported Gastrointestinal: No Symptoms Reported Genitourinary: No Symptoms Reported Musculoskeletal: No Symptoms Reported Skin: No Symptoms Reported Neurological: Weakness - Physical Exam Vital Signs: Temperature 98.1 F Pulse Rate [Bilateral Radial] 79 Pulse Rate 70 Respiratory Rate 24 Blood Pressure [Right Arm] 126/83 Blood Pressure [Left Arm] 140/78 Blood Pressure 150/86 O2 Sat by Pulse Oximetry 94 Oriented: Normal Eyes: Normal Ear: Normal Nose: Normal Throat: Normal Respiratory: Diminished Throughout Cardiovascular: Normal : Normal Auscultation: Bowel Sounds: Normal Palpation: Normal Tenderness: Normal Skin: Normal Musculoskeletal: Normal Psychiatric: Normal Mood Description: Calm Affect: Normal Speech Pattern: Clear - Assessment/Plan (1) Bronchopneumonia Status: Acute Plan: ADMIT, SUPPLEMENTAL OXYGEN, 1/2NS AT 75 ML/HR, ZOSYN 4.5G IV TID, HUMULIN R SLIDING SCALE, ROBITUSSIN DM 10ML PO QID, TUSSIONEX 5ML PO Q12H PRN, DUONEBS Q4H, PULMICORT NEBS BID, LOVENOX 40MG SC DAILY, THE POTASSIUM AND MAGNESIUM PROTOCOLS, AND HIS HOME MEDICATIONS WERE RESUMED - Allergies Allergies/Adverse Reactions: Allergies Allergy/AdvReac Type Severity Reaction Status Date / Time Iodinated Contrast Media Allergy Verified 12/23/19 14:22 [Iodinated Contrast- Oral and IV Dye] Iodine and Iodide Containing Allergy Verified 12/23/19 14:22 Produc Sulfa (Sulfonamide Allergy Verified 12/23/19 14:22 Antibiotics) [SULFA]
[2021-09-28] MEDS: PYRIDOSTIGMINE BROMIDE 60 MG PO SCH ×3 (10:05→21:13)
[2021-09-28] MEDS: NEURONTIN CAP 300 MG PO SCH ×3 (10:11→21:13)
[2021-09-28] MEDS: VITAMIN B-12 PO SCH (10:12)
[2021-09-28] MEDS: LOVENOX INJ 40 MG SYR SC SCH (11:00)
[2021-09-28] MEDS: NovoLIN R (or HumuLIN R) SUBCUT PRN ×3 (12:40→20:41)
[2021-09-28] MEDS ORDERED: SNACK - Diabetic Appropriate PO SCH (20:00)
[2021-09-28] MEDS: SNACK - Diabetic Appropriate PO SCH (20:25)
[2021-09-28] MEDS ORDERED: TYLENOL 325 MG TAB PO PRN (21:37)
[2021-09-29] MEDS: DUONEB 0.5 MG/3 MG (3 mL) NEB SCH ×6 (00:30→20:40)
[2021-09-29] MEDS ORDERED: NS 1/2 1,000 ML IV 1,000 ML IV ONE ×2 (05:03→23:15)
[2021-09-29] MEDS: NS 1/2 1,000 ML IV 1,000 ML IV SCH ×3 (05:14→23:18)
[2021-09-29] MEDS: NEURONTIN CAP 300 MG PO SCH ×3 (05:14→21:14)
[2021-09-29] MEDS: ZOSYN VIAL 4.5 GRAMS 4.5 G in NS 100 ML IV + SPIKE MINIBAG* 100 ML IV SCH ×3 (05:15→21:14)
[2021-09-29] MEDS: PYRIDOSTIGMINE BROMIDE 60 MG PO SCH ×3 (05:15→21:14)
[2021-09-29 06:14] LABS: BASOPHILS % (AUTO) 0.4 % (0.2-1.0); EOSINOPHILS # (AUTO) 0.1 x10^3/uL (0.0-0.2); EOSINOPHILS % (AUTO) 1.5 % (0.9-2.9); HEMATOCRIT 37.8 % (42.0-54.0); HEMOGLOBIN 12.7 g/dL (13.5-18.0); LYMPHOCYTES # (AUTO) 2.2 X10^3/uL (1.3-2.9); LYMPHOCYTES % (AUTO) 27.7 % (21.0-51.0); MEAN CORPUSCULAR HGB CONC 33.6 g/dL (33.0-35.0); MEAN CORPUSCULAR VOLUME 86.3 fL (80.0-100.0); MEAN PLATELET VOLUME 8.2 fL (7.4-11.0); MONOCYTES # (AUTO) 0.8 x10^3/uL (0.3-0.8); MONOCYTES % (AUTO) 10.4 % (0.0-13.0); NEUTROPHILS # (AUTO) 4.7 x10^3/uL (2.2-4.8); PLATELET COUNT 179 X10^3/uL (150.0-450.0); RED BLOOD COUNT 4.37 X10^6/uL (4.7-6.0); RED CELL DISTRIBUTION WIDTH 14.1 % (11.6-16.5); WHITE BLOOD COUNT 7.8 X10^3/uL (3.6-10.0)
[2021-09-29 06:24] LABS: ALANINE AMINOTRANSFERASE 38 Units/L (12-78); ALBUMIN 2.6 g/dL (3.4-5.0); ALKALINE PHOSPHATASE 53 Units/L (46-116); ASPARTATE AMINO TRANSFERASE 32 Units/L (15-37); BLOOD UREA NITROGEN 16 mg/dL (7-18); CALCIUM 8.8 mg/dL (8.5-10.1); CARBON DIOXIDE 28.7 mmol/L (21-32); CHLORIDE 104 mmol/L (98-107); COR CA(FOR HYPOALB) 9.9 mg/dL (8.5-10.1); CREATININE 1.23 mg/dL (0.70-1.30); SODIUM 140 mmol/L (136-145); eGFR NON BLACK RACES > 60 (>60)
[2021-09-29] MEDS: PULMICORT NEB TX 0.5 MG NEB SCH ×2 (09:04→20:40)
[2021-09-29] MEDS ORDERED: GLUCOPHAGE ONE ×2 (09:15→16:57)
[2021-09-29] MEDS: CELEXA PO SCH (09:31)
[2021-09-29] MEDS: ECOTRIN TAB 325 MG PO SCH (09:31)
[2021-09-29] MEDS: AMARYL TAB 4 MG PO SCH ×2 (09:31→21:13)
[2021-09-29] MEDS: FOLIC ACID TAB 1 MG PO SCH (09:31)
[2021-09-29] MEDS: NORVASC TAB 10 MG PO SCH (09:32)
[2021-09-29] MEDS: ROBITUSSIN DM PO SCH ×4 (09:32→21:14)
[2021-09-29] MEDS: PREDNISONE TAB 10 MG PO SCH (09:32)
[2021-09-29] MEDS: LOVENOX INJ 40 MG SYR SC SCH (09:32)
[2021-09-29] MEDS: ZyrTEC TAB 10 MG PO SCH (09:33)
[2021-09-29] MEDS: VITAMIN B-12 PO SCH (09:33)
[2021-09-29] MEDS: K-DUR TAB 20 MEQ PO PRN (09:34)
--- NOTE | 2021-09-29 10:13 | PCM.PROG ---
Progress Note - Progress Note for Day of Date of Exam: 09/29/21 - Subjective Subjective: WAS ADMITTED FOR TREATMENT OF BRONCHOPNEUMONIA. TODAY, HE IS ALERT AND ORIENTED, LYING IN BED ON MORNING ROUNDS. HE CONTINUES WITH COMPLAINTS OF COUGH AND SHORTNESS OF BREATH. COUGH HAS BEEN PRODUCTIVE THIS MORNING. HE DID HAVE TEMP OF 101.4 THROUGHOUT THE NIGHT. ON EXAMINATION, HEART IS REGULAR IN RATE AND RHYTHM. BILATERAL LUNGS NOTED WITH DIMINISHED LUNG SOUNDS THROUGHOUT. ABDOMEN ROUND, SOFT, AND NON-TENDER WITH NORMAL BOWEL SOUNDS NOTED IN ALL QUADRNATS. HIS VITALS THIS MORNING WERE: 98.3-84-20-98%-142/67. LABS WERE OBTAINED. ABNORMAL LAB VALUES INCLUDE THE FOLLOWING: RBC 4.37, HGB 12.7, HCT 37.8, POTASSIUM 3.1, TOTAL PROTEIN 6.0, ALBUMIN 2.6. BLOOD AND SPUTUM CULTURES ARE PENDING. HE IS CURRENTLY RECEIVING 1/2NS AT 75 ML/HR, ZOSYN 4.5G IV TID, HUMULIN R SLIDING SCALE, ROBITUSSIN DM 10ML PO QID, TUSSIONEX 5ML PO Q12H PRN, DUONEBS Q4H, PULMICORT NEBS BID, LOVENOX 40MG SC DAILY, THE POTASSIUM AND MAGNESIUM PROTOCOLS, AND HIS HOME MEDICATIONS WERE RESUMED. WE WILL CONTINUE WITH CURRENT PLAN OF CARE TODAY. OTHERWISE, WE PLAN TO FOLLOW UP WITH AM LABS AND CONTINUE TO MONITOR. TIME SPENT ON CLINICAL ASSESSMENT, REVIEWING LABS AND IMAGING, DECISION MAKING, AND DOCUMENTATION GREATER THAN 45 MINUTES. - Past Medical Family Social History Past Med/Fam/Surg Hx: No changes since H&P Allergies: Allergies Iodinated Contrast Media [Iodinated Contrast- Oral and IV Dye] Allergy (Verified 12/23/19 14:22) Iodine and Iodide Containing Produc Allergy (Verified 12/23/19 14:22) Sulfa (Sulfonamide Antibiotics) [SULFA] Allergy (Verified 12/23/19 14:22) - Review of Systems ROS: No change since H&P - Vital Signs and I&O's Vital Signs: Temperature 98.3 F Pulse Rate [Bilateral Radial] 68 Pulse Rate 84 Respiratory Rate 20 Blood Pressure [Right Arm] 142/67 Blood Pressure [Left Arm] 140/78 Blood Pressure 150/86 O2 Sat by Pulse Oximetry 89 Intake and Output: Intake & Output 11/1609/27/21 09/28/21 09/29/21 11:59 11:59 11:59 11:59 Intake Total 1909 / 2666 Balance 1909 - Physical Exam Oriented: Normal Eyes: Normal Ear: Normal Nose: Normal Throat: Normal Respiratory: Generalized, Diminished Cardiovascular: Normal : Normal Auscultation: Bowel Sounds: Normal Palpation: Normal Tenderness: Normal Skin: Normal Musculoskeletal: Normal Psychiatric: Normal Mood Description: Calm Affect: Normal Speech Pattern: Clear, Appropriate - Laboratory and Diagnostics Result Diagrams: 09/29/21 05:35 09/29/21 05:35 Labs: 09/28/21 10:25 Sputum - Expectorated Sputum Sputum Culture - Preliminary 09/28/21 10:25 Sputum - Expectorated Sputum - Final Laboratory WBC 7.8 X10^3/uL (3.6-10.0) 09/29/21 05:35 RBC 4.37 X10^6/uL (4.7-6.0) L 09/29/21 05:35 Hgb 12.7 g/dL (13.5-18.0) L 09/29/21 05:35 Hct 37.8 % (42.0-54.0) L 09/29/21 05:35 MCV 86.3 fL (80.0-100.0) 09/29/21 05:35 MCH 29.0 pg (27.0-34.0) 09/29/21 05:35 MCHC 33.6 g/dL (33.0-35.0) 09/29/21 05:35 RDW 14.1 % (11.6-16.5) 09/29/21 05:35 Plt Count 179 X10^3/uL (150.0-450.0) 09/29/21 05:35 MPV 8.2 fL (7.4-11.0) 09/29/21 05:35 Neut % (Auto) 60.0 % (42.0-75.0) 09/29/21 05:35 Lymph % (Auto) 27.7 % (21.0-51.0) 09/29/21 05:35 [place] % (Auto) 10.4 % (0.0-13.0) 09/29/21 05:35 Eos % (Auto) 1.5 % (0.9-2.9) 09/29/21 05:35 Baso % (Auto) 0.4 % (0.2-1.0) 09/29/21 05:35 Neut # (Auto) 4.7 x10^3/uL (2.2-4.8) 09/29/21 05:35 Lymph # (Auto) 2.2 X10^3/uL (1.3-2.9) 09/29/21 05:35 [place] # (Auto) 0.8 x10^3/uL (0.3-0.8) 09/29/21 05:35 Eos # (Auto) 0.1 x10^3/uL (0.0-0.2) 09/29/21 05:35 Baso # (Auto) 0.0 X10^3/uL (0.0-0.1) 09/29/21 05:35 Absolute Nucleated RBC 0.0 /100WBC 09/29/21 05:35 Sodium 140 mmol/L (136-145) 09/29/21 05:35 Corrected Sodium TNP 09/29/21 05:35 Potassium 3.1 mmol/L (3.5-5.1) L 09/29/21 05:35 Chloride 104 mmol/L (98-107) 09/29/21 05:35 Carbon Dioxide 28.7 mmol/L (21-32) 09/29/21 05:35 BUN 16 mg/dL (7-18) 09/29/21 05:35 Creatinine 1.23 mg/dL (0.70-1.30) 09/29/21 05:35 Est GFR (MDRD) Af Amer > 60 (>60) 09/29/21 05:35 Est GFR (MDRD) Non-Af > 60 (>60) 09/29/21 05:35 Glucose 76 mg/dL (65-99) 09/29/21 05:35 POC Glucose (mg/dL) 82 mg/dL (65-99) 09/29/21 05:29 Calcium 8.8 mg/dL (8.5-10.1) 09/29/21 05:35 Corrected Calcium 9.9 mg/dL (8.5-10.1) 09/29/21 05:35 Magnesium 2.4 mg/dL (1.7-2.9) 09/29/21 05:35 Total Bilirubin 0.50 mg/dL (0.2-1.0) 09/29/21 05:35 AST 32 Units/L (15-37) 09/29/21 05:35 ALT 38 Units/L (12-78) 09/29/21 05:35 Alkaline Phosphatase 53 Units/L (46-116) 09/29/21 05:35 Total Protein 6.0 g/dL (6.4-8.2) L 09/29/21 05:35 Albumin 2.6 g/dL (3.4-5.0) L 09/29/21 05:35 Globulin 3.4 g/dL (2.5-4.5) 09/29/21 05:35 Albumin/Globulin Ratio 0.8 Ratio (1.1-2.1) L 09/29/21 05:35 SARS CoV-2 RNA Rapid CLAU Negative (NEGATIVE) 09/27/21 15:56 - Plan (1) Bronchopneumonia Status: Acute Plan: SUPPLEMENTAL OXYGEN, 1/2NS AT 75 ML/HR, ZOSYN 4.5G IV TID, HUMULIN R SLIDING SCALE, ROBITUSSIN DM 10ML PO QID, TUSSIONEX 5ML PO Q12H PRN, DUONEBS Q4H, PULMICORT NEBS BID, LOVENOX 40MG SC DAILY, THE POTASSIUM AND MAGNESIUM PROTOCOLS, AND HIS HOME MEDICATIONS WERE RESUMED
[2021-09-29] MEDS: GLUCOPHAGE PO SCH (17:06)
[2021-09-29] MEDS: SNACK - Diabetic Appropriate PO SCH (21:13)
[2021-09-30] MEDS: DUONEB 0.5 MG/3 MG (3 mL) NEB SCH ×3 (00:19→08:55)
[2021-09-30] MEDS: NS 1/2 1,000 ML IV 1,000 ML IV SCH (02:24)
[2021-09-30] MEDS: NEURONTIN CAP 300 MG PO SCH (05:35)
[2021-09-30] MEDS: ZOSYN VIAL 4.5 GRAMS 4.5 G in NS 100 ML IV + SPIKE MINIBAG* 100 ML IV SCH (05:35)
[2021-09-30] MEDS: PYRIDOSTIGMINE BROMIDE 60 MG PO SCH (05:35)
[2021-09-30] MEDS: GLUCOPHAGE PO SCH (06:04)
--- NOTE | 2021-09-30 06:17 | RAD ---
HISTORYSOB HX: TIA, HTN, DM, PROSTATE CANCERSTUDYCHEST, 1 [id number]/2021FINDINGSThe trachea is midline. Stable mild cardiomegaly the lungs are well expanded and clear. Osseus structures are unremarkable.IMPRESSIONNo acute cardiopulmonary findings .Electronically signed by: Tiffanie Lewis (Sep 30, 2021 06:15:34)
[2021-09-30 06:38] LABS: BASOPHILS % (AUTO) 0.3 % (0.2-1.0); EOSINOPHILS # (AUTO) 0.1 x10^3/uL (0.0-0.2); EOSINOPHILS % (AUTO) 2.3 % (0.9-2.9); HEMATOCRIT 35.9 % (42.0-54.0); HEMOGLOBIN 12.2 g/dL (13.5-18.0); LYMPHOCYTES # (AUTO) 2.4 X10^3/uL (1.3-2.9); LYMPHOCYTES % (AUTO) 37.5 % (21.0-51.0); MEAN CORPUSCULAR HEMOGLOBIN 29.3 pg (27.0-34.0); MEAN CORPUSCULAR HGB CONC 33.9 g/dL (33.0-35.0); MEAN CORPUSCULAR VOLUME 86.3 fL (80.0-100.0); MEAN PLATELET VOLUME 8.2 fL (7.4-11.0); MONOCYTES # (AUTO) 0.5 x10^3/uL (0.3-0.8); MONOCYTES % (AUTO) 7.9 % (0.0-13.0); NEUTROPHILS # (AUTO) 3.3 x10^3/uL (2.2-4.8); PLATELET COUNT 187 X10^3/uL (150.0-450.0); RED BLOOD COUNT 4.16 X10^6/uL (4.7-6.0); RED CELL DISTRIBUTION WIDTH 14.2 % (11.6-16.5); WHITE BLOOD COUNT 6.3 X10^3/uL (3.6-10.0)
[2021-09-30 06:54] LABS: ALANINE AMINOTRANSFERASE 38 Units/L (12-78); ALBUMIN 2.5 g/dL (3.4-5.0); ALKALINE PHOSPHATASE 56 Units/L (46-116); ASPARTATE AMINO TRANSFERASE 31 Units/L (15-37); BLOOD UREA NITROGEN 11 mg/dL (7-18); CALCIUM 8.2 mg/dL (8.5-10.1); CARBON DIOXIDE 26.7 mmol/L (21-32); CHLORIDE 105 mmol/L (98-107); COR CA(FOR HYPOALB) 9.4 mg/dL (8.5-10.1); COR NA(FOR HYPERGLY) 140 mmol/L (136-145); CREATININE 1.11 mg/dL (0.70-1.30); SODIUM 140 mmol/L (136-145); TOTAL PROTEIN 5.8 g/dL (6.4-8.2); eGFR NON BLACK RACES > 60 (>60)
[2021-09-30] MEDS: CELEXA PO SCH (08:47)
[2021-09-30] MEDS: NORVASC TAB 10 MG PO SCH (08:49)
[2021-09-30] MEDS: PREDNISONE TAB 10 MG PO SCH (08:50)
[2021-09-30] MEDS: FOLIC ACID TAB 1 MG PO SCH (08:51)
[2021-09-30] MEDS: ROBITUSSIN DM PO SCH (08:51)
[2021-09-30] MEDS: ECOTRIN TAB 325 MG PO SCH (08:51)
[2021-09-30] MEDS: VITAMIN B-12 PO SCH (08:52)
[2021-09-30] MEDS: AMARYL TAB 4 MG PO SCH (08:52)
[2021-09-30] MEDS: ZyrTEC TAB 10 MG PO SCH (08:52)
[2021-09-30] MEDS: PULMICORT NEB TX 0.5 MG NEB SCH (08:55)
[2021-09-30] MEDS: LOVENOX INJ 40 MG SYR SC SCH (09:22)
[2021-09-30] MEDS: K-DUR TAB 20 MEQ PO PRN (09:30)
[2021-09-30 09:46] VITALS: BP 145/70
[2021-09-30] MEDS ORDERED: VSL#3 PO SCH (22:00)
== END 2021-09-30 10:35 | disposition home or self-care (01) ==
LOC: MED/SURG
PROVIDERS: ADMIT Internal Medicine; ATTEND Internal Medicine
DX: J18.0 Bronchopneumonia, unspecified organism; Z20.822 Contact with and (suspected) exposure to COVID-19; R06.02 Shortness of breath; I10 Essential (primary) hypertension; A40.1 Sepsis due to streptococcus, group B; Z66 Do not resuscitate; E11.65 Type 2 diabetes mellitus with hyperglycemia

== ENCOUNTER 2021-11-23 14:34 | Inpatient (IN) ==
[2021-11-23 17:54] LABS: BASOPHILS % (AUTO) 0.3 % (0.2-1.0); EOSINOPHILS % (AUTO) 0.2 % (0.9-2.9); HEMATOCRIT 43.6 % (42.0-54.0); LYMPHOCYTES # (AUTO) 0.8 X10^3/uL (1.3-2.9); LYMPHOCYTES % (AUTO) 6.7 % (21.0-51.0); MEAN CORPUSCULAR HEMOGLOBIN 28.3 pg (27.0-34.0); MEAN CORPUSCULAR HGB CONC 34.3 g/dL (33.0-35.0); MEAN CORPUSCULAR VOLUME 82.4 fL (80.0-100.0); MEAN PLATELET VOLUME 8.5 fL (7.4-11.0); MONOCYTES # (AUTO) 0.6 x10^3/uL (0.3-0.8); MONOCYTES % (AUTO) 4.8 % (0.0-13.0); NEUTROPHILS # (AUTO) 10.7 x10^3/uL (2.2-4.8); RED BLOOD COUNT 5.29 X10^6/uL (4.7-6.0); RED CELL DISTRIBUTION WIDTH 14.5 % (11.6-16.5); WHITE BLOOD COUNT 12.2 X10^3/uL (3.6-10.0)
[2021-11-23] MEDS ORDERED: PHARMACY CONSULT - IVERMECTIN XX SCH (18:00)
[2021-11-23] MEDS: PULMICORT NEB TX 0.5 MG NEB SCH ×2 (18:07→20:29)
[2021-11-23] MEDS: XOPENEX 1.25 MG/3 ML NEBULE NEB SCH ×2 (18:07→20:29)
[2021-11-23] MEDS ORDERED: NS 1/2 1,000 ML IV 1,000 ML IV ONE (18:13)
[2021-11-23 18:14] LABS: ALBUMIN 3.1 g/dL (3.4-5.0); CALCIUM 9.8 mg/dL (8.5-10.1); CARBON DIOXIDE 27.5 mmol/L (21-32); COR CA(FOR HYPOALB) 10.5 mg/dL (8.5-10.1); CREATININE 1.56 mg/dL (0.70-1.30)
[2021-11-23] MEDS: NS 1/2 1,000 ML IV 1,000 ML IV SCH (18:21)
[2021-11-23] MEDS: SOLU-Medrol 40 MG VIAL IVP SCH ×2 (18:22→21:11)
[2021-11-23] MEDS: VSL#3 PO SCH (18:22)
[2021-11-23 18:40] LABS: ABG BASE EXCESS 4.3 mmol/L (-2.0-2.0); ABG HCO3 26.9 mmol/L (22-26)
[2021-11-23 18:41] LABS: ABG ALLEN TEST POS
[2021-11-23] MEDS: LEVAQUIN PREMIX IV 500 MG 500 MG/100 ML BAG IV SCH (18:48)
[2021-11-23] MEDS ORDERED: REMDESIVIR 200 MG in NS 250 ML IV 250 ML IV ONE (20:00)
[2021-11-23] MEDS: PROTONIX INJ 40 MG VIAL IVP SCH (20:51)
[2021-11-23] MEDS ORDERED: IVERMECTIN PO SCH (21:00)
[2021-11-23] MEDS: LUVOX PO SCH (21:01)
[2021-11-23] MEDS: ROBITUSSIN DM PO SCH (21:02)
[2021-11-23] MEDS: NovoLIN R (or HumuLIN R) SUBCUT PRN (21:10)
[2021-11-23] MEDS: SNACK - Diabetic Appropriate PO SCH (21:11)
[2021-11-23] MEDS: TESSALON PERLES PO SCH (21:11)
[2021-11-24 05:15] LABS: BASOPHILS % (AUTO) 0.2 % (0.2-1.0); HEMOGLOBIN 14.1 g/dL (13.5-18.0); LYMPHOCYTES # (AUTO) 0.7 X10^3/uL (1.3-2.9); LYMPHOCYTES % (AUTO) 7.7 % (21.0-51.0); MEAN CORPUSCULAR HEMOGLOBIN 28.4 pg (27.0-34.0); MEAN CORPUSCULAR HGB CONC 34.3 g/dL (33.0-35.0); MEAN CORPUSCULAR VOLUME 82.9 fL (80.0-100.0); MEAN PLATELET VOLUME 8.8 fL (7.4-11.0); MONOCYTES # (AUTO) 0.2 x10^3/uL (0.3-0.8); MONOCYTES % (AUTO) 1.8 % (0.0-13.0); NEUTROPHILS # (AUTO) 8.6 x10^3/uL (2.2-4.8); NEUTROPHILS % (AUTO) 90.3 % (42.0-75.0); RED BLOOD COUNT 4.94 X10^6/uL (4.7-6.0); RED CELL DISTRIBUTION WIDTH 14.3 % (11.6-16.5); WHITE BLOOD COUNT 9.5 X10^3/uL (3.6-10.0)
[2021-11-24 05:25] LABS: ALBUMIN 2.6 g/dL (3.4-5.0); CALCIUM 9.6 mg/dL (8.5-10.1); CARBON DIOXIDE 24.6 mmol/L (21-32); COR CA(FOR HYPOALB) 10.7 mg/dL (8.5-10.1); CREATININE 1.53 mg/dL (0.70-1.30); TOTAL PROTEIN 7.1 g/dL (6.4-8.2)
[2021-11-24 05:38] LABS: ABG ALLEN TEST POS; ABG BASE EXCESS 1.1 mmol/L (-2.0-2.0); ABG HCO3 25.1 mmol/L (22-26)
[2021-11-24 05:43] LABS: BAND NEUTROPHILS % 2 % (0-10); PLATELET MORPHOLOGY COMMENT NORMAL (NORMAL)
[2021-11-24] MEDS: TESSALON PERLES PO SCH ×3 (05:55→21:55)
[2021-11-24] MEDS: XOPENEX 1.25 MG/3 ML NEBULE NEB SCH ×3 (05:55→20:12)
[2021-11-24] MEDS: SOLU-Medrol 40 MG VIAL IVP SCH ×3 (05:55→21:54)
[2021-11-24] MEDS: NovoLIN R (or HumuLIN R) SUBCUT PRN ×3 (05:56→16:54)
[2021-11-24] MEDS ORDERED: POTASSIUM CHLORIDE LIQ 20 MEQ UDC PO PRN (05:57)
[2021-11-24] MEDS ORDERED: KLOR-CON PO PRN (05:57)
[2021-11-24] MEDS ORDERED: POTASSIUM CHL 60 MEQ/NS 0.45% 500 ML IV PRN (05:57)
[2021-11-24] MEDS ORDERED: MAGNESIUM SULFATE 1 GRAM/100 mL PREMIX 1 G/100 ML BAG IV PRN (05:57)
[2021-11-24] MEDS ORDERED: MICRO K EXTEN CAP 10 MEQ PO PRN (05:57)
[2021-11-24] MEDS ORDERED: POTASSIUM CHL 40 MEQ/NS 0.45% 500 ML IV PRN (05:57)
[2021-11-24] MEDS ORDERED: K-RIDER 10 MEQ/NS 100 ML 10 MEQ/100 ML BAG IV PRN (05:57)
--- NOTE | 2021-11-24 07:30 | RAD ---
HISTORYCOVID+STUDYCHEST, 1 [id number]/21TECHNIQUEAP view of the chestFINDINGSCardiac and mediastinal contours are within normal limits. There are mild bilateral hazy and interstitial scattered opacities. No definite pleural effusion or pneumothorax.IMPRESSIONMild bilateral hazy and interstitial opacities consistent with COVID 19.Electronically signed by: Sharif Jimenez (Nov 24, 2021 07:28:50)
--- NOTE | 2021-11-24 08:33 | DR.H&P ---
H&P - History & Physical for Day of: H&P Date: 11/23/21 - Chief Complaint Chief Complaint: COVID, COUGH, SOB, WEAKNESS, BODY ACHES - History of Present Illness History of Present Illness: IS A 71 YEAR OLD PATIENT OF OURS. HE PRESENTED TO THE HOSPITAL A DIRECT ADMISSION FOR TREATMENT OF COVID PNEUMONIA AND HYPOXIA. PATIENT REPORTS THAT HE BEGAN HAVING COUGH, SHORTNESS OF BREATH, WEAKNESS, AND BODY ACHES AROUND 11/16/21. HE TESTED POSITIVE FOR COVID-19 IN THE OFFICE. HE HAD THE REGEN-COV INFUSION ON 11/17/21. HE WAS ALSO BEGAN TAKING LEVAQUIN 750MG PO DAILY ON 11/20/21. HE DENIES IMPROVEMENT IN SYMPTOMS DESPITE COMPLIANCE WITH MEDICATIONS. IN THE OFFICE, PATIENTS SATURATIONS WERE NOTED TO BE 86% ON ROOM AIR. HIS PMH INCLUDES: TIA, HTN, SLEEP APNEA, KIDNEY STONES, MYASTHENIA GRAVIS, ARTHRITIS, DM II, PROSTATE CANCER, ANXIETY/DEPRESSION, [place], CATARACT REMOVAL. HE WAS ADMITTED TO THE HOSPITAL FOR FURTHER EVALUATION AND TREATMENT. ON ARRIVAL, HIS VITALS WERE 99.1-108-32-90% (4LPM 02)-128/62. LABS WERE OBTAINED. ABNORMAL LAB VALUES INCLUDED THE FOLLOWING: WBC 12.2, SODIUM 135, POTASSIUM 3.1, CHLORIDE 96, BUN 21, CREATININE 1.56, GLUCOSE 151, TOTAL BILI 1.20, CRP 214.10, ALBUMIN 3.1, GLOBULIN 4.9. COVID-19 POSITIVE. ABG OBTAINED AND REVEALED: PH 7.520, PC02 33, P02 40, HC03 26.9, 02 SAT 81, BASE EXCESS 4.3, A-A GRADIENT 68, FI02 21. CHEST XRAY WAS OBTAINED AND REVEALED: Mild bilateral hazy and interstitial opacities consistent with COVID 19. HE WAS STARTED ON NORMAL SALINE AT 75 ML/HR, IV REMDESIVIR, SOLU-MEDROL 80MG IV Q8H, LEVAQUIN 500MG IV DAILY, ASCORBIC ACID 500MG PO Q6H, LOVENOX, PULMICORT NEBS, XOPENEX NEBS, FLUVOXAMINE 50MG PO BID, IVERMECTIN 18MG PO Q72H, ZINC SULFATE 220MG PO DAILY, PROBIOTICS, ROBITUSSIN DM 10ML PO QID, TESSALON PERLES 200MG PO TID, TUSSIONEX 5ML PO Q12H PRN, AND THE POTASSIUM AND MAGNESIUM PROTOCOLS. WE WILL ADMINISTER ACTEMRA 400MG IV X 1 DOSE. OTHERWISE, WE PLAN TO FOLLOW UP WITH AM LABS AND CHEST XRAY AND CONTINUE TO MONITOR. TIME SPENT ON CLINICAL ASSESSMENT, REVIEWING LABS AND IMAGING, DECISION MAKING, AND DOCUMENTATION WAS GREATER THAN 75 MINUTES. - Past Medical History Past Medical History: Arthritis, Diabetes, Hypertension, Kidney Stones, [place], Sleep Apnea Additional Medical History: BPH, TIA, MYASTHENIA GRAVIS, PROSTATE CANCER, CATARACT REMOVAL - Past Surgical History Surgical History: Other - Family History Family Medical History: [place], Hypertension - Social History Does patient currently use any type of tobacco product: No Have you used tobacco products in the last 12 months: No Type of Tobacco Use: None Alcohol Use: None Drug Use: None - Medications Home Medications: Iodinated Contrast Media [Iodinated Contrast- Oral and IV Dye] Allergy (Verified 12/23/19 14:22) Iodine and Iodide Containing Produc Allergy (Verified 12/23/19 14:22) Sulfa (Sulfonamide Antibiotics) [SULFA] Allergy (Verified 12/23/19 14:22) - Review of Systems Constitutional: Fever, Weakness Eyes: No Symptoms Reported ENT: No Symptoms Reported Respiratory: See HPI, Cough, Shortness of Breath, SOB with Excertion Cardiovascular: No Symptoms Reported Gastrointestinal: No Symptoms Reported Genitourinary: No Symptoms Reported Musculoskeletal: No Symptoms Reported Skin: No Symptoms Reported Neurological: Weakness - Physical Exam Vital Signs: Temperature 98.2 F Pulse Rate [Radial] 92 Pulse Rate 93 Respiratory Rate 20 Blood Pressure [Right Arm] 122/57 Blood Pressure 150/86 O2 Sat by Pulse Oximetry 89 Oriented: Normal Eyes: Normal Ear: Normal Nose: Normal Throat: Normal Respiratory: Rhonchi Throughout Cardiovascular: Tachycardia : Normal Auscultation: Bowel Sounds: Normal Palpation: Normal Tenderness: Normal Skin: Normal Musculoskeletal: Normal Psychiatric: Normal Mood Description: Calm Affect: Normal Speech Pattern: Clear - Assessment/Plan (1) Pneumonia due to COVID-19 virus Status: Acute Plan: admit, supplemental oxygen, iv antibiotics, iv steroids, remdesivir, neb tx, immune supplements, actemra x 1 dose (2) Hypoxia Status: Acute (3) Diabetes mellitus Qualifiers: Diabetes mellitus type: type 2 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 Diabetes mellitus complication status: with hyperglycemia Qualified Code(s): E11.65 - Type 2 diabetes mellitus with hyperglycemia; Z79.4 - [facility] (current) use of insulin Status: Chronic (4) Essential hypertension Status: Chronic (5) Prostatic hypertrophy Status: Chronic (6) Myasthenia gravis Status: Chronic - Allergies Allergies/Adverse Reactions: Allergies Allergy/AdvReac Type Severity Reaction Status Date / Time Iodinated Contrast Media Allergy Verified 12/23/19 14:22 [Iodinated Contrast- Oral and IV Dye] Iodine and Iodide Containing Allergy Verified 12/23/19 14:22 Produc Sulfa (Sulfonamide Allergy Verified 12/23/19 14:22 Antibiotics) [SULFA]
[2021-11-24] MEDS ORDERED: NS 1/2 1,000 ML IV 1,000 ML IV ONE (08:48)
[2021-11-24] MEDS: NS 1/2 1,000 ML IV 1,000 ML IV SCH ×2 (09:00→23:49)
[2021-11-24] MEDS: LUVOX PO SCH ×2 (09:07→20:26)
[2021-11-24] MEDS: PROTONIX INJ 40 MG VIAL IVP SCH ×2 (09:08→20:27)
[2021-11-24] MEDS: REMDESIVIR 100 MG in NS 250 ML IV 250 ML IV SCH (09:08)
[2021-11-24] MEDS: K-DUR TAB 20 MEQ PO PRN (09:08)
[2021-11-24] MEDS: ROBITUSSIN DM PO SCH ×4 (09:09→20:27)
[2021-11-24] MEDS: ZINC SULFATE PO SCH ×2 (09:09→09:26)
[2021-11-24] MEDS: LEVAQUIN PREMIX IV 500 MG 500 MG/100 ML BAG IV SCH (09:10)
[2021-11-24] MEDS: VSL#3 PO SCH (09:10)
[2021-11-24] MEDS: VITAMIN C PO SCH ×3 (09:10→20:28)
[2021-11-24] MEDS: PULMICORT NEB TX 0.5 MG NEB SCH ×2 (09:12→20:12)
[2021-11-24] MEDS ORDERED: CELEXA PO SCH (10:00)
[2021-11-24] MEDS ORDERED: GLUCOPHAGE ONE ×2 (10:09→20:20)
[2021-11-24] MEDS: ELIQUIS PO SCH ×3 (10:25→23:49)
[2021-11-24] MEDS: NEURONTIN CAP 300 MG PO SCH ×3 (10:26→21:54)
[2021-11-24] MEDS: PYRIDOSTIGMINE BROMIDE 60 MG PO SCH ×3 (10:26→21:54)
[2021-11-24] MEDS: GLUCOPHAGE PO SCH ×2 (10:26→20:26)
[2021-11-24] MEDS: AMARYL TAB 4 MG PO SCH ×2 (10:26→20:24)
[2021-11-24] MEDS ORDERED: ACTEMRA 400 MG in NS 100 ML IV 80 ML IV ONE (10:30)
[2021-11-24] MEDS: SNACK - Diabetic Appropriate PO SCH ×2 (20:23)
[2021-11-25] MEDS: RESTORIL CAP 15 MG PO PRN ×2 (00:02→20:39)
[2021-11-25] MEDS ORDERED: NS 1/2 1,000 ML IV 1,000 ML IV ONE ×2 (02:22→14:55)
[2021-11-25] MEDS: VITAMIN C PO SCH ×4 (02:35→20:36)
[2021-11-25] MEDS: NS 1/2 1,000 ML IV 1,000 ML IV SCH ×2 (02:36→14:57)
[2021-11-25 05:08] LABS: BASOPHILS % (AUTO) 0.1 % (0.2-1.0); HEMATOCRIT 40.2 % (42.0-54.0); HEMOGLOBIN 13.6 g/dL (13.5-18.0); LYMPHOCYTES # (AUTO) 0.8 X10^3/uL (1.3-2.9); MEAN CORPUSCULAR HEMOGLOBIN 28.1 pg (27.0-34.0); MEAN CORPUSCULAR HGB CONC 33.7 g/dL (33.0-35.0); MEAN CORPUSCULAR VOLUME 83.3 fL (80.0-100.0); MEAN PLATELET VOLUME 9.3 fL (7.4-11.0); MONOCYTES # (AUTO) 0.4 x10^3/uL (0.3-0.8); MONOCYTES % (AUTO) 3.4 % (0.0-13.0); NEUTROPHILS # (AUTO) 10.5 x10^3/uL (2.2-4.8); NEUTROPHILS % (AUTO) 89.5 % (42.0-75.0); RED BLOOD COUNT 4.82 X10^6/uL (4.7-6.0); RED CELL DISTRIBUTION WIDTH 14.4 % (11.6-16.5); WHITE BLOOD COUNT 11.8 X10^3/uL (3.6-10.0)
[2021-11-25 05:18] LABS: ALANINE AMINOTRANSFERASE 24 Units/L (12-78); ALBUMIN 2.4 g/dL (3.4-5.0); ALKALINE PHOSPHATASE 53 Units/L (46-116); ASPARTATE AMINO TRANSFERASE 19 Units/L (15-37); BLOOD UREA NITROGEN 28 mg/dL (7-18); CALCIUM 9.4 mg/dL (8.5-10.1); CARBON DIOXIDE 23.7 mmol/L (21-32); CHLORIDE 102 mmol/L (98-107); COR CA(FOR HYPOALB) 10.7 mg/dL (8.5-10.1); COR NA(FOR HYPERGLY) 143 mmol/L (136-145); CREATININE 1.38 mg/dL (0.70-1.30); SODIUM 140 mmol/L (136-145); TOTAL PROTEIN 6.4 g/dL (6.4-8.2); eGFR NON BLACK RACES 54 (>60)
[2021-11-25] MEDS: XOPENEX 1.25 MG/3 ML NEBULE NEB SCH ×4 (05:30→20:36)
[2021-11-25] MEDS: NEURONTIN CAP 300 MG PO SCH ×3 (06:07→21:13)
[2021-11-25] MEDS: NovoLIN R (or HumuLIN R) SUBCUT PRN ×3 (06:08→16:31)
[2021-11-25] MEDS: SOLU-Medrol 40 MG VIAL IVP SCH ×3 (06:08→21:14)
[2021-11-25] MEDS: PYRIDOSTIGMINE BROMIDE 60 MG PO SCH ×3 (06:08→21:13)
[2021-11-25] MEDS: TESSALON PERLES PO SCH ×3 (06:08→21:14)
--- NOTE | 2021-11-25 07:02 | RAD ---
HISTORYSOBSTUDYAP chestCOMPARISONJanuary 2021FINDINGSContinued normal heart size and contour. There is slight interval interstitial prominence without evidence for focal airspace consolidation or developing pleural effusion. Hilar structures remain symmetric. No pneumothorax seen.IMPRESSIONSlight interval increase in bilateral interstitial infiltrates consistent with atypical pneumonia pattern.Electronically signed by: SELENA FERNANDO (Nov 25, 2021 07:01:03)
[2021-11-25] MEDS ORDERED: GLUCOPHAGE ONE (08:08)
[2021-11-25] MEDS: PULMICORT NEB TX 0.5 MG NEB SCH ×2 (09:18→20:36)
[2021-11-25] MEDS ORDERED: IVERMECTIN PO ONE (09:35)
[2021-11-25] MEDS: ELIQUIS PO SCH ×3 (09:38→20:33)
[2021-11-25] MEDS: AMARYL TAB 4 MG PO SCH ×3 (09:38→20:33)
[2021-11-25] MEDS: PROTONIX INJ 40 MG VIAL IVP SCH ×2 (09:39→20:34)
[2021-11-25] MEDS: LEVAQUIN PREMIX IV 500 MG 500 MG/100 ML BAG IV SCH (09:39)
[2021-11-25] MEDS: LUVOX PO SCH ×2 (09:39→20:34)
[2021-11-25] MEDS: FOLIC ACID TAB 1 MG PO SCH (09:39)
[2021-11-25] MEDS: GLUCOPHAGE PO SCH ×2 (09:39→20:34)
[2021-11-25] MEDS: VSL#3 PO SCH (09:40)
[2021-11-25] MEDS: REMDESIVIR 100 MG in NS 250 ML IV 250 ML IV SCH (09:40)
[2021-11-25] MEDS: ROBITUSSIN DM PO SCH ×4 (09:40→20:36)
[2021-11-25] MEDS: ZINC SULFATE PO SCH (09:40)
[2021-11-25] MEDS: VITAMIN D (1.25MG) PO SCH (10:34)
[2021-11-25] MEDS: SNACK - Diabetic Appropriate PO SCH ×2 (20:32)
[2021-11-25] MEDS: K-DUR TAB 20 MEQ PO PRN (20:37)
[2021-11-26] MEDS: NS 1/2 1,000 ML IV 1,000 ML IV SCH ×2 (02:25→17:22)
[2021-11-26] MEDS: VITAMIN C PO SCH ×4 (02:25→21:20)
[2021-11-26] MEDS ORDERED: NS 1/2 1,000 ML IV 1,000 ML IV ONE ×2 (02:27→17:23)
[2021-11-26 05:28] LABS: BASOPHILS # (AUTO) 0.2 X10^3/uL (0.0-0.1); BASOPHILS % (AUTO) 1.6 % (0.2-1.0); EOSINOPHILS # (AUTO) 0.1 x10^3/uL (0.0-0.2); EOSINOPHILS % (AUTO) 0.5 % (0.9-2.9); HEMATOCRIT 38.1 % (42.0-54.0); HEMOGLOBIN 12.9 g/dL (13.5-18.0); LYMPHOCYTES # (AUTO) 0.5 X10^3/uL (1.3-2.9); LYMPHOCYTES % (AUTO) 3.9 % (21.0-51.0); MEAN CORPUSCULAR HGB CONC 33.8 g/dL (33.0-35.0); MEAN CORPUSCULAR VOLUME 82.9 fL (80.0-100.0); MONOCYTES # (AUTO) 0.3 x10^3/uL (0.3-0.8); MONOCYTES % (AUTO) 2.3 % (0.0-13.0); NEUTROPHILS # (AUTO) 11.3 x10^3/uL (2.2-4.8); NEUTROPHILS % (AUTO) 91.7 % (42.0-75.0); RED BLOOD COUNT 4.59 X10^6/uL (4.7-6.0); RED CELL DISTRIBUTION WIDTH 14.7 % (11.6-16.5); WHITE BLOOD COUNT 12.3 X10^3/uL (3.6-10.0)
[2021-11-26 05:39] LABS: ALANINE AMINOTRANSFERASE 23 Units/L (12-78); ALBUMIN 2.3 g/dL (3.4-5.0); ALKALINE PHOSPHATASE 55 Units/L (46-116); ASPARTATE AMINO TRANSFERASE 21 Units/L (15-37); BLOOD UREA NITROGEN 36 mg/dL (7-18); CALCIUM 9.1 mg/dL (8.5-10.1); CHLORIDE 105 mmol/L (98-107); COR CA(FOR HYPOALB) 10.5 mg/dL (8.5-10.1); COR NA(FOR HYPERGLY) 142 mmol/L (136-145); CREATININE 1.28 mg/dL (0.70-1.30); SODIUM 141 mmol/L (136-145); TOTAL PROTEIN 5.9 g/dL (6.4-8.2); eGFR NON BLACK RACES 59 (>60)
[2021-11-26] MEDS: XOPENEX 1.25 MG/3 ML NEBULE NEB SCH ×3 (05:45→20:55)
[2021-11-26] MEDS: NEURONTIN CAP 300 MG PO SCH ×3 (06:09→21:20)
[2021-11-26] MEDS: SOLU-Medrol 40 MG VIAL IVP SCH ×3 (06:10→21:21)
[2021-11-26] MEDS: TESSALON PERLES PO SCH ×3 (06:10→21:22)
[2021-11-26] MEDS: PYRIDOSTIGMINE BROMIDE 60 MG PO SCH ×3 (06:10→21:21)
[2021-11-26 06:11] LABS: PLATELET MORPHOLOGY COMMENT NORMAL (NORMAL)
--- NOTE | 2021-11-26 07:47 | RAD ---
HISTORYSOBSTUDYAP [id number]/15/2022FINDINGSThe heart is now upper normal to slightly enlarged. There is increasing bilateral infiltrate diffusely distributed without evidence for focal consolidation. No pleural fluid or extrapulmonary air collection.IMPRESSIONBorderline to mild cardiomegaly. Increasing bilateral pulmonary densities consistent with edema or pneumonia. Correlation with clinical findings may assist in this distinction.Electronically signed by: SELENA FERNANDO (Nov 26, 2021 07:45:46)
[2021-11-26] MEDS ORDERED: GLUCOPHAGE ONE (08:19)
[2021-11-26] MEDS: PULMICORT NEB TX 0.5 MG NEB SCH ×2 (08:20→20:55)
[2021-11-26] MEDS: AMARYL TAB 4 MG PO SCH ×2 (08:47→21:17)
[2021-11-26] MEDS: FOLIC ACID TAB 1 MG PO SCH (08:48)
[2021-11-26] MEDS: ELIQUIS PO SCH ×2 (08:48→21:17)
[2021-11-26] MEDS: LUVOX PO SCH ×2 (08:48→21:17)
[2021-11-26] MEDS: GLUCOPHAGE PO SCH ×2 (08:50→21:18)
[2021-11-26] MEDS: VITAMIN D (1.25MG) PO SCH (08:51)
[2021-11-26] MEDS: PROTONIX INJ 40 MG VIAL IVP SCH ×2 (08:51→21:19)
[2021-11-26] MEDS: REMDESIVIR 100 MG in NS 250 ML IV 250 ML IV SCH (08:51)
[2021-11-26] MEDS: LEVAQUIN PREMIX IV 500 MG 500 MG/100 ML BAG IV SCH (08:51)
[2021-11-26] MEDS: ROBITUSSIN DM PO SCH ×4 (08:51→21:19)
[2021-11-26] MEDS: VSL#3 PO SCH (08:52)
[2021-11-26] MEDS: K-DUR TAB 20 MEQ PO PRN (08:52)
[2021-11-26] MEDS: NovoLIN R (or HumuLIN R) SUBCUT PRN (12:11)
[2021-11-26] MEDS: SNACK - Diabetic Appropriate PO SCH ×2 (21:17)
[2021-11-26] MEDS: RESTORIL CAP 15 MG PO PRN (21:23)
[2021-11-27] MEDS: VITAMIN C PO SCH ×4 (02:42→21:33)
[2021-11-27 05:15] LABS: ABG ALLEN TEST POS; ABG BASE EXCESS 2.2 mmol/L (-2.0-2.0); ABG HCO3 26.5 mmol/L (22-26)
[2021-11-27 05:19] LABS: BASOPHILS % (AUTO) 0.2 % (0.2-1.0); HEMATOCRIT 39.5 % (42.0-54.0); HEMOGLOBIN 13.1 g/dL (13.5-18.0); LYMPHOCYTES # (AUTO) 0.7 X10^3/uL (1.3-2.9); LYMPHOCYTES % (AUTO) 7.6 % (21.0-51.0); MEAN CORPUSCULAR HEMOGLOBIN 27.8 pg (27.0-34.0); MEAN CORPUSCULAR HGB CONC 33.3 g/dL (33.0-35.0); MEAN CORPUSCULAR VOLUME 83.4 fL (80.0-100.0); MONOCYTES # (AUTO) 0.4 x10^3/uL (0.3-0.8); MONOCYTES % (AUTO) 4.3 % (0.0-13.0); NEUTROPHILS # (AUTO) 8.2 x10^3/uL (2.2-4.8); NEUTROPHILS % (AUTO) 87.9 % (42.0-75.0); RED BLOOD COUNT 4.73 X10^6/uL (4.7-6.0); RED CELL DISTRIBUTION WIDTH 14.5 % (11.6-16.5); WHITE BLOOD COUNT 9.3 X10^3/uL (3.6-10.0)
[2021-11-27] MEDS: XOPENEX 1.25 MG/3 ML NEBULE NEB SCH ×3 (05:28→21:08)
[2021-11-27 05:32] LABS: ALANINE AMINOTRANSFERASE 22 Units/L (12-78); ALBUMIN 2.3 g/dL (3.4-5.0); ALKALINE PHOSPHATASE 56 Units/L (46-116); ASPARTATE AMINO TRANSFERASE 23 Units/L (15-37); BLOOD UREA NITROGEN 37 mg/dL (7-18); CALCIUM 8.6 mg/dL (8.5-10.1); CARBON DIOXIDE 26.3 mmol/L (21-32); CHLORIDE 107 mmol/L (98-107); COR NA(FOR HYPERGLY) 144 mmol/L (136-145); CREATININE 1.19 mg/dL (0.70-1.30); SODIUM 143 mmol/L (136-145); TOTAL PROTEIN 5.7 g/dL (6.4-8.2); eGFR NON BLACK RACES > 60 (>60)
[2021-11-27 05:57] LABS: BAND NEUTROPHILS % 1 % (0-10); PLATELET MORPHOLOGY COMMENT NORMAL (NORMAL)
[2021-11-27] MEDS: NS 1/2 1,000 ML IV 1,000 ML IV SCH ×2 (06:04→21:33)
[2021-11-27] MEDS: PYRIDOSTIGMINE BROMIDE 60 MG PO SCH ×3 (06:05→21:58)
[2021-11-27] MEDS: NEURONTIN CAP 300 MG PO SCH ×3 (06:05→21:33)
[2021-11-27] MEDS: SOLU-Medrol 40 MG VIAL IVP SCH (06:06)
[2021-11-27] MEDS: TESSALON PERLES PO SCH ×3 (06:06→21:34)
[2021-11-27] MEDS: PULMICORT NEB TX 0.5 MG NEB SCH ×2 (08:16→21:08)
[2021-11-27] MEDS ORDERED: GLUCOPHAGE ONE ×2 (08:18→20:21)
[2021-11-27] MEDS: ELIQUIS PO SCH ×2 (08:43→21:34)
[2021-11-27] MEDS: FOLIC ACID TAB 1 MG PO SCH (08:43)
[2021-11-27] MEDS: LUVOX PO SCH ×2 (08:43→21:34)
[2021-11-27] MEDS: AMARYL TAB 4 MG PO SCH ×2 (08:43→21:18)
[2021-11-27] MEDS: PROTONIX INJ 40 MG VIAL IVP SCH ×2 (08:44→21:35)
[2021-11-27] MEDS: VSL#3 PO SCH (08:44)
[2021-11-27] MEDS: ROBITUSSIN DM PO SCH ×4 (08:44→21:35)
[2021-11-27] MEDS: VITAMIN D (1.25MG) PO SCH (08:44)
[2021-11-27] MEDS: GLUCOPHAGE PO SCH ×2 (08:44→21:34)
[2021-11-27] MEDS: REMDESIVIR 100 MG in NS 250 ML IV 250 ML IV SCH (08:45)
[2021-11-27] MEDS: LEVAQUIN PREMIX IV 500 MG 500 MG/100 ML BAG IV SCH (08:45)
--- NOTE | 2021-11-27 10:02 | PCM.PROG ---
Progress Note - Progress Note for Day of Date of Exam: 11/27/21 - Subjective Subjective: IS BEING TREATED FOR PNEUMONIA DUE TO COVID-19 AND HYPOXIA. HE HAS A PMH OF DM, HTN, BPH, MYASTHENIA GRAVIS, ARTHRITIS, [place], AND SLEEP APNEA. TODAY, HE IS ALERT, SITTING UP IN BED ON MORNING ROUNDS. HE CONTINUES WITH COMPLAINTS OF WEAKNESS AND SHORTNESS OF BREATH. HE DOES ADMIT TO SLIGHT IMPROVEMENT IN SYMPTOMS SINCE ADMISSION. HE IS REQUIRING HEATED HIGH FLOW OXYGEN AT 90% THIS MORNING. HIS SATURATIONS HAVE BEEN 87-96% THIS MORNING AND THROUGHOUT THE NIGHT. HE DID UTILIZE THE CPAP THROUGHOUT THE NIGHT. ON EXAMINATION, HEART IS REGULAR IN RATE AND RHYTHM. BILATERAL LUNGS NOTED WITH SCATTERED RHONCHI THROUGHOUT. ABDOMEN IS ROUND, SOFT, AND NON-TENDER WITH NORMAL BOWEL SOUNDS NOTED IN ALL QUADRANTS. HIS VITALS THIS MORNING ARE: 98.9-50-24-96%-116/56. LABS WERE OBTAINED. ABNORMAL LAB VALUES INCLUDE THE FOLLOWING: HGB 13.1, HCT 39.5, BUN 37, GLUCOSE 140, CRP 23.90, TOTAL PROTEIN 5.7, ALBUMIN 2.3. BLOOD CULTURES ARE PENDING. HE IS CURRENTLY RECEIVING NORMAL SALINE AT 75 ML/HR, IV REMDESIVIR, SOLU-MEDROL 40MG IV Q8H, LEVAQUIN 500MG IV DAILY, ASCORBIC ACID 500MG PO Q6H, LOVENOX, PULMICORT NEBS, XOPENEX NEBS, FLUVOXAMINE 50MG PO BID, IVERMECTIN 18MG PO Q72H, ZINC SULFATE 220MG PO DAILY, PROBIOTICS, ROBITUSSIN DM 10ML PO QID, TESSALON PERLES 200MG PO TID, TUSSIONEX 5ML PO Q12H PRN, AND THE POTASSIUM AND MAGNESIUM PROTOCOLS. HE RECEIVED ACTEMRA 400MG IV X 1 DOSE. TODAY, WE WILL DECREASE IV FLUIDS TO KVO. WE WILL ADD ALBUMIN 25% IV DAILY AND INCREASE SOLU-MEDROL TO 80MG IV Q8H. OTHERWISE, WE WILL CONTINUE WITH CURRENT PLAN OF CARE AND WEAN OXYGEN TOLERATED. WE WILL FOLLOW UP WITH AM LABS AND CHEST XRAY AND CONTINUE TO MONITOR. TIME SPENT ON CLINICAL ASSESSMENT, REVIEWING LABS AND IMAGING, DECISION MAKING, AND DOCUMENTATION WAS GREATER THAN 45 MINUTES. - Past Medical Family Social History Past Med/Fam/Surg Hx: No changes since H&P Allergies: Allergies Iodinated Contrast Media [Iodinated Contrast- Oral and IV Dye] Allergy (Verified 12/23/19 14:) Iodine and Iodide Containing Produc Allergy (Verified 12/23/19 14:22) Sulfa (Sulfonamide Antibiotics) [SULFA] Allergy (Verified 12/23/19 14:) - Review of Systems ROS: No change since H&P - Vital Signs and I&O's Vital Signs: Temperature 98.9 F Pulse Rate [Radial] 73 Pulse Rate 49 Respiratory Rate 30 Blood Pressure [Right Arm] 122/60 Blood Pressure 116/56 O2 Sat by Pulse Oximetry 96 Intake and Output: Intake & Output 11/24/21 11/25/21 11/26/21 11/27/21 11:59 11:59 11:59 11:59 Intake Total 1684 / 1684 2894 / 2894 3418 / 3418 2746 / 2746 Output Total 900 / 900 275 / 275 750 / 750 600 / 600 Balance 784 / 784 2619 / 2619 2668 / 2668 2146 / 2146 - Physical Exam Oriented: Normal Eyes: Normal Ear: Normal Nose: Normal Throat: Normal Respiratory: Generalized, Diminished, Rhonchi Cardiovascular: Bradycardia : Normal Auscultation: Bowel Sounds: Normal Palpation: Normal Tenderness: Normal Skin: Normal Musculoskeletal: Normal Psychiatric: Normal Mood Description: Calm Affect: Normal Speech Pattern: Clear, Appropriate - Laboratory and Diagnostics Result Diagrams: 11/27/21 04:18 11/27/21 04:18 Labs: 11/23/21 17:40 Blood Blood Culture - Preliminary 11/23/21 17:35 Blood Blood Culture - Preliminary Laboratory WBC 9.3 X10^3/uL (3.6-10.0) 11/27/21 04:18 RBC 4.73 X10^6/uL (4.7-6.0) 11/27/21 04:18 Hgb 13.1 g/dL (13.5-18.0) L 11/27/21 04:18 Hct 39.5 % (42.0-54.0) L 11/27/21 04:18 MCV 83.4 fL (80.0-100.0) 11/27/21 04:18 MCH 27.8 pg (27.0-34.0) 11/27/21 04:18 MCHC 33.3 g/dL (33.0-35.0) 11/27/21 04:18 RDW 14.5 % (11.6-16.5) 11/27/21 04:18 Plt Count 247 X10^3/uL (150.0-450.0) 11/27/21 04:18 Plt Count Comment Adequate (ADEQUATE) 11/27/21 04:18 MPV 9.0 fL (7.4-11.0) 11/27/21 04:18 Neut % (Auto) 87.9 % (42.0-75.0) H 11/27/21 04:18 Lymph % (Auto) 7.6 % (21.0-51.0) L 11/27/21 04:18 [place] % (Auto) 4.3 % (0.0-13.0) 11/27/21 04:18 Eos % (Auto) 0.0 % (0.9-2.9) L 11/27/21 04:18 Baso % (Auto) 0.2 % (0.2-1.0) 11/27/21 04:18 Neut # (Auto) 8.2 x10^3/uL (2.2-4.8) H 11/27/21 04:18 Lymph # (Auto) 0.7 X10^3/uL (1.3-2.9) L 11/27/21 04:18 [place] # (Auto) 0.4 x10^3/uL (0.3-0.8) 11/27/21 04:18 Eos # (Auto) 0.0 x10^3/uL (0.0-0.2) 11/27/21 04:18 Baso # (Auto) 0.0 X10^3/uL (0.0-0.1) 11/27/21 04:18 Absolute Nucleated RBC 0.1 /100WBC 11/27/21 04:18 Total Counted 100 11/27/21 04:18 Neutrophils % (Manual) 80 % (39-76) H 11/27/21 04:18 Band Neutrophils % 1 % (0-10) 11/27/21 04:18 Lymphocytes % (Manual) 14 % (13-43) 11/27/21 04:18 Monocytes % (Manual) 5 % (4-9) 11/27/21 04:18 Plt Morphology Comment Normal (NORMAL) 11/27/21 04:18 RBC Morphology Normal (NORMAL) 11/27/21 04:18 D-Dimer 0.43 ug/ml (0.0-0.57) 11/23/21 17:35 Sample Site Rr 11/27/21 05:00 ABG pH 7.440 (7.35-7.45) 11/27/21 05:00 ABG pCO2 39.0 mmHg (35.0-45.0) 11/27/21 05:00 ABG pO2 55.0 mmHg (80.0-100.0) L 11/27/21 05:00 ABG HCO3 26.5 mmol/L (22-26) H 11/27/21 05:00 ABG O2 Saturation 89.0 % (90-100) L 11/27/21 05:00 ABG Base Excess 2.2 mmol/L (-2.0-2.0) H 11/27/21 05:00 Basilio Test Pos 11/27/21 05:00 A-a Gradient 395.0 mmHg 11/27/21 05:00 FiO2 70.0 11/27/21 05:00 Blood Gas Comments Heather well sw 11/27/21 05:00 Sodium 143 mmol/L (136-145) 11/27/21 04:18 Corrected Sodium 144 mmol/L (136-145) 11/27/21 04:18 Potassium 4.1 mmol/L (3.5-5.1) 11/27/21 04:18 Chloride 107 mmol/L (98-107) 11/27/21 04:18 Carbon Dioxide 26.3 mmol/L (21-32) 11/27/21 04:18 BUN 37 mg/dL (7-18) H 11/27/21 04:18 Creatinine 1.19 mg/dL (0.70-1.30) 11/27/21 04:18 Est GFR (MDRD) Af Amer > 60 (>60) 11/27/21 04:18 Est GFR (MDRD) Non-Af > 60 (>60) 11/27/21 04:18 Glucose 140 mg/dL (65-99) H 11/27/21 04:18 POC Glucose (mg/dL) 125 mg/dL (65-99) H 11/26/21 19:54 Calcium 8.6 mg/dL (8.5-10.1) 11/27/21 04:18 Corrected Calcium 10.0 mg/dL (8.5-10.1) 11/27/21 04:18 Magnesium 2.2 mg/dL (1.7-2.9) 11/25/21 04:07 Ferritin 333 ng/mL (26-388) 11/23/21 17:35 Total Bilirubin 0.40 mg/dL (0.2-1.0) 11/27/21 04:18 AST 23 Units/L (15-37) 11/27/21 04:18 ALT 22 Units/L (12-78) 11/27/21 04:18 Alkaline Phosphatase 56 Units/L (46-116) 11/27/21 04:18 C-Reactive Protein 23.90 mg/L (0-3.0) H 11/27/21 04:18 B-Natriuretic Peptide 113 pg/mL (0-79) H 11/24/21 04:30 Total Protein 5.7 g/dL (6.4-8.2) L 11/27/21 04:18 Albumin 2.3 g/dL (3.4-5.0) L 11/27/21 04:18 Globulin 3.4 g/dL (2.5-4.5) 11/27/21 04:18 Albumin/Globulin Ratio 0.7 Ratio (1.1-2.1) L 11/27/21 04:18 - Plan (1) Pneumonia due to COVID-19 virus Status: Acute Plan: supplemental oxygen, iv antibiotics, iv steroids, remdesivir, albumin, neb tx, immune supplements (2) Hypoxia Status: Acute (3) Diabetes mellitus Status: Chronic Qualifiers: Diabetes mellitus type: type 2 Diabetes mellitus terminal makeup operator insulin use: with terminal makeup operator use Diabetes mellitus complication status: with hyperglycemia Qualified Code(s): E11.65 - Type 2 diabetes mellitus with hyperglycemia; Z79.4 - computer terminal operator (current) use of insulin (4) Essential hypertension Status: Chronic (5) Prostatic hypertrophy Status: Chronic (6) Myasthenia gravis Status: Chronic
--- NOTE | 2021-11-27 10:42 | RAD ---
HISTORYCOVID+STUDYCHEST x-ray, 1 VIEWCOMPARISONX-ray 11/26/2021FINDINGSModerate to prominent bilateral COVID-19 pneumonia is suspected. This is similar to prior study possible cardiomegaly is seen without pulmonary venous congestion. No pneumothorax or pleural effusion is seen.IMPRESSIONPersistent bilateral pneumonia.Electronically signed by: Jordy Rose (Nov 27, 2021 10:41:14)
[2021-11-27] MEDS: ALBUMIN HUMAN 25%- 100 ML 100 ML IV SCH (10:53)
[2021-11-27] MEDS: SOLU-Medrol 125 MG VIAL IVP SCH ×2 (13:21→21:35)
[2021-11-27] MEDS ORDERED: NS 1/2 1,000 ML IV 1,000 ML IV ONE (21:30)
[2021-11-27] MEDS: SNACK - Diabetic Appropriate PO SCH (21:36)
[2021-11-27] MEDS: RESTORIL CAP 15 MG PO PRN (21:59)
[2021-11-28] MEDS: VITAMIN C PO SCH ×4 (03:00→20:48)
[2021-11-28 05:06] LABS: ABG ALLEN TEST POS; ABG BASE EXCESS 1.3 mmol/L (-2.0-2.0); ABG HCO3 24.9 mmol/L (22-26)
[2021-11-28] MEDS: XOPENEX 1.25 MG/3 ML NEBULE NEB SCH ×2 (05:08→20:35)
[2021-11-28 05:20] LABS: BASOPHILS % (AUTO) 0.2 % (0.2-1.0); HEMATOCRIT 38.5 % (42.0-54.0); LYMPHOCYTES # (AUTO) 0.7 X10^3/uL (1.3-2.9); LYMPHOCYTES % (AUTO) 7.9 % (21.0-51.0); MEAN CORPUSCULAR HEMOGLOBIN 28.2 pg (27.0-34.0); MEAN CORPUSCULAR HGB CONC 33.7 g/dL (33.0-35.0); MEAN CORPUSCULAR VOLUME 83.7 fL (80.0-100.0); MEAN PLATELET VOLUME 8.7 fL (7.4-11.0); MONOCYTES # (AUTO) 0.3 x10^3/uL (0.3-0.8); MONOCYTES % (AUTO) 2.7 % (0.0-13.0); NEUTROPHILS # (AUTO) 8.2 x10^3/uL (2.2-4.8); NEUTROPHILS % (AUTO) 89.2 % (42.0-75.0); RED CELL DISTRIBUTION WIDTH 14.3 % (11.6-16.5); WHITE BLOOD COUNT 9.2 X10^3/uL (3.6-10.0)
[2021-11-28] MEDS: TESSALON PERLES PO SCH ×3 (05:33→22:00)
[2021-11-28] MEDS: NEURONTIN CAP 300 MG PO SCH ×3 (05:33→22:00)
[2021-11-28] MEDS: SOLU-Medrol 125 MG VIAL IVP SCH ×3 (05:33→22:00)
[2021-11-28] MEDS: PYRIDOSTIGMINE BROMIDE 60 MG PO SCH ×3 (05:33→22:00)
[2021-11-28 05:36] LABS: ALANINE AMINOTRANSFERASE 28 Units/L (12-78); ALBUMIN 2.6 g/dL (3.4-5.0); ALKALINE PHOSPHATASE 55 Units/L (46-116); ASPARTATE AMINO TRANSFERASE 29 Units/L (15-37); BLOOD UREA NITROGEN 30 mg/dL (7-18); CALCIUM 8.6 mg/dL (8.5-10.1); CARBON DIOXIDE 23.3 mmol/L (21-32); CHLORIDE 108 mmol/L (98-107); COR CA(FOR HYPOALB) 9.7 mg/dL (8.5-10.1); COR NA(FOR HYPERGLY) 141 mmol/L (136-145); CREATININE 1.17 mg/dL (0.70-1.30); SODIUM 140 mmol/L (136-145); TOTAL PROTEIN 5.7 g/dL (6.4-8.2); eGFR NON BLACK RACES > 60 (>60)
--- NOTE | 2021-11-28 07:40 | RAD ---
HISTORYCOVID+, SOBSTUDYCHEST, 1 [id number].TECHNIQUEAP view of the chestFINDINGSThe cardiac and mediastinal contours appear stable. No significant change in bilateral airspace and interstitial opacities. No definite pleural effusion or pneumothorax. Soft tissue attenuation limits evaluation.IMPRESSIONNo significant change.Electronically signed by: Sharif Jimenez (Nov 28, 2021 07:38:44)
[2021-11-28] MEDS ORDERED: GLUCOPHAGE ONE ×2 (08:39→20:38)
[2021-11-28] MEDS: ALBUMIN HUMAN 25%- 100 ML 100 ML IV SCH (08:45)
[2021-11-28] MEDS: ELIQUIS PO SCH ×2 (08:46→20:48)
[2021-11-28] MEDS: AMARYL TAB 4 MG PO SCH ×2 (08:46→20:48)
[2021-11-28] MEDS: LUVOX PO SCH ×2 (08:46→20:48)
[2021-11-28] MEDS: PROTONIX INJ 40 MG VIAL IVP SCH ×2 (08:47→20:49)
[2021-11-28] MEDS: GLUCOPHAGE PO SCH ×2 (08:47→20:49)
[2021-11-28] MEDS: LEVAQUIN PREMIX IV 500 MG 500 MG/100 ML BAG IV SCH (08:47)
[2021-11-28] MEDS: ROBITUSSIN DM PO SCH ×4 (08:47→20:48)
[2021-11-28] MEDS: FOLIC ACID TAB 1 MG PO SCH (08:47)
[2021-11-28] MEDS: VITAMIN D (1.25MG) PO SCH (08:48)
[2021-11-28] MEDS: VSL#3 PO SCH (08:48)
[2021-11-28] MEDS: PULMICORT NEB TX 0.5 MG NEB SCH ×2 (09:03→20:35)
--- NOTE | 2021-11-28 09:10 | PCM.PROG ---
Progress Note - Progress Note for Day of Date of Exam: 11/28/21 - Subjective Subjective: IS BEING TREATED FOR PNEUMONIA DUE TO COVID-19 AND HYPOXIA. HE HAS A PMH OF DM, HTN, BPH, MYASTHENIA GRAVIS, ARTHRITIS, [place], AND SLEEP APNEA. TODAY, HE IS ALERT, SITTING UP IN BED ON MORNING ROUNDS. HE CONTINUES WITH COMPLAINTS OF WEAKNESS AND SHORTNESS OF BREATH. HE DOES ADMIT TO SLIGHT IMPROVEMENT IN SYMPTOMS SINCE ADMISSION. HE IS REQUIRING HEATED HIGH FLOW OXYGEN AT 70% THIS MORNING. HIS SATURATIONS HAVE BEEN 90-100% THIS MORNING AND THROUGHOUT THE NIGHT. HE DID UTILIZE THE CPAP THROUGHOUT THE NIGHT. ON EXAMINATION, HEART IS REGULAR IN RATE AND RHYTHM. BILATERAL LUNGS NOTED WITH SCATTERED RHONCHI THROUGHOUT. ABDOMEN IS ROUND, SOFT, AND NON-TENDER WITH NORMAL BOWEL SOUNDS NOTED IN ALL QUADRANTS. HIS VITALS THIS MORNING ARE: 97.1-55-28-100%-158/70. LABS WERE OBTAINED. ABNORMAL LAB VALUES INCLUDE THE FOLLOWING: RBC 4.60, HGB 13, HCT 38.5, CHLORIDE 108, BUN 30, GLUCOSE 132, CRP 12.60, TOTAL PROTEIN 5.7, ALBUMIN 2.6. BLOOD CULTURES ARE PENDING. A CHEST XRAY WAS OBTAINED AND REVEALED: The cardiac and mediastinal contours appear stable. No significant change in bilateral airspace and interstitial opacities. No definite pleural effusion or pneumothorax. Soft tissue attenuation limits evaluation. HE IS CURRENTLY RECEIVING NORMAL SALINE AT KVO, ALBUMIN 25% IV DAILY, SOLU-MEDROL 80MG IV Q8H, LEVAQUIN 500MG IV DAILY, ASCORBIC ACID 500MG PO Q6H, LOVENOX, PULMICORT NEBS, XOPENEX NEBS, FLUVOXAMINE 50MG PO BID, IVERMECTIN 18MG PO Q72H, ZINC SULFATE 220MG PO DAILY, PROBIOTICS, ROBITUSSIN DM 10ML PO QID, TESSALON PERLES 200MG PO TID, TUSSIONEX 5ML PO Q12H PRN, AND THE POTASSIUM AND MAGNESIUM PROTOCOLS. OTHERWISE, WE WILL CONTINUE WITH CURRENT PLAN OF CARE AND WEAN OXYGEN TOLERATED. WE WILL FOLLOW UP WITH AM LABS AND CHEST XRAY AND CONTINUE TO MONITOR. TIME SPENT ON CLINICAL ASSESSMENT, REVIEWING LABS AND IMAGING, DECISION MAKING, AND DOCUMENTATION WAS GREATER THAN 45 MINUTES. - Past Medical Family Social History Past Med/Fam/Surg Hx: No changes since H&P Allergies: Allergies Iodinated Contrast Media [Iodinated Contrast- Oral and IV Dye] Allergy (Verified 12/23/19 14:22) Iodine and Iodide Containing Produc Allergy (Verified 12/23/19 14:22) Sulfa (Sulfonamide Antibiotics) [SULFA] Allergy (Verified 12/23/19 14:22) - Review of Systems ROS: No change since H&P - Vital Signs and I&O's Vital Signs: Temperature 97.1 F Pulse Rate [Radial] 73 Pulse Rate 50 Respiratory Rate 23 Blood Pressure [Right Arm] 122/60 Blood Pressure 119/56 O2 Sat by Pulse Oximetry 99 Intake and Output: Intake & Output 11/25/21 11/26/21 11/27/21 11/28/21 11:59 11:59 11:59 11:59 Intake Total 2894 / 2894 3418 / 3418 2746 / 2746 1973 Output Total 275 / 275 750 / 750 600 / 600 450 / 450 Balance 2619 / 2619 2668 / 2668 2146 / 2146 1524 / 1524 - Physical Exam Oriented: Normal Eyes: Normal Ear: Normal Nose: Normal Throat: Normal Respiratory: Generalized, Diminished, Rhonchi Cardiovascular: Bradycardia : Normal Auscultation: Bowel Sounds: Normal Tenderness: Normal Skin: Normal Musculoskeletal: Normal Psychiatric: Normal Mood Description: Calm Affect: Normal Speech Pattern: Clear, Appropriate - Laboratory and Diagnostics Result Diagrams: 11/28/21 04:32 11/28/21 04:32 Labs: 11/23/21 17:40 Blood Blood Culture - Preliminary 11/23/21 17:35 Blood Blood Culture - Preliminary Laboratory WBC 9.2 X10^3/uL (3.6-10.0) 11/28/21 04:32 RBC 4.60 X10^6/uL (4.7-6.0) L 11/28/21 04:32 Hgb 13.0 g/dL (13.5-18.0) L 11/28/21 04:32 Hct 38.5 % (42.0-54.0) L 11/28/21 04:32 MCV 83.7 fL (80.0-100.0) 11/28/21 04:32 MCH 28.2 pg (27.0-34.0) 11/28/21 04:32 MCHC 33.7 g/dL (33.0-35.0) 11/28/21 04:32 RDW 14.3 % (11.6-16.5) 11/28/21 04:32 Plt Count 223 X10^3/uL (150.0-450.0) 11/28/21 04:32 Plt Count Comment Adequate (ADEQUATE) 11/27/21 04:18 MPV 8.7 fL (7.4-11.0) 11/28/21 04:32 Neut % (Auto) 89.2 % (42.0-75.0) H 11/28/21 04:32 Lymph % (Auto) 7.9 % (21.0-51.0) L 11/28/21 04:32 [place] % (Auto) 2.7 % (0.0-13.0) 11/28/21 04:32 Eos % (Auto) 0.0 % (0.9-2.9) L 11/28/21 04:32 Baso % (Auto) 0.2 % (0.2-1.0) 11/28/21 04:32 Neut # (Auto) 8.2 x10^3/uL (2.2-4.8) H 11/28/21 04:32 Lymph # (Auto) 0.7 X10^3/uL (1.3-2.9) L 11/28/21 04:32 [place] # (Auto) 0.3 x10^3/uL (0.3-0.8) 11/28/21 04:32 Eos # (Auto) 0.0 x10^3/uL (0.0-0.2) 11/28/21 04:32 Baso # (Auto) 0.0 X10^3/uL (0.0-0.1) 11/28/21 04:32 Absolute Nucleated RBC 0.1 /100WBC 11/28/21 04:32 Total Counted 100 11/27/21 04:18 Neutrophils % (Manual) 80 % (39-76) H 11/27/21 04:18 Band Neutrophils % 1 % (0-10) 11/27/21 04:18 Lymphocytes % (Manual) 14 % (13-43) 11/27/21 04:18 Monocytes % (Manual) 5 % (4-9) 11/27/21 04:18 Plt Morphology Comment Normal (NORMAL) 11/27/21 04:18 RBC Morphology Normal (NORMAL) 11/27/21 04:18 D-Dimer 0.43 ug/ml (0.0-0.57) 11/23/21 17:35 Sample Site Lr 11/28/21 05:00 ABG pH 7.460 (7.35-7.45) H 11/28/21 05:00 ABG pCO2 35.0 mmHg (35.0-45.0) 11/28/21 05:00 ABG pO2 56.0 mmHg (80.0-100.0) L 11/28/21 05:00 ABG HCO3 24.9 mmol/L (22-26) 11/28/21 05:00 ABG O2 Saturation 90.0 % (90-100) 11/28/21 05:00 ABG Base Excess 1.3 mmol/L (-2.0-2.0) 11/28/21 05:00 Basilio Test Pos 11/28/21 05:00 A-a Gradient 399.0 mmHg 11/28/21 05:00 FiO2 70.0 11/28/21 05:00 Blood Gas Comments Heather well sw 11/28/21 05:00 Sodium 140 mmol/L (136-145) 11/28/21 04:32 Corrected Sodium 141 mmol/L (136-145) 11/28/21 04:32 Potassium 4.2 mmol/L (3.5-5.1) 11/28/21 04:32 Chloride 108 mmol/L (98-107) H 11/28/21 04:32 Carbon Dioxide 23.3 mmol/L (21-32) 11/28/21 04:32 BUN 30 mg/dL (7-18) H 11/28/21 04:32 Creatinine 1.17 mg/dL (0.70-1.30) 11/28/21 04:32 Est GFR (MDRD) Af Amer > 60 (>60) 11/28/21 04:32 Est GFR (MDRD) Non-Af > 60 (>60) 11/28/21 04:32 Glucose 132 mg/dL (65-99) H 11/28/21 04:32 POC Glucose (mg/dL) 123 mg/dL (65-99) H 11/28/21 05:17 Calcium 8.6 mg/dL (8.5-10.1) 11/28/21 04:32 Corrected Calcium 9.7 mg/dL (8.5-10.1) 11/28/21 04:32 Magnesium 2.2 mg/dL (1.7-2.9) 11/25/21 04:07 Ferritin 333 ng/mL (26-388) 11/23/21 17:35 Total Bilirubin 0.40 mg/dL (0.2-1.0) 11/28/21 04:32 AST 29 Units/L (15-37) 11/28/21 04:32 ALT 28 Units/L (12-78) 11/28/21 04:32 Alkaline Phosphatase 55 Units/L (46-116) 11/28/21 04:32 C-Reactive Protein 12.60 mg/L (0-3.0) H 11/28/21 04:32 B-Natriuretic Peptide 198 pg/mL (0-79) H 11/27/21 04:18 Total Protein 5.7 g/dL (6.4-8.2) L 11/28/21 04:32 Albumin 2.6 g/dL (3.4-5.0) L 11/28/21 04:32 Globulin 3.1 g/dL (2.5-4.5) 11/28/21 04:32 Albumin/Globulin Ratio 0.8 Ratio (1.1-2.1) L 11/28/21 04:32 - Plan (1) Pneumonia due to COVID-19 virus Status: Acute Plan: supplemental oxygen, iv antibiotics, iv steroids, remdesivir, albumin, neb tx, immune supplements (2) Hypoxia Status: Acute (3) Diabetes mellitus Status: Chronic Qualifiers: Diabetes mellitus type: type 2 Diabetes mellitus skilled nursing insulin use: with vermin exterminator use Diabetes mellitus complication status: with hyperglycemia Qualified Code(s): E11.65 - Type 2 diabetes mellitus with hyperglycemia; Z79.4 - vermin exterminator (current) use of insulin (4) Essential hypertension Status: Chronic (5) Prostatic hypertrophy Status: Chronic (6) Myasthenia gravis Status: Chronic
[2021-11-28] MEDS: NS 1/2 1,000 ML IV 1,000 ML IV SCH (12:08)
[2021-11-28] MEDS: SNACK - Diabetic Appropriate PO SCH (20:00)
[2021-11-29] MEDS: RESTORIL CAP 15 MG PO PRN (02:16)
[2021-11-29] MEDS: NS 1/2 1,000 ML IV 1,000 ML IV SCH (03:22)
[2021-11-29] MEDS: VITAMIN C PO SCH ×4 (03:25→22:00)
[2021-11-29 05:19] LABS: ABG ALLEN TEST POS; ABG BASE EXCESS 4.2 mmol/L (-2.0-2.0); ABG HCO3 28.4 mmol/L (22-26)
[2021-11-29 05:35] LABS: BASOPHILS % (AUTO) 0.2 % (0.2-1.0); HEMATOCRIT 40.6 % (42.0-54.0); HEMOGLOBIN 13.5 g/dL (13.5-18.0); LYMPHOCYTES # (AUTO) 0.7 X10^3/uL (1.3-2.9); LYMPHOCYTES % (AUTO) 6.6 % (21.0-51.0); MEAN CORPUSCULAR HEMOGLOBIN 27.9 pg (27.0-34.0); MEAN CORPUSCULAR HGB CONC 33.4 g/dL (33.0-35.0); MEAN CORPUSCULAR VOLUME 83.7 fL (80.0-100.0); MEAN PLATELET VOLUME 8.8 fL (7.4-11.0); MONOCYTES # (AUTO) 0.3 x10^3/uL (0.3-0.8); MONOCYTES % (AUTO) 3.1 % (0.0-13.0); NEUTROPHILS # (AUTO) 8.9 x10^3/uL (2.2-4.8); NEUTROPHILS % (AUTO) 90.1 % (42.0-75.0); RED BLOOD COUNT 4.85 X10^6/uL (4.7-6.0); RED CELL DISTRIBUTION WIDTH 14.6 % (11.6-16.5); WHITE BLOOD COUNT 9.9 X10^3/uL (3.6-10.0)
[2021-11-29] MEDS: XOPENEX 1.25 MG/3 ML NEBULE NEB SCH ×4 (05:35→20:40)
[2021-11-29 05:46] LABS: ALANINE AMINOTRANSFERASE 27 Units/L (12-78); ALBUMIN 2.9 g/dL (3.4-5.0); ALKALINE PHOSPHATASE 64 Units/L (46-116); ASPARTATE AMINO TRANSFERASE 29 Units/L (15-37); BLOOD UREA NITROGEN 25 mg/dL (7-18); CALCIUM 8.4 mg/dL (8.5-10.1); CARBON DIOXIDE 25.9 mmol/L (21-32); CHLORIDE 105 mmol/L (98-107); COR CA(FOR HYPOALB) 9.3 mg/dL (8.5-10.1); COR NA(FOR HYPERGLY) 141 mmol/L (136-145); CREATININE 1.16 mg/dL (0.70-1.30); SODIUM 141 mmol/L (136-145); TOTAL PROTEIN 5.9 g/dL (6.4-8.2); eGFR NON BLACK RACES > 60 (>60)
[2021-11-29] MEDS: NEURONTIN CAP 300 MG PO SCH ×3 (06:05→22:00)
[2021-11-29] MEDS: PYRIDOSTIGMINE BROMIDE 60 MG PO SCH ×3 (06:05→22:00)
[2021-11-29] MEDS: SOLU-Medrol 125 MG VIAL IVP SCH ×3 (06:06→22:00)
[2021-11-29 06:07] LABS: BAND NEUTROPHILS % 1 % (0-10)
[2021-11-29] MEDS: TESSALON PERLES PO SCH ×3 (06:07→22:00)
[2021-11-29 06:08] LABS: PLATELET MORPHOLOGY COMMENT NORMAL (NORMAL)
--- NOTE | 2021-11-29 06:21 | RAD ---
HISTORYCOVID-19STUDYAP chestCOMPARISONJanuary 2021FINDINGSThere is no significant change in appearance of heart or lungs. Similar extent and distribution of bilateral pulmonary infiltrates. No additional consolidation, complicating pneumothorax or developing pleural effusion.IMPRESSIONNo change in appearance of bilateral pneumonia.Electronically signed by: SELENA FERNANDO (Nov 29, 2021 06:19:29)
[2021-11-29] MEDS: PULMICORT NEB TX 0.5 MG NEB SCH ×2 (08:05→20:40)
[2021-11-29] MEDS ORDERED: GLUCOPHAGE ONE ×2 (08:23→21:36)
[2021-11-29] MEDS: ALBUMIN HUMAN 25%- 100 ML 100 ML IV SCH (08:35)
[2021-11-29] MEDS: LUVOX PO SCH ×2 (08:36→22:00)
[2021-11-29] MEDS: AMARYL TAB 4 MG PO SCH ×2 (08:36→22:00)
[2021-11-29] MEDS: ELIQUIS PO SCH ×2 (08:36→22:00)
[2021-11-29] MEDS: PROTONIX INJ 40 MG VIAL IVP SCH ×2 (08:37→22:00)
[2021-11-29] MEDS: GLUCOPHAGE PO SCH ×2 (08:37→22:00)
[2021-11-29] MEDS: LEVAQUIN PREMIX IV 500 MG 500 MG/100 ML BAG IV SCH (08:37)
[2021-11-29] MEDS: FOLIC ACID TAB 1 MG PO SCH (08:37)
[2021-11-29] MEDS: VITAMIN D (1.25MG) PO SCH (08:38)
[2021-11-29] MEDS: ROBITUSSIN DM PO SCH ×4 (08:38→22:00)
[2021-11-29] MEDS: VSL#3 PO SCH (08:38)
--- NOTE | 2021-11-29 10:45 | PCM.PROG ---
Progress Note - Progress Note for Day of Date of Exam: 11/29/21 - Subjective Subjective: IS BEING TREATED FOR PNEUMONIA DUE TO COVID-19 AND HYPOXIA. HE HAS A PMH OF DM, HTN, BPH, MYASTHENIA GRAVIS, ARTHRITIS, [place], AND SLEEP APNEA. TODAY, HE IS ALERT, SITTING UP IN BED ON MORNING ROUNDS. HE CONTINUES WITH COMPLAINTS OF WEAKNESS AND SHORTNESS OF BREATH AT TIMES. HE DOES ADMIT TO SLIGHT IMPROVEMENT IN SYMPTOMS SINCE WE SAW HIM YESTERDAY. HE IS REQUIRING HEATED HIGH FLOW OXYGEN AT 60% THIS MORNING, WHICH IS LOWER THAN YESTERDAY. HE DID UTILIZE THE CPAP THROUGHOUT THE NIGHT. ON EXAMINATION, HEART IS REGULAR IN RATE AND RHYTHM. BILATERAL LUNGS NOTED WITH SCATTERED RHONCHI THROUGHOUT. ABDOMEN IS ROUND, SOFT, AND NON-TENDER WITH NORMAL BOWEL SOUNDS NOTED IN ALL QUADRANTS. HIS VITALS THIS MORNING ARE: 998.4-50-25-90%-140/67. LABS WERE OBTAINED. ABNORMAL LAB VALUES INCLUDE THE FOLLOWING: HCT 40.6, BUN 25, GLUCOSE 114, CALCIUM 8.4, CRP 6.90, BNP 544, TOTAL PROTEIN 5.9, ALBUMIN 2.9. A CHEST XRAY WAS OBTAINED AND REVEALED: No change in appearance of bilateral pneumonia. HE IS CURRENTLY RECEIVING NORMAL SALINE AT KVO, ALBUMIN 25% IV DAILY, SOLU-MEDROL 80MG IV Q8H, LEVAQUIN 500MG IV DAILY, ASCORBIC ACID 500MG PO Q6H, LOVENOX, PULMICORT NEBS, XOPENEX NEBS, FLUVOXAMINE 50MG PO BID, IVERMECTIN 18MG PO Q72H, ZINC SULFATE 220MG PO DAILY, PROBIOTICS, ROBITUSSIN DM 10ML PO QID, TESSALON PERLES 200MG PO TID, TUSSIONEX 5ML PO Q12H PRN, AND THE POTASSIUM AND MAGNESIUM PROTOCOLS. OTHERWISE, WE WILL CONTINUE WITH CURRENT PLAN OF CARE AND WEAN OXYGEN TOLERATED. WE WILL FOLLOW UP WITH AM LABS AND CHEST XRAY AND CONTINUE TO MONITOR. TIME SPENT ON CLINICAL ASSESSMENT, REVIEWING LABS AND IMAGING, DECISION MAKING, AND DOCUMENTATION WAS GREATER THAN 45 MINUTES. - Past Medical Family Social History Past Med/Fam/Surg Hx: No changes since H&P Allergies: Allergies Iodinated Contrast Media [Iodinated Contrast- Oral and IV Dye] Allergy (Verified 12/23/19 14:22) Iodine and Iodide Containing Produc Allergy (Verified 12/23/19 14:22) Sulfa (Sulfonamide Antibiotics) [SULFA] Allergy (Verified 12/23/19 14:22) - Review of Systems ROS: No change since H&P - Vital Signs and I&O's Vital Signs: Temperature 98.4 F Pulse Rate [Radial] 73 Pulse Rate 68 Respiratory Rate 17 Blood Pressure [Right Arm] 122/60 Blood Pressure 164/77 O2 Sat by Pulse Oximetry 85 Intake and Output: Intake & Output 11/26/21 11/27/21 11/28/21 11/29/21 11:59 11:59 11:59 11:59 Intake Total 3418 / 3418 2746 / 2746 1973 / 1973 1797 / 1797 Output Total 750 / 750 600 / 600 450 / 450 1999 / 1999 Balance 2668 / 2668 2146 / 2146 1524 / 1524 -203 / - - Physical Exam Oriented: Normal Eyes: Normal Ear: Normal Nose: Normal Throat: Normal Respiratory: Generalized, Diminished, Rhonchi Cardiovascular: Bradycardia : Normal Auscultation: Bowel Sounds: Normal Palpation: Normal Tenderness: Normal Skin: Normal Musculoskeletal: Normal Psychiatric: Normal Mood Description: Calm Affect: Normal Speech Pattern: Clear, Appropriate - Laboratory and Diagnostics Result Diagrams: 11/29/21 04:23 11/29/21 04:23 Labs: 11/23/21 17:40 Blood Blood Culture - Final 11/23/21 17:35 Blood Blood Culture - Final Laboratory WBC 9.9 X10^3/uL (3.6-10.0) 11/29/21 04:23 RBC 4.85 X10^6/uL (4.7-6.0) 11/29/21 04:23 Hgb 13.5 g/dL (13.5-18.0) 11/29/21 04:23 Hct 40.6 % (42.0-54.0) L 11/29/21 04:23 MCV 83.7 fL (80.0-100.0) 11/29/21 04:23 MCH 27.9 pg (27.0-34.0) 11/29/21 04:23 MCHC 33.4 g/dL (33.0-35.0) 11/29/21 04:23 RDW 14.6 % (11.6-16.5) 11/29/21 04:23 Plt Count 234 X10^3/uL (150.0-450.0) 11/29/21 04:23 Plt Count Comment Adequate (ADEQUATE) 11/29/21 04:23 MPV 8.8 fL (7.4-11.0) 11/29/21 04:23 Neut % (Auto) 90.1 % (42.0-75.0) H 11/29/21 04:23 Lymph % (Auto) 6.6 % (21.0-51.0) L 11/29/21 04:23 [place] % (Auto) 3.1 % (0.0-13.0) 11/29/21 04:23 Eos % (Auto) 0.0 % (0.9-2.9) L 11/29/21 04:23 Baso % (Auto) 0.2 % (0.2-1.0) 11/29/21 04:23 Neut # (Auto) 8.9 x10^3/uL (2.2-4.8) H 11/29/21 04:23 Lymph # (Auto) 0.7 X10^3/uL (1.3-2.9) L 11/29/21 04:23 [place] # (Auto) 0.3 x10^3/uL (0.3-0.8) 11/29/21 04:23 Eos # (Auto) 0.0 x10^3/uL (0.0-0.2) 11/29/21 04:23 Baso # (Auto) 0.0 X10^3/uL (0.0-0.1) 11/29/21 04:23 Absolute Nucleated RBC 0.0 /100WBC 11/29/21 04:23 Total Counted 100 11/29/21 04:23 Neutrophils % (Manual) 88 % (39-76) H 11/29/21 04:23 Band Neutrophils % 1 % (0-10) 11/29/21 04:23 Lymphocytes % (Manual) 8 % (13-43) L 11/29/21 04:23 Monocytes % (Manual) 3 % (4-9) L 11/29/21 04:23 Plt Morphology Comment Normal (NORMAL) 11/29/21 04:23 RBC Morphology Normal (NORMAL) 11/29/21 04:23 D-Dimer 0.43 ug/ml (0.0-0.57) 11/23/21 17:35 Sample Site Rrad 11/29/21 05:15 ABG pH 7.460 (7.35-7.45) H 11/29/21 05:15 ABG pCO2 40.0 mmHg (35.0-45.0) 11/29/21 05:15 ABG pO2 82.0 mmHg (80.0-100.0) 11/29/21 05:15 ABG HCO3 28.4 mmol/L (22-26) H 11/29/21 05:15 ABG O2 Saturation 97.0 % (90-100) 11/29/21 05:15 ABG Base Excess 4.2 mmol/L (-2.0-2.0) H 11/29/21 05:15 Basilio Test Pos 11/29/21 05:15 A-a Gradient 296.0 mmHg 11/29/21 05:15 FiO2 60.0 11/29/21 05:15 Blood Gas Comments Heather well ms 11/29/21 05:15 Sodium 141 mmol/L (136-145) 11/29/21 04:23 Corrected Sodium 141 mmol/L (136-145) 11/29/21 04:23 Potassium 4.0 mmol/L (3.5-5.1) 11/29/21 04:23 Chloride 105 mmol/L (98-107) 11/29/21 04:23 Carbon Dioxide 25.9 mmol/L (21-32) 11/29/21 04:23 BUN 25 mg/dL (7-18) H 11/29/21 04:23 Creatinine 1.16 mg/dL (0.70-1.30) 11/29/21 04:23 Est GFR (MDRD) Af Amer > 60 (>60) 11/29/21 04:23 Est GFR (MDRD) Non-Af > 60 (>60) 11/29/21 04:23 Glucose 114 mg/dL (65-99) H 11/29/21 04:23 POC Glucose (mg/dL) 111 mg/dL (65-99) H 11/29/21 05:20 Calcium 8.4 mg/dL (8.5-10.1) L 11/29/21 04:23 Corrected Calcium 9.3 mg/dL (8.5-10.1) 11/29/21 04:23 Magnesium 2.2 mg/dL (1.7-2.9) 11/25/21 04:07 Ferritin 333 ng/mL (26-388) 11/23/21 17:35 Total Bilirubin 0.50 mg/dL (0.2-1.0) 11/29/21 04:23 AST 29 Units/L (15-37) 11/29/21 04:23 ALT 27 Units/L (12-78) 11/29/21 04:23 Alkaline Phosphatase 64 Units/L (46-116) 11/29/21 04:23 C-Reactive Protein 6.90 mg/L (0-3.0) H 11/29/21 04:23 B-Natriuretic Peptide 544 pg/mL (0-79) H* 11/29/21 04:23 Total Protein 5.9 g/dL (6.4-8.2) L 11/29/21 04:23 Albumin 2.9 g/dL (3.4-5.0) L 11/29/21 04:23 Globulin 3.0 g/dL (2.5-4.5) 11/29/21 04:23 Albumin/Globulin Ratio 1.0 Ratio (1.1-2.1) L 11/29/21 04:23 - Plan (1) Pneumonia due to COVID-19 virus Status: Acute Plan: supplemental oxygen, iv antibiotics, iv steroids, remdesivir, albumin, neb tx, immune supplements (2) Hypoxia Status: Acute (3) Diabetes mellitus Status: Chronic Qualifiers: Diabetes mellitus type: type 2 Diabetes mellitus fpc insulin use: wi fpc use Diabetes mellitus complication status: with hyperglycemia Qualified Code(s): E11.65 - Type 2 diabetes mellitus with hyperglycemia; Z79.4 - [facility] (current) use of insulin (4) Essential hypertension Status: Chronic (5) Prostatic hypertrophy Status: Chronic (6) Myasthenia gravis Status: Chronic
[2021-11-29] MEDS: SNACK - Diabetic Appropriate PO SCH (22:00)
[2021-11-30] MEDS: VITAMIN C PO SCH ×4 (03:00→20:20)
[2021-11-30 05:07] LABS: BASOPHILS % (AUTO) 0.2 % (0.2-1.0); EOSINOPHILS % (AUTO) 0.1 % (0.9-2.9); HEMOGLOBIN 13.2 g/dL (13.5-18.0); LYMPHOCYTES # (AUTO) 0.5 X10^3/uL (1.3-2.9); LYMPHOCYTES % (AUTO) 6.6 % (21.0-51.0); MEAN CORPUSCULAR HGB CONC 33.8 g/dL (33.0-35.0); MEAN CORPUSCULAR VOLUME 82.8 fL (80.0-100.0); MEAN PLATELET VOLUME 8.4 fL (7.4-11.0); MONOCYTES # (AUTO) 0.2 x10^3/uL (0.3-0.8); MONOCYTES % (AUTO) 2.4 % (0.0-13.0); NEUTROPHILS # (AUTO) 7.5 x10^3/uL (2.2-4.8); NEUTROPHILS % (AUTO) 90.7 % (42.0-75.0); RED BLOOD COUNT 4.71 X10^6/uL (4.7-6.0); RED CELL DISTRIBUTION WIDTH 14.4 % (11.6-16.5); WHITE BLOOD COUNT 8.3 X10^3/uL (3.6-10.0)
[2021-11-30 05:15] LABS: ALANINE AMINOTRANSFERASE 28 Units/L (12-78); ALBUMIN 3.1 g/dL (3.4-5.0); ALKALINE PHOSPHATASE 62 Units/L (46-116); ASPARTATE AMINO TRANSFERASE 26 Units/L (15-37); BLOOD UREA NITROGEN 26 mg/dL (7-18); CALCIUM 8.4 mg/dL (8.5-10.1); CARBON DIOXIDE 27.3 mmol/L (21-32); CHLORIDE 103 mmol/L (98-107); COR CA(FOR HYPOALB) 9.1 mg/dL (8.5-10.1); COR NA(FOR HYPERGLY) 143 mmol/L (136-145); CREATININE 1.23 mg/dL (0.70-1.30); SODIUM 141 mmol/L (136-145); TOTAL PROTEIN 5.8 g/dL (6.4-8.2); eGFR NON BLACK RACES > 60 (>60)
[2021-11-30] MEDS: PYRIDOSTIGMINE BROMIDE 60 MG PO SCH ×3 (05:30→21:12)
[2021-11-30] MEDS: SOLU-Medrol 125 MG VIAL IVP SCH ×3 (05:30→21:12)
[2021-11-30] MEDS: NEURONTIN CAP 300 MG PO SCH ×3 (05:30→21:12)
[2021-11-30] MEDS: TESSALON PERLES PO SCH ×3 (05:30→21:12)
[2021-11-30 05:48] LABS: PLATELET MORPHOLOGY COMMENT NORMAL (NORMAL)
[2021-11-30 06:08] LABS: ABG BASE EXCESS 3.5 mmol/L (-2.0-2.0); ABG HCO3 26.5 mmol/L (22-26)
[2021-11-30 06:09] LABS: ABG ALLEN TEST POS
[2021-11-30] MEDS: XOPENEX 1.25 MG/3 ML NEBULE NEB SCH ×3 (06:11→20:45)
--- NOTE | 2021-11-30 07:35 | RAD ---
HISTORYCOVID+STUDYCHEST, 1 VIEWCOMPARISONOne day prior.TECHNIQUEAP view of the chestFINDINGSCardiac and mediastinal contours are within normal limits. No significant change in bilateral airspace and interstitial opacities. No definite pleural effusion or pneumothorax. Soft tissue attenuation limits evaluation.IMPRESSIONNo significant change.Electronically signed by: Sharif Jimenez (Nov 30, 2021 07:34:42)
[2021-11-30] MEDS: PULMICORT NEB TX 0.5 MG NEB SCH ×2 (08:20→20:45)
--- NOTE | 2021-11-30 08:48 | PCM.PROG ---
Progress Note - Progress Note for Day of Date of Exam: 11/30/21 - Subjective Subjective: IS BEING TREATED FOR PNEUMONIA DUE TO COVID-19 AND HYPOXIA. HE HAS A PMH OF DM, HTN, BPH, MYASTHENIA GRAVIS, ARTHRITIS, [place], AND SLEEP APNEA. TODAY, HE IS ALERT, SITTING UP IN BED ON MORNING ROUNDS. HE CONTINUES WITH COMPLAINTS OF WEAKNESS AND SHORTNESS OF BREATH AT TIMES. HE CONTINUES TO REPORT SLIGHT IMPROVEMENT SINCE PREVIOUS DAY. HE IS REQUIRING HEATED HIGH FLOW OXYGEN AT 50% THIS MORNING, WHICH IS LOWER THAN YESTERDAY. HE DID UTILIZE THE CPAP THROUGHOUT THE NIGHT. ON EXAMINATION, HEART IS REGULAR IN RATE AND RHYTHM. BILATERAL LUNGS NOTED WITH SCATTERED RHONCHI THROUGHOUT. ABDOMEN IS ROUND, SOFT, AND NON-TENDER WITH NORMAL BOWEL SOUNDS NOTED IN ALL QUADRANTS. HIS VITALS THIS MORNING ARE: 98.5-53-21-94%-136/68. LABS WERE OBTAINED. ABNORMAL LAB VALUES INCLUDE THE FOLLOWING: HGB 13.2, HCT 39.0, BUN 26, GLUCOSE 169, CALCIUM 8.4, CRP 3.60, BNP 225, TOTAL PRTOEIN 5.8, ALBUMIN 3.1. A CHEST XRAY WAS OBTAINED AND REVEALED: NO SIGNIFICANT CHANGE. HE IS CURRENTLY RECEIVING NORMAL SALINE AT KVO, ALBUMIN 25% IV DAILY, SOLU-MEDROL 80MG IV Q8H, LEVAQUIN 500MG IV DAILY, ASCORBIC ACID 500MG PO Q6H, LOVENOX, PULMICORT NEBS, XOPENEX NEBS, FLUVOXAMINE 50MG PO BID, ZINC SULFATE 220MG PO DAILY, PROBIOTICS, ROBITUSSIN DM 10ML PO QID, TESSALON PERLES 200MG PO TID, TUSSIONEX 5ML PO Q12H PRN, AND THE POTASSIUM AND MAGNESIUM PROTOCOLS. OTHERWISE, WE WILL CONTINUE WITH CURRENT PLAN OF CARE AND WEAN OXYGEN TOLERATED. WE WILL FOLLOW UP WITH AM LABS AND CHEST XRAY AND CONTINUE TO MONITOR. TIME SPENT ON CLINICAL ASSESSMENT, REVIEWING LABS AND IMAGING, DECISION MAKING, AND DOCUMENTATION WAS GREATER THAN 45 MINUTES. - Past Medical Family Social History Past Med/Fam/Surg Hx: No changes since H&P Allergies: Allergies Iodinated Contrast Media [Iodinated Contrast- Oral and IV Dye] Allergy (Verified 12/23/19 14:22) Iodine and Iodide Containing Produc Allergy (Verified 12/23/19 14:22) Sulfa (Sulfonamide Antibiotics) [SULFA] Allergy (Verified 12/23/19 14:22) - Review of Systems ROS: No change since H&P - Vital Signs and I&O's Vital Signs: Temperature 98.5 F Pulse Rate [Radial] 73 Pulse Rate 53 Respiratory Rate 21 Blood Pressure [Right Arm] 122/60 Blood Pressure 136/68 O2 Sat by Pulse Oximetry 94 Intake and Output: Intake & Output 11/27/21 11/28/21 11/29/21 11/30/21 11:59 11:59 11:59 11:59 Intake Total 2746 / 2746 1973 / 1973 1797 / 1797 1608 / 1608 Output Total 600 / 600 450 / 450 1999 / 1999 950 / 950 Balance 2146 / 2146 1524 / 1524 -203 / -203 658 / 658 - Physical Exam Oriented: Normal Eyes: Normal Ear: Normal Nose: Normal Throat: Normal Respiratory: Generalized, Diminished, Rhonchi Cardiovascular: Bradycardia : Normal Auscultation: Bowel Sounds: Normal Palpation: Normal Tenderness: Normal Skin: Normal Musculoskeletal: Normal Psychiatric: Normal Mood Description: Calm Affect: Normal Speech Pattern: Clear, Appropriate - Laboratory and Diagnostics Result Diagrams: 11/30/21 04:18 11/30/21 04:18 Labs: 11/23/21 17:40 Blood Blood Culture - Final 11/23/21 17:35 Blood Blood Culture - Final Laboratory WBC 8.3 X10^3/uL (3.6-10.0) 11/30/21 04:18 RBC 4.71 X10^6/uL (4.7-6.0) 11/30/21 04:18 Hgb 13.2 g/dL (13.5-18.0) L 11/30/21 04:18 Hct 39.0 % (42.0-54.0) L 11/30/21 04:18 MCV 82.8 fL (80.0-100.0) 11/30/21 04:18 MCH 28.0 pg (27.0-34.0) 11/30/21 04:18 MCHC 33.8 g/dL (33.0-35.0) 11/30/21 04:18 RDW 14.4 % (11.6-16.5) 11/30/21 04:18 Plt Count 232 X10^3/uL (150.0-450.0) 11/30/21 04:18 Plt Count Comment Adequate (ADEQUATE) 11/30/21 04:18 MPV 8.4 fL (7.4-11.0) 11/30/21 04:18 Neut % (Auto) 90.7 % (42.0-75.0) H 11/30/21 04:18 Lymph % (Auto) 6.6 % (21.0-51.0) L 11/30/21 04:18 [place] % (Auto) 2.4 % (0.0-13.0) 11/30/21 04:18 Eos % (Auto) 0.1 % (0.9-2.9) L 11/30/21 04:18 Baso % (Auto) 0.2 % (0.2-1.0) 11/30/21 04:18 Neut # (Auto) 7.5 x10^3/uL (2.2-4.8) H 11/30/21 04:18 Lymph # (Auto) 0.5 X10^3/uL (1.3-2.9) L 11/30/21 04:18 [place] # (Auto) 0.2 x10^3/uL (0.3-0.8) L 11/30/21 04:18 Eos # (Auto) 0.0 x10^3/uL (0.0-0.2) 11/30/21 04:18 Baso # (Auto) 0.0 X10^3/uL (0.0-0.1) 11/30/21 04:18 Absolute Nucleated RBC 0.3 /100WBC 11/30/21 04:18 Total Counted 100 11/30/21 04:18 Neutrophils % (Manual) 88 % (39-76) H 11/30/21 04:18 Band Neutrophils % 1 % (0-10) 11/29/21 04:23 Lymphocytes % (Manual) 9 % (13-43) L 11/30/21 04:18 Monocytes % (Manual) 3 % (4-9) L 11/30/21 04:18 Plt Morphology Comment Normal (NORMAL) 11/30/21 04:18 RBC Morphology Normal (NORMAL) 11/30/21 04:18 D-Dimer 0.43 ug/ml (0.0-0.57) 11/23/21 17:35 Sample Site Lrad 11/30/21 06:08 ABG pH 7.500 (7.35-7.45) H 11/30/21 06:08 ABG pCO2 34.0 mmHg (35.0-45.0) L 11/30/21 06:08 ABG pO2 109.0 mmHg (80.0-100.0) H 11/30/21 06:08 ABG HCO3 26.5 mmol/L (22-26) H 11/30/21 06:08 ABG O2 Saturation 99.0 % (90-100) 11/30/21 06:08 ABG Base Excess 3.5 mmol/L (-2.0-2.0) H 11/30/21 06:08 Basilio Test Pos 11/30/21 06:08 A-a Gradient 205.0 mmHg 11/30/21 06:08 FiO2 50.0 11/30/21 06:08 Blood Gas Comments [facility] 11/30/21 06:08 Sodium 141 mmol/L (136-145) 11/30/21 04:18 Corrected Sodium 143 mmol/L (136-145) 11/30/21 04:18 Potassium 3.8 mmol/L (3.5-5.1) 11/30/21 04:18 Chloride 103 mmol/L (98-107) 11/30/21 04:18 Carbon Dioxide 27.3 mmol/L (21-32) 11/30/21 04:18 BUN 26 mg/dL (7-18) H 11/30/21 04:18 Creatinine 1.23 mg/dL (0.70-1.30) 11/30/21 04:18 Est GFR (MDRD) Af Amer > 60 (>60) 11/30/21 04:18 Est GFR (MDRD) Non-Af > 60 (>60) 11/30/21 04:18 Glucose 169 mg/dL (65-99) H 11/30/21 04:18 POC Glucose (mg/dL) 180 mg/dL (65-99) H 11/29/21 21:43 Calcium 8.4 mg/dL (8.5-10.1) L 11/30/21 04:18 Corrected Calcium 9.1 mg/dL (8.5-10.1) 11/30/21 04:18 Magnesium 2.2 mg/dL (1.7-2.9) 11/25/21 04:07 Ferritin 333 ng/mL (26-388) 11/23/21 17:35 Total Bilirubin 0.60 mg/dL (0.2-1.0) 11/30/21 04:18 AST 26 Units/L (15-37) 11/30/21 04:18 ALT 28 Units/L (12-78) 11/30/21 04:18 Alkaline Phosphatase 62 Units/L (46-116) 11/30/21 04:18 C-Reactive Protein 3.60 mg/L (0-3.0) H 11/30/21 04:18 B-Natriuretic Peptide 225 pg/mL (0-79) H 11/30/21 04:18 Total Protein 5.8 g/dL (6.4-8.2) L 11/30/21 04:18 Albumin 3.1 g/dL (3.4-5.0) L 11/30/21 04:18 Globulin 2.7 g/dL (2.5-4.5) 11/30/21 04:18 Albumin/Globulin Ratio 1.1 Ratio (1.1-2.1) 11/30/21 04:18 - Plan (1) Pneumonia due to COVID-19 virus Status: Acute Plan: supplemental oxygen, iv antibiotics, iv steroids, remdesivir, albumin, neb tx, immune supplements (2) Hypoxia Status: Acute (3) Diabetes mellitus Status: Chronic Qualifiers: Diabetes mellitus type: type 2 Diabetes mellitus snf insulin use: with long term care social worker use Diabetes mellitus complication status: with hyperglycemia Qualified Code(s): E11.65 - Type 2 diabetes mellitus with hyperglycemia; Z79.4 - [facility] (current) use of insulin (4) Essential hypertension Status: Chronic (5) Prostatic hypertrophy Status: Chronic (6) Myasthenia gravis Status: Chronic
[2021-11-30] MEDS: GLUCOPHAGE PO SCH ×2 (08:50→20:21)
[2021-11-30] MEDS: VSL#3 PO SCH (08:50)
[2021-11-30] MEDS ORDERED: GLUCOPHAGE ONE ×2 (09:16→19:33)
[2021-11-30] MEDS: AMARYL TAB 4 MG PO SCH ×2 (09:29→20:20)
[2021-11-30] MEDS: FOLIC ACID TAB 1 MG PO SCH (09:29)
[2021-11-30] MEDS: PROTONIX INJ 40 MG VIAL IVP SCH ×2 (09:29→20:22)
[2021-11-30] MEDS: ROBITUSSIN DM PO SCH ×4 (09:29→20:38)
[2021-11-30] MEDS: ELIQUIS PO SCH ×2 (09:29→20:21)
[2021-11-30] MEDS: LUVOX PO SCH ×2 (09:29→20:21)
[2021-11-30] MEDS: ALBUMIN HUMAN 25%- 100 ML 100 ML IV SCH (09:31)
[2021-11-30] MEDS: LEVAQUIN PREMIX IV 500 MG 500 MG/100 ML BAG IV SCH (09:31)
[2021-11-30 15:47] VITALS: BMI 28.4
[2021-11-30] MEDS: K-DUR TAB 20 MEQ PO PRN (20:20)
[2021-11-30] MEDS: SNACK - Diabetic Appropriate PO SCH (20:21)
[2021-11-30] MEDS: TUSSIONEX PENNKINETIC SUSP PO PRN (20:33)
[2021-11-30] MEDS: RESTORIL CAP 15 MG PO PRN (20:33)
[2021-12-01] MEDS: VITAMIN C PO SCH ×3 (03:10→15:20)
[2021-12-01 05:38] LABS: BASOPHILS % (AUTO) 0.3 % (0.2-1.0); HEMOGLOBIN 13.5 g/dL (13.5-18.0); LYMPHOCYTES # (AUTO) 0.7 X10^3/uL (1.3-2.9); LYMPHOCYTES % (AUTO) 6.4 % (21.0-51.0); MEAN CORPUSCULAR HGB CONC 33.7 g/dL (33.0-35.0); MEAN CORPUSCULAR VOLUME 83.3 fL (80.0-100.0); MEAN PLATELET VOLUME 8.5 fL (7.4-11.0); MONOCYTES # (AUTO) 0.3 x10^3/uL (0.3-0.8); MONOCYTES % (AUTO) 2.6 % (0.0-13.0); NEUTROPHILS # (AUTO) 10.3 x10^3/uL (2.2-4.8); NEUTROPHILS % (AUTO) 90.7 % (42.0-75.0); RED BLOOD COUNT 4.81 X10^6/uL (4.7-6.0); RED CELL DISTRIBUTION WIDTH 14.6 % (11.6-16.5); WHITE BLOOD COUNT 11.4 X10^3/uL (3.6-10.0)
[2021-12-01 05:52] LABS: ALANINE AMINOTRANSFERASE 29 Units/L (12-78); ALBUMIN 3.4 g/dL (3.4-5.0); ALKALINE PHOSPHATASE 60 Units/L (46-116); ASPARTATE AMINO TRANSFERASE 18 Units/L (15-37); BLOOD UREA NITROGEN 29 mg/dL (7-18); CALCIUM 8.7 mg/dL (8.5-10.1); CHLORIDE 103 mmol/L (98-107); COR NA(FOR HYPERGLY) 142 mmol/L (136-145); CREATININE 1.29 mg/dL (0.70-1.30); SODIUM 140 mmol/L (136-145); eGFR NON BLACK RACES 58 (>60)
[2021-12-01] MEDS: SOLU-Medrol 125 MG VIAL IVP SCH ×2 (05:58→14:30)
[2021-12-01] MEDS: NEURONTIN CAP 300 MG PO SCH ×2 (05:58→15:00)
[2021-12-01] MEDS: PYRIDOSTIGMINE BROMIDE 60 MG PO SCH ×2 (05:58→14:30)
[2021-12-01] MEDS: TESSALON PERLES PO SCH ×2 (05:58→14:30)
[2021-12-01 05:59] LABS: ABG BASE EXCESS 1.9 mmol/L (-2.0-2.0); ABG HCO3 25.6 mmol/L (22-26)
[2021-12-01 06:17] LABS: PLATELET MORPHOLOGY COMMENT NORMAL (NORMAL)
--- NOTE | 2021-12-01 06:38 | RAD ---
HISTORYCOVID+STUDYCHEST, 1 VIEWCOMPARISONOne day prior.TECHNIQUEAP view of the chestFINDINGSThe cardiac silhouette is stably enlarged. Mediastinal contours appear stable. No significant change in peripherally distributed bilateral airspace and interstitial opacities. No definite pleural effusion or pneumothorax. Soft tissue attenuation limits evaluation.IMPRESSIONNo significant change.Electronically signed by: Sharif Jimenez (Dec 01, 2021 06:37:37)
[2021-12-01] MEDS ORDERED: GLUCOPHAGE ONE (08:05)
[2021-12-01] MEDS: PULMICORT NEB TX 0.5 MG NEB SCH (08:05)
[2021-12-01 08:11] LABS: ABG ALLEN TEST POS
[2021-12-01] MEDS: GLUCOPHAGE PO SCH (08:39)
[2021-12-01] MEDS: ELIQUIS PO SCH (08:40)
[2021-12-01] MEDS: LUVOX PO SCH (08:40)
[2021-12-01] MEDS: AMARYL TAB 4 MG PO SCH (08:40)
[2021-12-01] MEDS: FOLIC ACID TAB 1 MG PO SCH (08:40)
[2021-12-01] MEDS: ROBITUSSIN DM PO SCH ×3 (08:41→17:57)
[2021-12-01] MEDS: VSL#3 PO SCH (08:41)
[2021-12-01] MEDS: PROTONIX INJ 40 MG VIAL IVP SCH (08:41)
[2021-12-01] MEDS: LEVAQUIN PREMIX IV 500 MG 500 MG/100 ML BAG IV SCH (08:41)
[2021-12-01] MEDS: ALBUMIN HUMAN 25%- 100 ML 100 ML IV SCH (09:53)
--- NOTE | 2021-12-01 10:06 | PCM.PROG ---
Progress Note - Progress Note for Day of Date of Exam: 12/01/21 - Subjective Subjective: IS BEING TREATED FOR PNEUMONIA DUE TO COVID-19 AND HYPOXIA. HE HAS A PMH OF DM, HTN, BPH, MYASTHENIA GRAVIS, ARTHRITIS, [place], AND SLEEP APNEA. TODAY, HE IS ALERT, SITTING UP IN BED ON MORNING ROUNDS. HE CONTINUES WITH COMPLAINTS OF WEAKNESS AND SHORTNESS OF BREATH AT TIMES. HE IS REQUIRING HEATED HIGH FLOW OXYGEN AT 50% THIS MORNING. SATURATIONS HAVE REMAINED ABOVE 90% THIS MORNING AND THROUGHOUT THE NIGHT. HE DID UTILIZE THE CPAP THROUGHOUT THE NIGHT. ON EXAMINATION, HEART IS REGULAR IN RATE AND RHYTHM. BILATERAL LUNGS NOTED WITH SCATTERED RHONCHI THROUGHOUT. ABDOMEN IS ROUND, SOFT, AND NON-TENDER WITH NORMAL BOWEL SOUNDS NOTED IN ALL QUADRANTS. HIS VITALS THIS MORNING ARE: 97. 7-77-23-94%-140/66. LABS WERE OBTAINED. ABNORMAL LAB VALUES INCLUDE THE FOLLOWING: WBC 11.4, HCT 40.0, BUN 29, GLUCOSE 179, BNP 137, TOTAL PROTEIN 6.0. A CHEST XRAY WAS OBTAINED AND REVEALED: NO SIGNIFICANT CHANGE. HE IS CURRENTLY RECEIVING NORMAL SALINE AT KVO, ALBUMIN 25% IV DAILY, SOLU-MEDROL 80MG IV Q8H, LEVAQUIN 500MG IV DAILY, ASCORBIC ACID 500MG PO Q6H, LOVENOX, PULMICORT NEBS, XOPENEX NEBS, FLUVOXAMINE 50MG PO BID, ZINC SULFATE 220MG PO DAILY, PROBIOTICS, ROBITUSSIN DM 10ML PO QID, TESSALON PERLES 200MG PO TID, TUSSIONEX 5ML PO Q12H PRN, AND THE POTASSIUM AND MAGNESIUM PROTOCOLS. OTHERWISE, WE WILL CONTINUE WITH CURRENT PLAN OF CARE AND WEAN OXYGEN TOLERATED. WE WILL FOLLOW UP WITH AM LABS AND CHEST XRAY AND CONTINUE TO MONITOR. TIME SPENT ON CLINICAL ASSESSMENT, REVIEWING LABS AND IMAGING, DECISION MAKING, AND DOCUMENTATION WAS GREATER THAN 45 MINUTES. - Past Medical Family Social History Past Med/Fam/Surg Hx: No changes since H&P Allergies: Allergies Iodinated Contrast Media [Iodinated Contrast- Oral and IV Dye] Allergy (Verified 12/23/19 14:22) Iodine and Iodide Containing Produc Allergy (Verified 12/23/19 14:22) Sulfa (Sulfonamide Antibiotics) [SULFA] Allergy (Verified 12/23/19 14:22) - Review of Systems ROS: No change since H&P - Vital Signs and I&O's Vital Signs: Temperature 97.7 F Pulse Rate [Radial] 73 Pulse Rate 77 Respiratory Rate 23 Blood Pressure [Right Arm] 122/60 Blood Pressure 140/66 O2 Sat by Pulse Oximetry 94 Intake and Output: Intake & Output 11/28/21 11/29/21 11/30/21 12/01/21 11:59 11:59 11:59 11:59 Intake Total 1973 / 1973 1797 / 1797 1608 / 1608 1660 / 1660 Output Total 450 / 450 1999 / 1999 950 / 950 2625 / 2625 Balance 1524 / 1524 -203 / -203 658 / 658 -965 / -965 - Physical Exam Oriented: Normal Eyes: Normal Ear: Normal Nose: Normal Throat: Normal Respiratory: Generalized, Diminished, Rhonchi Cardiovascular: Bradycardia : Normal Auscultation: Bowel Sounds: Normal Palpation: Normal Tenderness: Normal Skin: Normal Musculoskeletal: Normal Psychiatric: Normal Mood Description: Calm Affect: Normal Speech Pattern: Clear, Appropriate - Laboratory and Diagnostics Result Diagrams: 12/01/21 05:06 12/01/21 05:06 Labs: 11/23/21 17:40 Blood Blood Culture - Final 11/23/21 17:35 Blood Blood Culture - Final Laboratory WBC 11.4 X10^3/uL (3.6-10.0) H 12/01/21 05:06 RBC 4.81 X10^6/uL (4.7-6.0) 12/01/21 05:06 Hgb 13.5 g/dL (13.5-18.0) 12/01/21 05:06 Hct 40.0 % (42.0-54.0) L 12/01/21 05:06 MCV 83.3 fL (80.0-100.0) 12/01/21 05:06 MCH 28.0 pg (27.0-34.0) 12/01/21 05:06 MCHC 33.7 g/dL (33.0-35.0) 12/01/21 05:06 RDW 14.6 % (11.6-16.5) 12/01/21 05:06 Plt Count 219 X10^3/uL (150.0-450.0) 12/01/21 05:06 Plt Count Comment Adequate (ADEQUATE) 12/01/21 05:06 MPV 8.5 fL (7.4-11.0) 12/01/21 05:06 Neut % (Auto) 90.7 % (42.0-75.0) H 12/01/21 05:06 Lymph % (Auto) 6.4 % (21.0-51.0) L 12/01/21 05:06 [place] % (Auto) 2.6 % (0.0-13.0) 12/01/21 05:06 Eos % (Auto) 0.0 % (0.9-2.9) L 12/01/21 05:06 Baso % (Auto) 0.3 % (0.2-1.0) 12/01/21 05:06 Neut # (Auto) 10.3 x10^3/uL (2.2-4.8) H 12/01/21 05:06 Lymph # (Auto) 0.7 X10^3/uL (1.3-2.9) L 12/01/21 05:06 [place] # (Auto) 0.3 x10^3/uL (0.3-0.8) 12/01/21 05:06 Eos # (Auto) 0.0 x10^3/uL (0.0-0.2) 12/01/21 05:06 Baso # (Auto) 0.0 X10^3/uL (0.0-0.1) 12/01/21 05:06 Absolute Nucleated RBC 0.0 /100WBC 12/01/21 05:06 Total Counted 100 12/01/21 05:06 Neutrophils % (Manual) 92 % (39-76) H 12/01/21 05:06 Band Neutrophils % 1 % (0-10) 11/29/21 04:23 Lymphocytes % (Manual) 5 % (13-43) L 12/01/21 05:06 Monocytes % (Manual) 3 % (4-9) L 12/01/21 05:06 Plt Morphology Comment Normal (NORMAL) 12/01/21 05:06 RBC Morphology Normal (NORMAL) 12/01/21 05:06 D-Dimer 0.43 ug/ml (0.0-0.57) 11/23/21 17:35 Sample Site Rr 12/01/21 05:58 ABG pH 7.460 (7.35-7.45) H 12/01/21 05:58 ABG pCO2 36.0 mmHg (35.0-45.0) 12/01/21 05:58 ABG pO2 55.0 mmHg (80.0-100.0) L 12/01/21 05:58 ABG HCO3 25.6 mmol/L (22-26) 12/01/21 05:58 ABG O2 Saturation 90.0 % (90-100) 12/01/21 05:58 ABG Base Excess 1.9 mmol/L (-2.0-2.0) 12/01/21 05:58 Basilio Test Pos 12/01/21 05:58 A-a Gradient 257.0 mmHg 12/01/21 05:58 FiO2 50.0 12/01/21 05:58 Blood Gas Comments [facility] 12/01/21 05:58 Sodium 140 mmol/L (136-145) 12/01/21 05:06 Corrected Sodium 142 mmol/L (136-145) 12/01/21 05:06 Potassium 4.3 mmol/L (3.5-5.1) 12/01/21 05:06 Chloride 103 mmol/L (98-107) 12/01/21 05:06 Carbon Dioxide 26.0 mmol/L (21-32) 12/01/21 05:06 BUN 29 mg/dL (7-18) H 12/01/21 05:06 Creatinine 1.29 mg/dL (0.70-1.30) 12/01/21 05:06 Est GFR (MDRD) Af Amer > 60 (>60) 12/01/21 05:06 Est GFR (MDRD) Non-Af 58 (>60) L 12/01/21 05:06 Glucose 179 mg/dL (65-99) H 12/01/21 05:06 POC Glucose (mg/dL) 158 mg/dL (65-99) H 11/30/21 20:25 Calcium 8.7 mg/dL (8.5-10.1) 12/01/21 05:06 Corrected Calcium TNP 12/01/21 05:06 Magnesium 2.2 mg/dL (1.7-2.9) 11/25/21 04:07 Ferritin 333 ng/mL (26-388) 11/23/21 17:35 Total Bilirubin 0.60 mg/dL (0.2-1.0) 12/01/21 05:06 AST 18 Units/L (15-37) 12/01/21 05:06 ALT 29 Units/L (12-78) 12/01/21 05:06 Alkaline Phosphatase 60 Units/L (46-116) 12/01/21 05:06 C-Reactive Protein 1.50 mg/L (0-3.0) 12/01/21 05:06 B-Natriuretic Peptide 137 pg/mL (0-79) H 12/01/21 05:06 Total Protein 6.0 g/dL (6.4-8.2) L 12/01/21 05:06 Albumin 3.4 g/dL (3.4-5.0) 12/01/21 05:06 Globulin 2.6 g/dL (2.5-4.5) 12/01/21 05:06 Albumin/Globulin Ratio 1.3 Ratio (1.1-2.1) 12/01/21 05:06 - Plan (1) Pneumonia due to COVID-19 virus Status: Acute Plan: supplemental oxygen, iv antibiotics, iv steroids, remdesivir, albumin, neb tx, immune supplements (2) Hypoxia Status: Acute (3) Diabetes mellitus Status: Chronic Qualifiers: Diabetes mellitus type: type 2 Diabetes mellitus chcf insulin use: with chcf use Diabetes mellitus complication status: with hyperglycemia Qualified Code(s): E11.65 - Type 2 diabetes mellitus with hyperglycemia; Z79.4 - [facility] (current) use of insulin (4) Essential hypertension Status: Chronic (5) Prostatic hypertrophy Status: Chronic (6) Myasthenia gravis Status: Chronic
[2021-12-01] MEDS: NovoLIN R (or HumuLIN R) SUBCUT PRN (12:10)
[2021-12-01] MEDS ORDERED: XOPENEX 1.25 MG/3 ML NEBULE NEB ONE (20:15)
[2021-12-01] MEDS ORDERED: PULMICORT NEB TX 0.5 MG NEB ONE (20:15)
[2021-12-01] MEDS ORDERED: ELIQUIS PO ONE (21:00)
[2021-12-01] MEDS ORDERED: VITAMIN C PO ONE (21:00)
[2021-12-01] MEDS ORDERED: PROTONIX INJ 40 MG VIAL IVP ONE (21:00)
[2021-12-01] MEDS ORDERED: TESSALON PERLES PO ONE (21:00)
[2021-12-01] MEDS ORDERED: LUVOX PO ONE (21:00)
[2021-12-01] MEDS ORDERED: GLUCOPHAGE PO ONE (21:00)
[2021-12-01] MEDS ORDERED: ROBITUSSIN DM PO ONE (21:00)
[2021-12-01] MEDS ORDERED: AMARYL TAB 4 MG PO ONE (21:00)
[2021-12-01] MEDS ORDERED: NEURONTIN CAP 300 MG PO ONE (21:00)
[2021-12-01] MEDS ORDERED: TUSSIONEX PENNKINETIC SUSP PO ONE (21:00)
[2021-12-01] MEDS ORDERED: SOLU-Medrol 125 MG VIAL IVP ONE (22:00)
[2021-12-02] MEDS ORDERED: VITAMIN C PO ONE ×2 (03:00→09:00)
[2021-12-02] MEDS ORDERED: SOLU-Medrol 125 MG VIAL IVP ONE (06:00)
[2021-12-02] MEDS ORDERED: TESSALON PERLES PO ONE ×2 (06:00→14:00)
[2021-12-02] MEDS ORDERED: MESTINON 60MG TAB PO ONE (06:00)
[2021-12-02] MEDS ORDERED: TUSSIONEX PENNKINETIC SUSP PO ONE (08:04)
[2021-12-02] MEDS ORDERED: LUVOX PO ONE (09:00)
[2021-12-02] MEDS ORDERED: NEURONTIN CAP 300 MG PO ONE (09:00)
[2021-12-02] MEDS ORDERED: ALBUMIN HUMAN 25%- 100 ML IV ONE (09:00)
[2021-12-02] MEDS ORDERED: ELIQUIS PO ONE (09:00)
[2021-12-02] MEDS ORDERED: AMARYL TAB 4 MG PO ONE (09:00)
[2021-12-02] MEDS ORDERED: GLUCOPHAGE PO ONE (09:00)
[2021-12-02] MEDS ORDERED: ROBITUSSIN DM PO ONE ×2 (09:00→13:00)
[2021-12-02] MEDS ORDERED: VSL#3 PO ONE (09:00)
[2021-12-02] MEDS ORDERED: PROTONIX INJ 40 MG VIAL IVP ONE (09:00)
[2021-12-02] MEDS ORDERED: LEVAQUIN PREMIX IV 500 MG IV ONE (09:00)
[2021-12-02] MEDS ORDERED: FOLIC ACID TAB 1 MG PO ONE (09:00)
[2021-12-02] MEDS ORDERED: PULMICORT NEB TX 0.5 MG NEB ONE (09:45)
[2021-12-02] MEDS ORDERED: XOPENEX 1.25 MG/3 ML NEBULE NEB ONE (13:35)
[2021-12-02] MEDS: ROBITUSSIN DM PO SCH ×4 (14:00→20:10)
[2021-12-02 14:08] LABS: ALANINE AMINOTRANSFERASE 29 Units/L (12-78); ALBUMIN 3.3 g/dL (3.4-5.0); ALKALINE PHOSPHATASE 60 Units/L (46-116); ASPARTATE AMINO TRANSFERASE 17 Units/L (15-37); BLOOD UREA NITROGEN 29 mg/dL (7-18); CALCIUM 8.3 mg/dL (8.5-10.1); CHLORIDE 104 mmol/L (98-107); COR CA(FOR HYPOALB) 8.9 mg/dL (8.5-10.1); COR NA(FOR HYPERGLY) 141 mmol/L (136-145); CREATININE 0.97 mg/dL (0.70-1.30); SODIUM 139 mmol/L (136-145); TOTAL PROTEIN 5.8 g/dL (6.4-8.2); eGFR NON BLACK RACES > 60 (>60)
[2021-12-02] MEDS: VITAMIN C PO SCH ×3 (14:12→20:10)
[2021-12-02] MEDS: NEURONTIN CAP 300 MG PO SCH ×3 (14:13→21:15)
[2021-12-02] MEDS: PYRIDOSTIGMINE BROMIDE 60 MG PO SCH ×3 (14:13→21:15)
[2021-12-02] MEDS: TESSALON PERLES PO SCH ×4 (14:13→21:15)
[2021-12-02] MEDS: SOLU-Medrol 125 MG VIAL IVP SCH ×4 (14:13→21:15)
--- NOTE | 2021-12-02 14:31 | RAD ---
HISTORYShortness of breath, COVID-19STUDYChest AP [id number]/21/2022FINDINGSThe heart is enlarged. No congestive heart failure is noted. Diffuse bilateral interstitial infiltrates and bilateral predominantly peripheral ground-glass and alveolar infiltrates have increased somewhat when compared to the prior examination. No pleural effusions or pneumothoraces are identified. Bony thorax is unremarkable.IMPRESSIONSome increase in the bilateral infiltrates as described above when compared to the prior examinationElectronically signed by: SANDRA SHAFFER (Dec 02, 2021 14:29:22)
[2021-12-02 14:32] LABS: BASOPHILS % (AUTO) 0.2 % (0.2-1.0); HEMATOCRIT 40.2 % (42.0-54.0); HEMOGLOBIN 13.4 g/dL (13.5-18.0); LYMPHOCYTES # (AUTO) 0.7 X10^3/uL (1.3-2.9); LYMPHOCYTES % (AUTO) 5.8 % (21.0-51.0); MEAN CORPUSCULAR HGB CONC 33.3 g/dL (33.0-35.0); MEAN CORPUSCULAR VOLUME 84.1 fL (80.0-100.0); MEAN PLATELET VOLUME 8.6 fL (7.4-11.0); MONOCYTES # (AUTO) 0.4 x10^3/uL (0.3-0.8); MONOCYTES % (AUTO) 2.9 % (0.0-13.0); NEUTROPHILS # (AUTO) 11.2 x10^3/uL (2.2-4.8); NEUTROPHILS % (AUTO) 91.1 % (42.0-75.0); RED BLOOD COUNT 4.78 X10^6/uL (4.7-6.0); RED CELL DISTRIBUTION WIDTH 14.6 % (11.6-16.5); WHITE BLOOD COUNT 12.3 X10^3/uL (3.6-10.0)
[2021-12-02 14:33] LABS: PLATELET MORPHOLOGY COMMENT NORMAL (NORMAL)
[2021-12-02] MEDS: SNACK - Diabetic Appropriate PO SCH ×2 (15:44→20:00)
[2021-12-02] MEDS: AMARYL TAB 4 MG PO SCH ×3 (15:45→20:11)
[2021-12-02] MEDS: LUVOX PO SCH ×2 (15:45→20:11)
[2021-12-02] MEDS: ELIQUIS PO SCH ×2 (15:45→20:10)
--- NOTE | 2021-12-02 15:45 | PCM.PROG ---
Progress Note Progress Note for Day of Date of Exam: 12/02/21 Subjective Subjective: IS BEING TREATED FOR PNEUMONIA DUE TO COVID-19 AND HYPOXIA. HE HAS A PMH OF DM, HTN, BPH, MYASTHENIA GRAVIS, ARTHRITIS, [place], AND SLEEP APNEA. TODAY, HE IS ALERT, SITTING UP IN BED ON MORNING ROUNDS. HE CONTINUES WITH COMPLAINTS OF WEAKNESS AND SHORTNESS OF BREATH AT TIMES. HE IS REQUIRING HEATED HIGH FLOW OXYGEN AT 50% THIS MORNING. SATURATIONS HAVE REMAINED ABOVE 90% THIS MORNING AND THROUGHOUT THE NIGHT. HE DID UTILIZE THE CPAP THROUGHOUT THE NIGHT. ON EXAMINATION, HEART IS REGULAR IN RATE AND RHYTHM. BILATERAL LUNGS NOTED WITH SCATTERED RHONCHI THROUGHOUT AND WITH EXPIRATORY WHEEEZING. ABDOMEN IS ROUND, SOFT, AND NON-TENDER WITH NORMAL BOWEL SOUNDS NOTED IN ALL QUADRANTS. Past Medical Family Social History Past Med/Fam/Surg Hx: No changes since H&P Allergies: Allergies Iodinated Contrast Media [Iodinated Contrast- Oral and IV Dye] Allergy (Verified 12/23/19 14:22) Iodine and Iodide Containing Produc Allergy (Verified 12/23/19 14:22) Sulfa (Sulfonamide Antibiotics) [SULFA] Allergy (Verified 12/23/19 14:22) Review of Systems ROS: No change since H&P Vital Signs and I&O's Vital Signs: Temperature 98.4 F Pulse Rate [Radial] 73 Pulse Rate 74 Respiratory Rate 16 Blood Pressure [Right Arm] 122/60 Blood Pressure 138/65 O2 Sat by Pulse Oximetry 92 Intake and Output: Intake & Output 11/30/21 12/01/21 12/02/21 12/03/21 11:59 11:59 11:59 11:59 Intake Total 1608 / 1608 1660 / 1660 570 / 570 624 / 624 Output Total 950 / 950 3225 / 3225 600 / 600 800 / 800 Balance 658 / 658 -1565 / -1565 -30 / -30 -176 / -176 Physical Exam Oriented: Normal Eyes: Normal Ear: Normal Nose: Normal Throat: Normal Respiratory: Generalized, Diminished, Wheezes and Rhonchi Cardiovascular: Normal : Normal Auscultation: Bowel Sounds: Normal Tenderness: Normal Skin: Normal Musculoskeletal: Normal Psychiatric: Normal Mood Description: Calm Affect: Normal Speech Pattern: Clear and Appropriate Laboratory and Diagnostics Result Diagrams: 12/02/21 04:21 12/02/21 04:21 Labs: 11/23/21 17:40 Blood Blood Culture - Final 11/23/21 17:35 Blood Blood Culture - Final Laboratory WBC 12.3 X10^3/uL (3.6-10.0) H 12/02/21 04:21 RBC 4.78 X10^6/uL (4.7-6.0) 12/02/21 04:21 Hgb 13.4 g/dL (13.5-18.0) L 12/02/21 04:21 Hct 40.2 % (42.0-54.0) L 12/02/21 04:21 MCV 84.1 fL (80.0-100.0) 12/02/21 04:21 MCH 28.0 pg (27.0-34.0) 12/02/21 04:21 MCHC 33.3 g/dL (33.0-35.0) 12/02/21 04:21 RDW 14.6 % (11.6-16.5) 12/02/21 04:21 Plt Count 207 X10^3/uL (150.0-450.0) 12/02/21 04:21 Plt Count Comment Adequate (ADEQUATE) 12/02/21 04:21 MPV 8.6 fL (7.4-11.0) 12/02/21 04:21 Neut % (Auto) 91.1 % (42.0-75.0) H 12/02/21 04:21 Lymph % (Auto) 5.8 % (21.0-51.0) L 12/02/21 04:21 [place] % (Auto) 2.9 % (0.0-13.0) 12/02/21 04:21 Eos % (Auto) 0.0 % (0.9-2.9) L 12/02/21 04:21 Baso % (Auto) 0.2 % (0.2-1.0) 12/02/21 04:21 Neut # (Auto) 11.2 x10^3/uL (2.2-4.8) H 12/02/21 04:21 Lymph # (Auto) 0.7 X10^3/uL (1.3-2.9) L 12/02/21 04:21 [place] # (Auto) 0.4 x10^3/uL (0.3-0.8) 12/02/21 04:21 Eos # (Auto) 0.0 x10^3/uL (0.0-0.2) 12/02/21 04:21 Baso # (Auto) 0.0 X10^3/uL (0.0-0.1) 12/02/21 04:21 Absolute Nucleated RBC 0.1 /100WBC 12/02/21 04:21 Total Counted 100 12/02/21 04:21 Neutrophils % (Manual) 95 % (39-76) H 12/02/21 04:21 Band Neutrophils % 1 % (0-10) 11/29/21 04:23 Lymphocytes % (Manual) 4 % (13-43) L 12/02/21 04:21 Monocytes % (Manual) 1 % (4-9) L 12/02/21 04:21 Plt Morphology Comment Normal (NORMAL) 12/02/21 04:21 RBC Morphology Normal (NORMAL) 12/02/21 04:21 D-Dimer 0.43 ug/ml (0.0-0.57) 11/23/21 17:35 Sample Site Rr 12/01/21 05:58 ABG pH 7.460 (7.35-7.45) H 12/01/21 05:58 ABG pCO2 36.0 mmHg (35.0-45.0) 12/01/21 05:58 ABG pO2 55.0 mmHg (80.0-100.0) L 12/01/21 05:58 ABG HCO3 25.6 mmol/L (22-26) 12/01/21 05:58 ABG O2 Saturation 90.0 % (90-100) 12/01/21 05:58 ABG Base Excess 1.9 mmol/L (-2.0-2.0) 12/01/21 05:58 Basilio Test Pos 12/01/21 05:58 A-a Gradient 257.0 mmHg 12/01/21 05:58 FiO2 50.0 12/01/21 05:58 Blood Gas Comments Pt [facility] 12/01/21 05:58 Sodium 139 mmol/L (136-145) 12/02/21 04:21 Corrected Sodium 141 mmol/L (136-145) 12/02/21 04:21 Potassium 4.0 mmol/L (3.5-5.1) 12/02/21 04:21 Chloride 104 mmol/L (98-107) 12/02/21 04:21 Carbon Dioxide 26.0 mmol/L (21-32) 12/02/21 04:21 BUN 29 mg/dL (7-18) H 12/02/21 04:21 Creatinine 0.97 mg/dL (0.70-1.30) 12/02/21 04:21 Est GFR (MDRD) Af Amer > 60 (>60) 12/02/21 04:21 Est GFR (MDRD) Non-Af > 60 (>60) 12/02/21 04:21 Glucose 197 mg/dL (65-99) H 12/02/21 04:21 POC Glucose (mg/dL) 114 mg/dL (65-99) H 12/01/21 16:41 Calcium 8.3 mg/dL (8.5-10.1) L 12/02/21 04:21 Corrected Calcium 8.9 mg/dL (8.5-10.1) 12/02/21 04:21 Magnesium 2.2 mg/dL (1.7-2.9) 11/25/21 04:07 Ferritin 333 ng/mL (26-388) 11/23/21 17:35 Total Bilirubin 0.70 mg/dL (0.2-1.0) 12/02/21 04:21 AST 17 Units/L (15-37) 12/02/21 04:21 ALT 29 Units/L (12-78) 12/02/21 04:21 Alkaline Phosphatase 60 Units/L (46-116) 12/02/21 04:21 C-Reactive Protein 1.00 mg/L (0-3.0) 12/02/21 04:21 B-Natriuretic Peptide 115 pg/mL (0-79) H 12/02/21 04:21 Total Protein 5.8 g/dL (6.4-8.2) L 12/02/21 04:21 Albumin 3.3 g/dL (3.4-5.0) L 12/02/21 04:21 Globulin 2.5 g/dL (2.5-4.5) 12/02/21 04:21 Albumin/Globulin Ratio 1.3 Ratio (1.1-2.1) 12/02/21 04:21 Radiology Reviewed: Yes Plan (1) Pneumonia due to COVID-19 virus: Status: Acute Plan: supplemental oxygen, iv antibiotics, iv steroids, remdesivir, albumin, neb tx, immune supplements (2) Hypoxia: Status: Acute (3) Diabetes mellitus: Status: Chronic Qualifiers: Diabetes mellitus type: type 2 Diabetes mellitus exterminator helper insulin use: with exterminator helper use Diabetes mellitus complication status: with hyperglycemia Qualified Code(s): E11.65 - Type 2 diabetes mellitus with hyperglycemia; Z79.4 - MCC (current) use of insulin (4) Essential hypertension: Status: Chronic (5) Prostatic hypertrophy: Status: Chronic (6) Myasthenia gravis: Status: Chronic
[2021-12-02] MEDS: GLUCOPHAGE PO SCH ×2 (15:46→20:11)
[2021-12-02] MEDS: PROTONIX INJ 40 MG VIAL IVP SCH ×3 (15:46→20:11)
[2021-12-02] MEDS: ALBUMIN HUMAN 25%- 100 ML 100 ML IV SCH (15:49)
[2021-12-02] MEDS: FOLIC ACID TAB 1 MG PO SCH (15:50)
[2021-12-02] MEDS: VSL#3 PO SCH (15:50)
[2021-12-02] MEDS: LEVAQUIN PREMIX IV 500 MG 500 MG/100 ML BAG IV SCH (15:50)
[2021-12-02] MEDS ORDERED: GLUCOPHAGE ONE (19:44)
[2021-12-02] MEDS: NovoLIN R (or HumuLIN R) SUBCUT PRN (20:11)
[2021-12-02] MEDS: XOPENEX 1.25 MG/3 ML NEBULE NEB SCH (20:45)
[2021-12-02] MEDS: PULMICORT NEB TX 0.5 MG NEB SCH (20:45)
[2021-12-02] MEDS: TUSSIONEX PENNKINETIC SUSP PO PRN (22:15)
[2021-12-02] MEDS: RESTORIL CAP 15 MG PO PRN (22:15)
[2021-12-03] MEDS: VITAMIN C PO SCH ×4 (03:00→20:14)
--- NOTE | 2021-12-03 05:39 | RAD ---
PROCEDURE: Chest X-ray 1 View .HISTORY: COVID+, PNEUMONIA, HYPOXIA .TECHNIQUE: AP portable done at 5:29 a.m..COMPARISON: 12/02/2021.TECHNICAL QUALITY: Satisfactory .FINDINGS:Unremarkable cardio mediastinal silhouette and normal central vascularity.Continued consolidation both lower lung [place] predominantly peripherally that is unchanged. No pleural fluid or pneumothorax.IMPRESSION:Unchanged bilateral pneumonia.Electronically signed by: Arturo Hull (Dec 03, 2021 05:38:01)
[2021-12-03 05:43] LABS: BASOPHILS % (AUTO) 0.1 % (0.2-1.0); HEMATOCRIT 38.9 % (42.0-54.0); LYMPHOCYTES # (AUTO) 0.8 X10^3/uL (1.3-2.9); LYMPHOCYTES % (AUTO) 5.9 % (21.0-51.0); MEAN CORPUSCULAR HGB CONC 33.6 g/dL (33.0-35.0); MEAN CORPUSCULAR VOLUME 83.5 fL (80.0-100.0); MEAN PLATELET VOLUME 8.7 fL (7.4-11.0); MONOCYTES # (AUTO) 0.4 x10^3/uL (0.3-0.8); MONOCYTES % (AUTO) 3.1 % (0.0-13.0); NEUTROPHILS # (AUTO) 12.8 x10^3/uL (2.2-4.8); NEUTROPHILS % (AUTO) 90.9 % (42.0-75.0); RED BLOOD COUNT 4.66 X10^6/uL (4.7-6.0); RED CELL DISTRIBUTION WIDTH 14.5 % (11.6-16.5)
[2021-12-03] MEDS: PYRIDOSTIGMINE BROMIDE 60 MG PO SCH (05:45)
[2021-12-03] MEDS: NEURONTIN CAP 300 MG PO SCH ×3 (05:45→21:00)
[2021-12-03] MEDS: TESSALON PERLES PO SCH ×3 (05:47→21:00)
[2021-12-03] MEDS: SOLU-Medrol 125 MG VIAL IVP SCH ×3 (05:47→21:00)
[2021-12-03] MEDS: NovoLIN R (or HumuLIN R) SUBCUT PRN ×3 (05:48→20:15)
[2021-12-03] MEDS: XOPENEX 1.25 MG/3 ML NEBULE NEB SCH ×2 (05:51→20:41)
[2021-12-03 06:02] LABS: ALANINE AMINOTRANSFERASE 31 Units/L (12-78); ALBUMIN 3.3 g/dL (3.4-5.0); ALKALINE PHOSPHATASE 68 Units/L (46-116); ASPARTATE AMINO TRANSFERASE 17 Units/L (15-37); BLOOD UREA NITROGEN 32 mg/dL (7-18); CALCIUM 8.7 mg/dL (8.5-10.1); CARBON DIOXIDE 24.6 mmol/L (21-32); CHLORIDE 103 mmol/L (98-107); COR CA(FOR HYPOALB) 9.3 mg/dL (8.5-10.1); COR NA(FOR HYPERGLY) 140 mmol/L (136-145); CREATININE 1.04 mg/dL (0.70-1.30); SODIUM 138 mmol/L (136-145); TOTAL PROTEIN 5.8 g/dL (6.4-8.2); eGFR NON BLACK RACES > 60 (>60)
[2021-12-03 07:10] LABS: PLATELET MORPHOLOGY COMMENT NORMAL (NORMAL)
[2021-12-03] MEDS ORDERED: GLUCOPHAGE ONE ×2 (08:29→20:03)
[2021-12-03] MEDS: PULMICORT NEB TX 0.5 MG NEB SCH ×2 (09:23→20:41)
[2021-12-03] MEDS: GLUCOPHAGE PO SCH ×2 (09:25→20:14)
[2021-12-03] MEDS: ALBUMIN HUMAN 25%- 100 ML 100 ML IV SCH (09:26)
[2021-12-03] MEDS: ELIQUIS PO SCH ×2 (09:26→20:14)
[2021-12-03] MEDS: AMARYL TAB 4 MG PO SCH ×2 (09:26→20:14)
[2021-12-03] MEDS: PROTONIX INJ 40 MG VIAL IVP SCH ×2 (09:27→20:49)
[2021-12-03] MEDS: FOLIC ACID TAB 1 MG PO SCH (09:27)
[2021-12-03] MEDS: ROBITUSSIN DM PO SCH ×4 (09:27→20:13)
[2021-12-03] MEDS: LUVOX PO SCH ×2 (09:27→20:14)
[2021-12-03] MEDS: LEVAQUIN PREMIX IV 500 MG 500 MG/100 ML BAG IV SCH (09:27)
[2021-12-03] MEDS: VSL#3 PO SCH (09:27)
[2021-12-03] MEDS: MESTINON 60MG TAB PO SCH ×2 (13:21→21:00)
--- NOTE | 2021-12-03 15:33 | PCM.PROG ---
Progress Note Progress Note for Day of Date of Exam: 12/03/21 Subjective Subjective: IS BEING TREATED FOR PNEUMONIA DUE TO COVID-19 AND HYPOXIA. HE HAS A PMH OF DM, HTN, BPH, MYASTHENIA GRAVIS, ARTHRITIS, DE, AND SLEEP APNEA. TODAY, HE IS ALERT, SITTING UP IN BED ON MORNING ROUNDS. HE IS REQUIRING HEATED HIGH FLOW OXYGEN AT 50% THIS MORNING. SATURATIONS HAVE REMAINED ABOVE 90% THIS MORNING AND THROUGHOUT THE NIGHT. ON EXAMINATION, HEART IS REGULAR IN RATE AND RHYTHM. BILATERAL LUNGS NOTED WITH SCATTERED RHONCHI THROUGHOUT AND WITH increased air entry today. ABDOMEN IS ROUND, SOFT, AND NON-TENDER WITH NORMAL BOWEL SOUNDS NOTED IN ALL QUADRANTS. He does report he feels better overall. Past Medical Family Social History Past Med/Fam/Surg Hx: No changes since H&P Allergies: Allergies Iodinated Contrast Media [Iodinated Contrast- Oral and IV Dye] Allergy (Verified 12/23/19 14:22) Iodine and Iodide Containing Produc Allergy (Verified 12/23/19 14:22) Sulfa (Sulfonamide Antibiotics) [SULFA] Allergy (Verified 12/23/19 14:22) Review of Systems ROS: No change since H&P Vital Signs and I&O's Vital Signs: Temperature 98.2 F Pulse Rate [Radial] 73 Pulse Rate 75 Respiratory Rate 24 Blood Pressure [Right Arm] 122/60 Blood Pressure 150/67 O2 Sat by Pulse Oximetry 96 Intake and Output: Intake & Output 12/01/21 12/02/21 12/03/21 12/04/21 11:59 11:59 11:59 11:59 Intake Total 1660 / 1660 570 / 570 1364 / 1364 Output Total 3225 / 3225 600 / 600 1800 / 1800 Balance -1565 / -1565 -30 / -30 -436 / -436 Physical Exam Oriented: Normal Eyes: Normal Ear: Normal Nose: Normal Throat: Normal Respiratory: Generalized, Wheezes and Rhonchi Cardiovascular: Normal : Normal Auscultation: Bowel Sounds: Normal Tenderness: Normal Skin: Normal Musculoskeletal: Normal Psychiatric: Normal Mood Description: Calm Affect: Normal Speech Pattern: Clear and Appropriate Laboratory and Diagnostics Result Diagrams: 12/03/21 04:57 12/03/21 04:57 Labs: 11/23/21 17:40 Blood Blood Culture - Final 11/23/21 17:35 Blood Blood Culture - Final Laboratory WBC 14.0 X10^3/uL (3.6-10.0) H 12/03/21 04:57 RBC 4.66 X10^6/uL (4.7-6.0) L 12/03/21 04:57 Hgb 13.0 g/dL (13.5-18.0) L 12/03/21 04:57 Hct 38.9 % (42.0-54.0) L 12/03/21 04:57 MCV 83.5 fL (80.0-100.0) 12/03/21 04:57 MCH 28.0 pg (27.0-34.0) 12/03/21 04:57 MCHC 33.6 g/dL (33.0-35.0) 12/03/21 04:57 RDW 14.5 % (11.6-16.5) 12/03/21 04:57 Plt Count 196 X10^3/uL (150.0-450.0) 12/03/21 04:57 Plt Count Comment Adequate (ADEQUATE) 12/03/21 04:57 MPV 8.7 fL (7.4-11.0) 12/03/21 04:57 Neut % (Auto) 90.9 % (42.0-75.0) H 12/03/21 04:57 Lymph % (Auto) 5.9 % (21.0-51.0) L 12/03/21 04:57 [place] % (Auto) 3.1 % (0.0-13.0) 12/03/21 04:57 Eos % (Auto) 0.0 % (0.9-2.9) L 12/03/21 04:57 Baso % (Auto) 0.1 % (0.2-1.0) L 12/03/21 04:57 Neut # (Auto) 12.8 x10^3/uL (2.2-4.8) H 12/03/21 04:57 Lymph # (Auto) 0.8 X10^3/uL (1.3-2.9) L 12/03/21 04:57 [place] # (Auto) 0.4 x10^3/uL (0.3-0.8) 12/03/21 04:57 Eos # (Auto) 0.0 x10^3/uL (0.0-0.2) 12/03/21 04:57 Baso # (Auto) 0.0 X10^3/uL (0.0-0.1) 12/03/21 04:57 Absolute Nucleated RBC 0.0 /100WBC 12/03/21 04:57 Total Counted 100 12/03/21 04:57 Neutrophils % (Manual) 89 % (39-76) H 12/03/21 04:57 Band Neutrophils % 1 % (0-10) 11/29/21 04:23 Lymphocytes % (Manual) 8 % (13-43) L 12/03/21 04:57 Monocytes % (Manual) 3 % (4-9) L 12/03/21 04:57 Plt Morphology Comment Normal (NORMAL) 12/03/21 04:57 RBC Morphology Normal (NORMAL) 12/03/21 04:57 D-Dimer 0.43 ug/ml (0.0-0.57) 11/23/21 17:35 Sample Site Rr 12/01/21 05:58 ABG pH 7.460 (7.35-7.45) H 12/01/21 05:58 ABG pCO2 36.0 mmHg (35.0-45.0) 12/01/21 05:58 ABG pO2 55.0 mmHg (80.0-100.0) L 12/01/21 05:58 ABG HCO3 25.6 mmol/L (22-26) 12/01/21 05:58 ABG O2 Saturation 90.0 % (90-100) 12/01/21 05:58 ABG Base Excess 1.9 mmol/L (-2.0-2.0) 12/01/21 05:58 Basilio Test Pos 12/01/21 05:58 A-a Gradient 257.0 mmHg 12/01/21 05:58 FiO2 50.0 12/01/21 05:58 Blood Gas Comments Pt [facility] 12/01/21 05:58 Sodium 138 mmol/L (136-145) 12/03/21 04:57 Corrected Sodium 140 mmol/L (136-145) 12/03/21 04:57 Potassium 4.1 mmol/L (3.5-5.1) 12/03/21 04:57 Chloride 103 mmol/L (98-107) 12/03/21 04:57 Carbon Dioxide 24.6 mmol/L (21-32) 12/03/21 04:57 BUN 32 mg/dL (7-18) H 12/03/21 04:57 Creatinine 1.04 mg/dL (0.70-1.30) 12/03/21 04:57 Est GFR (MDRD) Af Amer > 60 (>60) 12/03/21 04:57 Est GFR (MDRD) Non-Af > 60 (>60) 12/03/21 04:57 Glucose 199 mg/dL (65-99) H 12/03/21 04:57 POC Glucose (mg/dL) 114 mg/dL (65-99) H 12/01/21 16:41 Calcium 8.7 mg/dL (8.5-10.1) 12/03/21 04:57 Corrected Calcium 9.3 mg/dL (8.5-10.1) 12/03/21 04:57 Magnesium 2.2 mg/dL (1.7-2.9) 11/25/21 04:07 Ferritin 333 ng/mL (26-388) 11/23/21 17:35 Total Bilirubin 0.60 mg/dL (0.2-1.0) 12/03/21 04:57 AST 17 Units/L (15-37) 12/03/21 04:57 ALT 31 Units/L (12-78) 12/03/21 04:57 Alkaline Phosphatase 68 Units/L (46-116) 12/03/21 04:57 C-Reactive Protein < 0.50 mg/L (0-3.0) 12/03/21 04:57 B-Natriuretic Peptide 67.0 pg/mL (0-79) 12/03/21 04:57 Total Protein 5.8 g/dL (6.4-8.2) L 12/03/21 04:57 Albumin 3.3 g/dL (3.4-5.0) L 12/03/21 04:57 Globulin 2.5 g/dL (2.5-4.5) 12/03/21 04:57 Albumin/Globulin Ratio 1.3 Ratio (1.1-2.1) 12/03/21 04:57 Radiology Reviewed: Yes Plan (1) Pneumonia due to COVID-19 virus: Status: Acute Narrative Support Text: Clinically improved. 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
[2021-12-03] MEDS: SNACK - Diabetic Appropriate PO SCH (20:00)
[2021-12-03] MEDS: RESTORIL CAP 15 MG PO PRN (22:02)
[2021-12-03] MEDS: TUSSIONEX PENNKINETIC SUSP PO PRN (22:02)
[2021-12-04] MEDS: VITAMIN C PO SCH ×4 (03:00→21:44)
[2021-12-04] MEDS: MESTINON 60MG TAB PO SCH ×3 (05:26→21:47)
[2021-12-04] MEDS: NEURONTIN CAP 300 MG PO SCH ×3 (05:26→21:44)
[2021-12-04] MEDS: SOLU-Medrol 125 MG VIAL IVP SCH ×3 (05:27→21:47)
[2021-12-04] MEDS: TESSALON PERLES PO SCH ×3 (05:27→21:44)
[2021-12-04] MEDS: NovoLIN R (or HumuLIN R) SUBCUT PRN ×4 (05:52→21:47)
[2021-12-04] MEDS: XOPENEX 1.25 MG/3 ML NEBULE NEB SCH ×3 (06:05→20:35)
[2021-12-04 06:11] LABS: BLOOD UREA NITROGEN 30 mg/dL (7-18); CALCIUM 9.4 mg/dL (8.5-10.1); CHLORIDE 102 mmol/L (98-107); COR NA(FOR HYPERGLY) 142 mmol/L (136-145); CREATININE 1.05 mg/dL (0.70-1.30); SODIUM 139 mmol/L (136-145); eGFR NON BLACK RACES > 60 (>60)
[2021-12-04 06:31] LABS: ALANINE AMINOTRANSFERASE 32 Units/L (12-78); ALBUMIN 3.2 g/dL (3.4-5.0); ALKALINE PHOSPHATASE 76 Units/L (46-116); ASPARTATE AMINO TRANSFERASE 15 Units/L (15-37); TOTAL PROTEIN 5.7 g/dL (6.4-8.2)
[2021-12-04 06:36] LABS: BASOPHILS % (AUTO) 0.1 % (0.2-1.0); HEMOGLOBIN 13.4 g/dL (13.5-18.0); LYMPHOCYTES # (AUTO) 0.9 X10^3/uL (1.3-2.9); LYMPHOCYTES % (AUTO) 5.4 % (21.0-51.0); MEAN CORPUSCULAR HEMOGLOBIN 28.1 pg (27.0-34.0); MEAN CORPUSCULAR HGB CONC 33.4 g/dL (33.0-35.0); MEAN CORPUSCULAR VOLUME 84.2 fL (80.0-100.0); MEAN PLATELET VOLUME 8.8 fL (7.4-11.0); MONOCYTES # (AUTO) 0.6 x10^3/uL (0.3-0.8); MONOCYTES % (AUTO) 3.6 % (0.0-13.0); NEUTROPHILS # (AUTO) 15.2 x10^3/uL (2.2-4.8); NEUTROPHILS % (AUTO) 90.9 % (42.0-75.0); RED BLOOD COUNT 4.76 X10^6/uL (4.7-6.0); RED CELL DISTRIBUTION WIDTH 14.4 % (11.6-16.5); WHITE BLOOD COUNT 16.7 X10^3/uL (3.6-10.0)
[2021-12-04 06:54] LABS: BAND NEUTROPHILS % 2 % (0-10); PLATELET MORPHOLOGY COMMENT NORMAL (NORMAL)
--- NOTE | 2021-12-04 06:58 | RAD ---
HISTORYCOVID PNEUMONIASTUDYCHEST, 1 [id number]/2022.TECHNIQUEAP view of the chestFINDINGSThe cardiac silhouette is stably enlarged. Mediastinal contours appear stable. No significant change in bilateral airspace and interstitial opacities. No definite pleural effusion or pneumothorax. Soft tissue attenuation limits evaluation.IMPRESSIONNo significant change.Electronically signed by: Sharif Jimenez (Dec 04, 2021 06:57:20)
[2021-12-04 08:42] LABS: ABG ALLEN TEST POS; ABG BASE EXCESS 7.2 mmol/L (-2.0-2.0); ABG HCO3 31.2 mmol/L (22-26)
[2021-12-04] MEDS ORDERED: GLUCOPHAGE ONE ×2 (08:45→20:15)
[2021-12-04] MEDS: ELIQUIS PO SCH ×2 (09:17→21:44)
[2021-12-04] MEDS: AMARYL TAB 4 MG PO SCH ×2 (09:17→21:44)
[2021-12-04] MEDS: ALBUMIN HUMAN 25%- 100 ML 100 ML IV SCH (09:17)
[2021-12-04] MEDS: FOLIC ACID TAB 1 MG PO SCH (09:18)
[2021-12-04] MEDS: LUVOX PO SCH ×2 (09:18→21:44)
[2021-12-04] MEDS: GLUCOPHAGE PO SCH ×2 (09:19→21:45)
[2021-12-04] MEDS: PROTONIX INJ 40 MG VIAL IVP SCH ×2 (09:19→21:46)
[2021-12-04] MEDS: ROBITUSSIN DM PO SCH ×4 (09:20→21:45)
[2021-12-04] MEDS: VSL#3 PO SCH (09:20)
[2021-12-04] MEDS: LEVAQUIN PREMIX IV 500 MG 500 MG/100 ML BAG IV SCH (09:20)
[2021-12-04] MEDS: PULMICORT NEB TX 0.5 MG NEB SCH ×2 (09:30→20:35)
[2021-12-04] MEDS: MUCOMYST 20% 200 MG/ML NEB SCH ×2 (14:00→20:35)
--- NOTE | 2021-12-04 15:03 | PCM.PROG ---
Progress Note - Progress Note for Day of Date of Exam: 12/04/21 - Subjective Subjective: IS BEING TREATED FOR PNEUMONIA DUE TO COVID-19 AND HYPOXIA. HE HAS A PMH OF DM, HTN, BPH, MYASTHENIA GRAVIS, ARTHRITIS, PA, AND SLEEP APNEA. TODAY, HE IS ALERT, SITTING UP IN BED ON MORNING ROUNDS. HE CONTINUES WITH COMPLAINTS OF WEAKNESS AND SHORTNESS OF BREATH AT TIMES. HE IS REQUIRING HEATED HIGH FLOW OXYGEN AT 55% THIS MORNING. SATURATIONS HAVE REMAINED ABOVE 90% THIS MORNING AND THROUGHOUT THE NIGHT. HE DID UTILIZE THE CPAP THROUGHOUT THE NIGHT. ON EXAMINATION, HEART IS REGULAR IN RATE AND RHYTHM. BILATERAL LUNGS NOTED WITH DIMINISHED LUNG SOUNDS THROUGHOUT. ABDOMEN IS ROUND, SOFT, AND NON-TENDER WITH NORMAL BOWEL SOUNDS NOTED IN ALL QUADRANTS. HIS VITALS THIS MORNING ARE: 98.0-60+-12-92%-173/79. LABS WERE OBTAINED. ABNORMAL LAB VALUES INCLUDE THE FOLLOWING: WBC 16.7, HGB 13.4, HCT 40.0, BUN 30, GLUCOSE 220, TOTAL PROTEIN 5.7, ALBUMIN 3.2. ABG REVEALED: PH 7.490, PC02 41, P02 80, HC03 31.2, 02 SAT 97, BASE EXCESS 7.2, A-A GRADIENT 261, FI02 55.0. A CHEST XRAY WAS OBTAINED AND REVEALED: NO SIGNIFICANT CHANGE. HE IS CURRENTLY RECEIVING NORMAL SALINE AT KVO, ALBUMIN 25% IV DAILY, SOLU-MEDROL 80MG IV Q8H, LEVAQUIN 500MG IV DAILY, ASCORBIC ACID 500MG PO Q6H, LOVENOX, PULMICORT NEBS, XOPENEX NEBS, FLUVOXAMINE 50MG PO BID, ZINC SULFATE 220MG PO DAILY, PROBIOTICS, ROBITUSSIN DM 10ML PO QID, TESSALON PERLES 200MG PO TID, TUSSIONEX 5ML PO Q12H PRN, AND THE POTASSIUM AND MAGNESIUM PROTOCOLS. OTHERWISE, WE WILL CONTINUE WITH CURRENT PLAN OF CARE AND WEAN OXYGEN TOLERATED. WE WILL ADD MUCOMYST TO NEB TX TIDWE WILL FOLLOW UP WITH AM LABS AND CHEST XRAY AND CONTINUE TO MONITOR. TIME SPENT ON CLINICAL ASSESSMENT, REVIEWING LABS AND IMAGING, DECISION MAKING, AND DOCUMENTATION WAS GREATER THAN 45 MINUTES. - Past Medical Family Social History Past Med/Fam/Surg Hx: No changes since H&P Allergies: Allergies Iodinated Contrast Media [Iodinated Contrast- Oral and IV Dye] Allergy (Verified 12/23/19 14:22) Iodine and Iodide Containing Produc Allergy (Verified 12/23/19 14:22) Sulfa (Sulfonamide Antibiotics) [SULFA] Allergy (Verified 12/23/19 14:22) - Review of Systems ROS: No change since H&P - Vital Signs and I&O's Vital Signs: Temperature 98.0 F Pulse Rate [Radial] 73 Pulse Rate 78 Respiratory Rate 12 Blood Pressure [Right Arm] 122/60 Blood Pressure 190/88 O2 Sat by Pulse Oximetry 96 Intake and Output: Intake & Output 12/02/21 12/03/21 12/04/21 12/05/21 11:59 11:59 11:59 11:59 Intake Total 570 / 570 1364 / 1364 1500 / 1500 Output Total 600 / 600 1800 / 1800 2400 / 2400 Balance -30 / -30 -436 / -436 -900 / -900 - Physical Exam Oriented: Normal Eyes: Normal Ear: Normal Nose: Normal Throat: Normal Respiratory: Generalized, Diminished Cardiovascular: Normal : Normal Auscultation: Bowel Sounds: Normal Palpation: Normal Tenderness: Normal Skin: Normal Musculoskeletal: Normal Psychiatric: Normal Mood Description: Calm Affect: Normal Speech Pattern: Clear, Appropriate - Laboratory and Diagnostics Result Diagrams: 12/04/21 05:17 12/04/21 05:17 Labs: 11/23/21 17:40 Blood Blood Culture - Final 11/23/21 17:35 Blood Blood Culture - Final Laboratory WBC 16.7 X10^3/uL (3.6-10.0) H 12/04/21 05:17 RBC 4.76 X10^6/uL (4.7-6.0) 12/04/21 05:17 Hgb 13.4 g/dL (13.5-18.0) L 12/04/21 05:17 Hct 40.0 % (42.0-54.0) L 12/04/21 05:17 MCV 84.2 fL (80.0-100.0) 12/04/21 05:17 MCH 28.1 pg (27.0-34.0) 12/04/21 05:17 MCHC 33.4 g/dL (33.0-35.0) 12/04/21 05:17 RDW 14.4 % (11.6-16.5) 12/04/21 05:17 Plt Count 161 X10^3/uL (150.0-450.0) 12/04/21 05:17 Plt Count Comment Adequate (ADEQUATE) 12/04/21 05:17 MPV 8.8 fL (7.4-11.0) 12/04/21 05:17 Neut % (Auto) 90.9 % (42.0-75.0) H 12/04/21 05:17 Lymph % (Auto) 5.4 % (21.0-51.0) L 12/04/21 05:17 [place] % (Auto) 3.6 % (0.0-13.0) 12/04/21 05:17 Eos % (Auto) 0.0 % (0.9-2.9) L 12/04/21 05:17 Baso % (Auto) 0.1 % (0.2-1.0) L 12/04/21 05:17 Neut # (Auto) 15.2 x10^3/uL (2.2-4.8) H 12/04/21 05:17 Lymph # (Auto) 0.9 X10^3/uL (1.3-2.9) L 12/04/21 05:17 [place] # (Auto) 0.6 x10^3/uL (0.3-0.8) 12/04/21 05:17 Eos # (Auto) 0.0 x10^3/uL (0.0-0.2) 12/04/21 05:17 Baso # (Auto) 0.0 X10^3/uL (0.0-0.1) 12/04/21 05:17 Absolute Nucleated RBC 0.1 /100WBC 12/04/21 05:17 Total Counted 100 12/04/21 05:17 Neutrophils % (Manual) 88 % (39-76) H 12/04/21 05:17 Band Neutrophils % 2 % (0-10) 12/04/21 05:17 Lymphocytes % (Manual) 7 % (13-43) L 12/04/21 05:17 Monocytes % (Manual) 3 % (4-9) L 12/04/21 05:17 Plt Morphology Comment Normal (NORMAL) 12/04/21 05:17 RBC Morphology Normal (NORMAL) 12/04/21 05:17 D-Dimer 0.43 ug/ml (0.0-0.57) 11/23/21 17:35 Sample Site Rr 12/04/21 08:23 ABG pH 7.490 (7.35-7.45) H 12/04/21 08:23 ABG pCO2 41.0 mmHg (35.0-45.0) 12/04/21 08:23 ABG pO2 80.0 mmHg (80.0-100.0) 12/04/21 08:23 ABG HCO3 31.2 mmol/L (22-26) H* 12/04/21 08:23 ABG O2 Saturation 97.0 % (90-100) 12/04/21 08:23 ABG Base Excess 7.2 mmol/L (-2.0-2.0) H 12/04/21 08:23 Basilio Test Pos 12/04/21 08:23 A-a Gradient 261.0 mmHg 12/04/21 08:23 FiO2 55.0 12/04/21 08:23 Blood Gas Comments [facility] 12/04/21 08:23 Sodium 139 mmol/L (136-145) 12/04/21 05:17 Corrected Sodium 142 mmol/L (136-145) 12/04/21 05:17 Potassium 4.2 mmol/L (3.5-5.1) 12/04/21 05:17 Chloride 102 mmol/L (98-107) 12/04/21 05:17 Carbon Dioxide 26.0 mmol/L (21-32) 12/04/21 05:17 BUN 30 mg/dL (7-18) H 12/04/21 05:17 Creatinine 1.05 mg/dL (0.70-1.30) 12/04/21 05:17 Est GFR (MDRD) Af Amer > 60 (>60) 12/04/21 05:17 Est GFR (MDRD) Non-Af > 60 (>60) 12/04/21 05:17 Glucose 220 mg/dL (65-99) H 12/04/21 05:17 POC Glucose (mg/dL) 114 mg/dL (65-99) H 12/01/21 16:41 Calcium 9.4 mg/dL (8.5-10.1) 12/04/21 05:17 Corrected Calcium 10.0 mg/dL (8.5-10.1) 12/04/21 05:17 Magnesium 2.2 mg/dL (1.7-2.9) 11/25/21 04:07 Ferritin 333 ng/mL (26-388) 11/23/21 17:35 Total Bilirubin 0.60 mg/dL (0.2-1.0) 12/04/21 05:17 AST 15 Units/L (15-37) 12/04/21 05:17 ALT 32 Units/L (12-78) 12/04/21 05:17 Alkaline Phosphatase 76 Units/L (46-116) 12/04/21 05:17 C-Reactive Protein < 0.50 mg/L (0-3.0) 12/04/21 05:17 B-Natriuretic Peptide 67.0 pg/mL (0-79) 12/03/21 04:57 Total Protein 5.7 g/dL (6.4-8.2) L 12/04/21 05:17 Albumin 3.2 g/dL (3.4-5.0) L 12/04/21 05:17 Globulin 2.5 g/dL (2.5-4.5) 12/04/21 05:17 Albumin/Globulin Ratio 1.3 Ratio (1.1-2.1) 12/04/21 05:17 - Plan (1) Pneumonia due to COVID-19 virus Status: Acute Plan: supplemental oxygen, iv antibiotics, iv steroids, remdesivir, albumin, neb tx, immune supplements (2) Hypoxia Status: Acute (3) Diabetes mellitus Status: Chronic Qualifiers: Diabetes mellitus type: type 2 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
[2021-12-04] MEDS: TUSSIONEX PENNKINETIC SUSP PO PRN (21:45)
[2021-12-04] MEDS: RESTORIL CAP 15 MG PO PRN (21:45)
[2021-12-04] MEDS: SNACK - Diabetic Appropriate PO SCH (21:46)
[2021-12-05] MEDS: VITAMIN C PO SCH ×3 (03:43→15:31)
[2021-12-05 05:30] LABS: ABG BASE EXCESS 1.6 mmol/L (-2.0-2.0); ABG HCO3 24.4 mmol/L (22-26)
[2021-12-05 05:32] LABS: ABG ALLEN TEST POS
[2021-12-05 05:33] LABS: BASOPHILS % (AUTO) 0 % (0.2-1.0); HEMOGLOBIN 13.1 g/dL (13.5-18.0); LYMPHOCYTES # (AUTO) 0.7 X10^3/uL (1.3-2.9); LYMPHOCYTES % (AUTO) 4.4 % (21.0-51.0); MEAN CORPUSCULAR HEMOGLOBIN 27.6 pg (27.0-34.0); MEAN CORPUSCULAR HGB CONC 32.9 g/dL (33.0-35.0); MEAN PLATELET VOLUME 8.9 fL (7.4-11.0); MONOCYTES # (AUTO) 0.4 x10^3/uL (0.3-0.8); MONOCYTES % (AUTO) 2.4 % (0.0-13.0); NEUTROPHILS # (AUTO) 14.9 x10^3/uL (2.2-4.8); NEUTROPHILS % (AUTO) 93.2 % (42.0-75.0); RED BLOOD COUNT 4.76 X10^6/uL (4.7-6.0); RED CELL DISTRIBUTION WIDTH 14.6 % (11.6-16.5)
[2021-12-05 05:42] LABS: BLOOD UREA NITROGEN 30 mg/dL (7-18); CARBON DIOXIDE 26.7 mmol/L (21-32); CHLORIDE 102 mmol/L (98-107); COR NA(FOR HYPERGLY) 143 mmol/L (136-145); CREATININE 1.12 mg/dL (0.70-1.30); SODIUM 140 mmol/L (136-145); eGFR NON BLACK RACES > 60 (>60)
[2021-12-05] MEDS: XOPENEX 1.25 MG/3 ML NEBULE NEB SCH (05:56)
[2021-12-05] MEDS: MUCOMYST 20% 200 MG/ML NEB SCH (05:57)
[2021-12-05] MEDS: TESSALON PERLES PO SCH ×2 (05:59→14:00)
[2021-12-05] MEDS: SOLU-Medrol 125 MG VIAL IVP SCH ×2 (05:59→14:00)
[2021-12-05] MEDS: MESTINON 60MG TAB PO SCH ×2 (05:59→15:30)
[2021-12-05] MEDS: NEURONTIN CAP 300 MG PO SCH ×2 (05:59→14:00)
[2021-12-05 06:13] LABS: ALANINE AMINOTRANSFERASE 33 Units/L (12-78); ALBUMIN 3.7 g/dL (3.4-5.0); ALKALINE PHOSPHATASE 60 Units/L (46-116); ASPARTATE AMINO TRANSFERASE 17 Units/L (15-37); TOTAL PROTEIN 5.9 g/dL (6.4-8.2)
[2021-12-05] MEDS: NovoLIN R (or HumuLIN R) SUBCUT PRN (06:13)
[2021-12-05 06:25] LABS: PLATELET MORPHOLOGY COMMENT NORMAL (NORMAL)
[2021-12-05] MEDS: PULMICORT NEB TX 0.5 MG NEB SCH (08:45)
[2021-12-05] MEDS ORDERED: GLUCOPHAGE ONE (08:54)
[2021-12-05] MEDS: ELIQUIS PO SCH (09:13)
[2021-12-05] MEDS: AMARYL TAB 4 MG PO SCH (09:13)
[2021-12-05] MEDS: ALBUMIN HUMAN 25%- 100 ML 100 ML IV SCH (09:13)
[2021-12-05] MEDS: LEVAQUIN PREMIX IV 500 MG 500 MG/100 ML BAG IV SCH (09:14)
[2021-12-05] MEDS: PROTONIX INJ 40 MG VIAL IVP SCH (09:14)
[2021-12-05] MEDS: FOLIC ACID TAB 1 MG PO SCH (09:14)
[2021-12-05] MEDS: GLUCOPHAGE PO SCH (09:14)
[2021-12-05] MEDS: LUVOX PO SCH (09:14)
[2021-12-05] MEDS: VSL#3 PO SCH (09:15)
[2021-12-05] MEDS: ROBITUSSIN DM PO SCH ×2 (09:15→14:00)
--- NOTE | 2021-12-05 09:15 | RAD ---
HISTORYCOVID+STUDYCHEST, 1 [id number]/2022FINDINGSThe cardiomediastinal silhouette is stable. Similar bilateral airspace opacities. The bony thorax appears intact.IMPRESSIONSimilar bilateral pneumonia.Electronically signed by: SANDRA SHAFFER (Dec 05, 2021 07:17:52)
[2021-12-05 16:15] VITALS: BP 164/77
== END 2021-12-05 17:00 | disposition home or self-care (01) | DRG 177 ==
LOC: ICU 15:10
PROVIDERS: ADMIT Internal Medicine; ATTEND Internal Medicine

== ENCOUNTER 2022-05-23 10:26 | Observation (INO) ==
[2022-05-23 11:03] VITALS: BMI 34.2
--- NOTE | 2022-05-23 11:16 | DR.AMS ---
HPI Time Seen Time Seen by Provider: 05/23/22 11:04 PCP Primary Care Physician: Savita Brunson HPI Comment HPI Comment: A 72 y/o male presenting with feeling weak and feeling of passing out especially when he stands up. His spouse states that he has been confused intermittently since last night. He has had no fever, cough, SOB and he denies dysuria. Complaint Chief Complaint:: Pt c/o weakness, feeling faint, intermittent confusion since yesterday. COVID-19 Coronavirus risk:travel/contact w/high risk person: No Has patient experienced Coronavirus symptoms: No Source History Provided: Patient and Significant Other Mode of Arrival Mode of Arrival: Wheelchair Timing Onset of Chief Complaint: 05/22/22 PMH PMH Past Medical History: Yes Past Medical History: Arthritis, CVA, Diabetes, Hypertension, Kidney Stones and Sleep Apnea Past Surgical History: Yes Surgical History: TURP Family History History of Family Medical Conditions: Yes Family Medical History: PA and Hypertension Social History Do you use any recreational Drugs:: No Lives With: Spouse Lives Where: Home Travel Risk Coronavirus risk:travel/contact w/high risk person: No Has patient experienced Coronavirus symptoms: No Infectious screening In the last 2 months have you had wt loss of >10#?: NO Have you had fever, night sweats or hemotysis?: No Have you traveled outside the country in the last 6 months?: No Isolation: Standard ROS Review of Systems Constitutional: Weakness Eyes: No Symptoms Reported ENTM: No Symptoms Reported Respiratoy: No Symptoms Reported Cardiovascular: No Symptoms Reported Gastrointestinal/Abdominal: No Symptoms Reported Genitourinary: No Symptoms Reported Neurological: Other (feeling faint) Musculoskeletal: No Symptoms Reported Integumentary: No Symptoms Reported Hematologic/Lymphatic: No Symptoms Reported Endocrine: No Symptoms Reported Psychiatric: No Symptoms Reported All Other Systems: Reviewed and Negative PE Vitals Vital Signs: Temp Pulse Resp BP BP Pulse Ox O2 Del Method 05/23/22 13:15 62 14 05/23/22 13:00 60 17 99 05/23/22 12:45 64 24 96 05/23/22 12:30 61 15 05/23/22 12:15 60 17 05/23/22 12:00 59 L 14 94 L 05/23/22 11:45 60 15 95 05/23/22 11:30 61 17 95 05/23/22 11:00 59 L 14 05/23/22 10:47 57 L 98 05/23/22 10:37 130/69 05/23/22 10:37 61 17 97 05/23/22 10:36 99 05/23/22 10:37 97.9 F 62 18 130/69 99 Room Air 02/07/22 12:09 118/66 12/04/21 20:35 FiO2 05/23/22 13:15 05/23/22 13:00 05/23/22 12:45 05/23/22 12:30 05/23/22 12:15 05/23/22 12:00 05/23/22 11:45 05/23/22 11:30 05/23/22 11:00 05/23/22 10:47 05/23/22 10:37 05/23/22 10:37 05/23/22 10:36 05/23/22 10:37 02/07/22 12:09 12/04/21 20:35 28 General Limitations: No Limitations General Appearance: Alert and In No Apparent Distress Head Head Exam: Normal Inspection, Atraumatic and Normocephalic Eyes Eye exam: Normal Appearance, PERRL and EOMI ENT ENT Exam: Normal Exam, Normal Oropharynx, Normal External Ear Exam and Mucous Membranes Moist Neck Neck Exam: Normal Inspection and Full ROM Chest Chest Inspection: Normal Inspection and Symmetric Chest Wall Rise Respiratory Respiratory Exam: Normal Lung Sounds Bilat Cardiovascular Cardiovascular Exam: Regular Rate, Normal Rhythm, Normal Heart Sounds, +S1 and +S2 Abdominal Exam Abdominal Exam: Normal Inspection, Normal Bowel Sounds and Soft Extremities Extremities Exam: Normal Inspection and Full ROM Back Back Exam: Normal Inspection and Full ROM Neurological Neurological Exam: Alert and Oriented X3 Psychological Psychiatric Exam: Normal Affect and Normal Mood Skin Skin Exam: Dry, Intact and Normal Color COURSE Treatment Treatment: test results were discussed with the pt. and his . I spoke with is PCP, Dr. Spicer and we agreed on placing him in OBS. status. I informed the pt. of this recommendation and he is in agreement also. Reevaluation 1st: Unchanged (He was not confused at time of evaluation and since then. ) Education/Counseling Education/Counseling: Patient, Family, Education and Counseling Educated On: Treatment, Diagnosis, Prognosis and Needs for Follow Up ROR Labs Reviewed Laboratory Results Reviewed?: Yes Result Diagrams: 05/23/22 11:32 05/23/22 11:32 Laboratory: WBC 8.7 X10^3/uL (3.6-10.0) 05/23/22 11:32 RBC 4.80 X10^6/uL (4.7-6.0) 05/23/22 11:32 Hgb 13.5 g/dL (13.5-18.0) 05/23/22 11:32 Hct 40.1 % (42.0-54.0) L 05/23/22 11:32 MCV 83.5 fL (80.0-100.0) 05/23/22 11:32 MCH 28.0 pg (27.0-34.0) 05/23/22 11: MCHC 33.6 g/dL (33.0-35.0) 05/23/22 11: RDW 14.5 % (11.6-16.5) 05/23/22 11:32 Plt Count 167 X10^3/uL (150.0-450.0) 05/23/22 11:32 MPV 8.3 fL (7.4-11.0) 05/23/22 11:32 Neut % (Auto) 62.1 % (42.0-75.0) 05/23/22 11:32 Lymph % (Auto) 28.2 % (21.0-51.0) 05/23/22 11:32 [place] % (Auto) 7.3 % (0.0-13.0) 05/23/22 11:32 Eos % (Auto) 2.1 % (0.9-2.9) 05/23/22 11:32 Baso % (Auto) 0.3 % (0.2-1.0) 05/23/22 11:32 Neut # (Auto) 5.4 x10^3/uL (2.2-4.8) H 05/23/22 11:32 Lymph # (Auto) 2.4 X10^3/uL (1.3-2.9) 05/23/22 11:32 [place] # (Auto) 0.6 x10^3/uL (0.3-0.8) 05/23/22 11:32 Eos # (Auto) 0.2 x10^3/uL (0.0-0.2) 05/23/22 11:32 Baso # (Auto) 0.0 X10^3/uL (0.0-0.1) 05/23/22 11:32 Absolute Nucleated RBC 0.0 /100WBC 05/23/22 11:32 Sodium 133 mmol/L (136-145) L 05/23/22 11:32 Corrected Sodium 138 mmol/L (136-145) 05/23/22 11:32 Potassium 3.5 mmol/L (3.5-5.1) 05/23/22 11:32 Chloride 97 mmol/L (98-107) L 05/23/22 11:32 Carbon Dioxide 28.8 mmol/L (21-32) 05/23/22 11:32 BUN 22 mg/dL (7-18) H 05/23/22 11:32 Creatinine 1.51 mg/dL (0.70-1.30) H 05/23/22 11:32 Est GFR (MDRD) Af Amer 58 (>60) L 05/23/22 11:32 Est GFR (MDRD) Non-Af 48 (>60) L 05/23/22 11:32 Glucose 308 mg/dL (65-99) H 05/23/22 11:32 Lactic Acid 3.9 mmol/L (0.4-2.0) H 05/23/22 11:32 Calcium 9.2 mg/dL (8.5-10.1) 05/23/22 11:32 Corrected Calcium 9.8 mg/dL (8.5-10.1) 05/23/22 11:32 Total Bilirubin 0.40 mg/dL (0.2-1.0) 05/23/22 11:32 AST 23 Units/L (15-37) 05/23/22 11:32 ALT 46 Units/L (12-78) 05/23/22 11:32 Alkaline Phosphatase 84 Units/L (46-116) 05/23/22 11:32 Creatine Kinase 69 Units/L (39-308) 05/23/22 11:32 CK-MB (CK-2) 1.9 ng/mL (0-4.0) 05/23/22 11:32 CK/CKMB % Calc 2.8 % (<4) 05/23/22 11:32 Troponin I High Sens 9.6 ng/L (4.0-60.0) 05/23/22 11:32 Total Protein 6.2 g/dL (6.4-8.2) L 05/23/22 11:32 Albumin 3.3 g/dL (3.4-5.0) L 05/23/22 11:32 Globulin 2.9 g/dL (2.5-4.5) 05/23/22 11:32 Albumin/Globulin Ratio 1.1 Ratio (1.1-2.1) 05/23/22 11:32 Specimen Type Random urine 05/23/22 13:20 Urine Color Yellow (YELLOW) 05/23/22 13:20 Urine Appearance Clear (CLEAR) 05/23/22 13:20 Urine pH 6.0 (5.0 - 8.0) 05/23/22 13:20 Ur Specific [place] 1.015 (1.000-1.030) 05/23/22 13:20 Urine Protein Negative (NEGATIVE) 05/23/22 13:20 Urine Glucose (UA) 4+ (NEGATIVE) 05/23/22 13:20 Urine Ketones 1+ (NEGATIVE) 05/23/22 13:20 Urine Blood Negative (NEGATIVE) 05/23/22 13:20 Urine Nitrite Negative (NEGATIVE) 05/23/22 13:20 Urine Bilirubin Negative (NEGATIVE) 05/23/22 13:20 Urine Urobilinogen Normal (NORMAL) 05/23/22 13:20 Ur Leukocyte Esterase Negative (NEGATIVE) 05/23/22 13:20 XRAY XRAY Interpreted by: Self X-ray Results: CXR: cardiomegaly, elevated Rt. laina-diaphragm, likely infiltrate/atelectasis. Radiology report is pending. Opioid Opioid Risk Tool Age (Suraj box if 16-45): No History of Preadolescent Sexual Abuse: No Total: 0 Total Score Risk Category: Low Risk Copyright: Gunner ZUÑIGA predicting aberrant behaviors Discharge Plan Diagnosis Discharge Problem: Acute confusion, Acidosis, lactic Discharge Plan Patient Disposition: 09 ADMITTED INPATIENT Condition: Stable Prescriptions: No Action amlodipine 5 mg tablet 5 mg PO DAILY Label Comments: TAKE 1 TABLET BY MOUTH EVERY DAY pantoprazole [pantoprazole] 40 MG tablet,delayed release (DR/EC) 40 mg PO BID Qty: 60 3RF Rx Instructions: TAKE ONE TABLET TWICE A DAY Eliquis 5 mg Tablet 5 mg PO BID Qty: 60 0RF cyanocobalamin (vitamin B-12) [Vitamin B-12] 2,500 mcg Tablet, Sublingual 500 mcg sublingual DAILY Rx Instructions: TAKE 5000 MCG SUBLINGUAL DAILY citalopram 40 mg tablet 40 mg PO DAILY Rx Instructions: TAKE 1 TABLET BY MOUTH DAILY folic acid 400 mcg Tablet 0.4 mg PO DAILY Rx Instructions: TAKE 400 MCG PO DAILY aspirin 325 mg Tablet,Delayed Release (Dr/Ec) 325 mg PO DAILY Rx Instructions: TAKE 325 MG PO DAILY pyridostigmine bromide 60 mg tablet 30 mg PO TID metformin [Glucophage] 500 mg Tablet 500 mg PO BID gabapentin 600 mg tablet 600 mg PO TID Label Comments: TAKE ONE TABLET BY MOUTH THREE TIMES DAILY tramadol 50 mg tablet 100 mg PO BID Label Comments: TAKE TWO TABLETS BY MOUTH THREE TIMES DAILY NEEDED glimepiride 4 mg tablet 4 mg PO BID Label Comments: TAKE ONE TABLET BY MOUTH TWICE DAILY hydrochlorothiazide 25 mg tablet 25 mg PO DAILY Label Comments: TAKE 1 TABLET BY MOUTH EVERY DAY rosuvastatin 10 mg tablet 10 mg PO DAILY Label Comments: TAKE ONE TABLET BY MOUTH AT BEDTIME levocetirizine 5 mg tablet 5 mg PO DAILY Label Comments: TAKE ONE TABLET BY MOUTH DAILY Health Concerns: Post Hospitalization: new medications and changes needed to prevent readmission or further decline. Pt educated and given instructions on all concerns. Plan of Treatment: Continue with present treatment and follow up plan. Pt is to keep follow up appointment as instructed and take medications as ordered. Orders to Discharge Patient Discharge Orders: Transfer (Routine); Ordered 05/23/22 Ordered By: JUSTEN DOMINGUEZ Follow ups/Referrals Follow ups/Referrals: KATIA BRUNSON [Primary Care Provider] - 3 days
--- NOTE | 2022-05-23 11:19 | CT ---
HISTORYConfusionSTUDYCT head without contrastTechnique: Axial noncontrast images with coronal and sagittal reformats. Dose reduction procedures were used with mA/kv adjusted for body size.[id number] ventricles are normal in size shape and position. There is decreased attenuation in the periventricular white matter suggestive of small vessel vascular disease. There is generalized cortical atrophy present likely age related. There are no focal areas of abnormal attenuation to suggest recent or remote CVA, hemorrhage, mass lesion, or extra-axial fluid collection. The visualized sinuses are clear. The calvarium is intact. If acute CVA is a strong clinical consideration MRI with diffusion imaging would be of further diagnostic value.IMPRESSIONNo definite acute intracranial abnormality identifiedGeneralized cortical atrophy likely age relatedDiffuse small vessel vascular diseaseElectronically signed by: SANDRA SHAFFER (May 23, 2022 11:17:36)
[2022-05-23 11:50] LABS: BASOPHILS % (AUTO) 0.3 % (0.2-1.0); EOSINOPHILS # (AUTO) 0.2 x10^3/uL (0.0-0.2); EOSINOPHILS % (AUTO) 2.1 % (0.9-2.9); HEMATOCRIT 40.1 % (42.0-54.0); HEMOGLOBIN 13.5 g/dL (13.5-18.0); LYMPHOCYTES # (AUTO) 2.4 X10^3/uL (1.3-2.9); LYMPHOCYTES % (AUTO) 28.2 % (21.0-51.0); MEAN CORPUSCULAR HGB CONC 33.6 g/dL (33.0-35.0); MEAN CORPUSCULAR VOLUME 83.5 fL (80.0-100.0); MEAN PLATELET VOLUME 8.3 fL (7.4-11.0); MONOCYTES # (AUTO) 0.6 x10^3/uL (0.3-0.8); MONOCYTES % (AUTO) 7.3 % (0.0-13.0); NEUTROPHILS # (AUTO) 5.4 x10^3/uL (2.2-4.8); NEUTROPHILS % (AUTO) 62.1 % (42.0-75.0); RED CELL DISTRIBUTION WIDTH 14.5 % (11.6-16.5); WHITE BLOOD COUNT 8.7 X10^3/uL (3.6-10.0)
[2022-05-23 12:06] LABS: LACTIC ACID 3.9 mmol/L (0.4-2.0)
[2022-05-23 12:14] LABS: ALBUMIN 3.3 g/dL (3.4-5.0); CALCIUM 9.2 mg/dL (8.5-10.1); CARBON DIOXIDE 28.8 mmol/L (21-32); CKMB % 2.8 % (<4); COR CA(FOR HYPOALB) 9.8 mg/dL (8.5-10.1); CREATINE KINASE MB 1.9 ng/mL (0-4.0); CREATININE 1.51 mg/dL (0.70-1.30); TOTAL PROTEIN 6.2 g/dL (6.4-8.2)
[2022-05-23] MEDS ORDERED: INVanz INJ 1 GRAM VIAL IV ONE (13:00)
[2022-05-23] MEDS ORDERED: INVanz INJ 1 GRAM VIAL ONE (13:19)
--- NOTE | 2022-05-23 13:45 | RAD ---
HISTORYconfusion HX: TIA, HTN, PROSTATE CANCER, DMSTUDYCHEST, 1 VIEWCOMPARISONPortable chest December 04, 2021.FINDINGSThe trachea is midline. The cardiac silhouette is borderline enlarged for portable film.. The lungs are clear without focal infiltrate or effusion. Mild parenchymal scarring is seen laterally in the right lung base but the infiltrates that were seen bilaterally peripherally right greater than left in November of 2001 have resolved. The bony thorax is unremarkable.IMPRESSIONBorderline cardiomegaly but no acute cardiopulmonary abnormalities. The infiltrates that were present in November of 2021 have resolved with minimal parenchymal scarring in the right lung baseElectronically signed by: ERIC FLORES (May 23, 2022 13:43:49)
[2022-05-23 13:55] LABS: BILIRUBIN,URINE NEGATIVE (NEGATIVE); BLOOD/HEMOGLOBIN,URINE NEGATIVE (NEGATIVE); GLUCOSE, URINE 4+ (NEGATIVE); KETONES,URINE 1+ (NEGATIVE); LEUKOCYTE ESTERASE ,URINE NEGATIVE (NEGATIVE); NITRITES,URINE NEGATIVE (NEGATIVE); PROTEIN,URINE NEGATIVE (NEGATIVE); UROBILINOGEN,URINE NORMAL (NORMAL)
[2022-05-23 13:57] LABS: APPEARANCE,URINE CLEAR (CLEAR); COLOR,URINE YELLOW (YELLOW)
[2022-05-23] MEDS: INVanz INJ 1 GRAM VIAL 1 G in NS 100 ML IV 100 ML IV SCH (16:33)
[2022-05-23] MEDS: NS 1,000 ML IV 1,000 ML IV SCH (16:40)
[2022-05-23] MEDS: NovoLIN R (or HumuLIN R) SUBCUT PRN ×2 (17:03→21:23)
[2022-05-24] MEDS: NS 1,000 ML IV 1,000 ML IV SCH (04:15)
[2022-05-24 06:31] LABS: BASOPHILS % (AUTO) 0.6 % (0.2-1.0); EOSINOPHILS # (AUTO) 0.2 x10^3/uL (0.0-0.2); EOSINOPHILS % (AUTO) 2.7 % (0.9-2.9); HEMATOCRIT 40.9 % (42.0-54.0); HEMOGLOBIN 13.9 g/dL (13.5-18.0); LYMPHOCYTES # (AUTO) 2.9 X10^3/uL (1.3-2.9); LYMPHOCYTES % (AUTO) 38.8 % (21.0-51.0); MEAN CORPUSCULAR HGB CONC 33.9 g/dL (33.0-35.0); MEAN CORPUSCULAR VOLUME 82.5 fL (80.0-100.0); MEAN PLATELET VOLUME 8.7 fL (7.4-11.0); MONOCYTES # (AUTO) 0.6 x10^3/uL (0.3-0.8); MONOCYTES % (AUTO) 7.4 % (0.0-13.0); NEUTROPHILS # (AUTO) 3.8 x10^3/uL (2.2-4.8); NEUTROPHILS % (AUTO) 50.5 % (42.0-75.0); RED BLOOD COUNT 4.95 X10^6/uL (4.7-6.0); RED CELL DISTRIBUTION WIDTH 14.6 % (11.6-16.5); WHITE BLOOD COUNT 7.5 X10^3/uL (3.6-10.0)
[2022-05-24 06:50] LABS: ALANINE AMINOTRANSFERASE 40 Units/L (12-78); ALBUMIN 3.2 g/dL (3.4-5.0); ALKALINE PHOSPHATASE 69 Units/L (46-116); ASPARTATE AMINO TRANSFERASE 21 Units/L (15-37); BLOOD UREA NITROGEN 18 mg/dL (7-18); CALCIUM 9.3 mg/dL (8.5-10.1); CARBON DIOXIDE 29.3 mmol/L (21-32); CHLORIDE 104 mmol/L (98-107); COR CA(FOR HYPOALB) 9.9 mg/dL (8.5-10.1); COR NA(FOR HYPERGLY) 141 mmol/L (136-145); CREATININE 1.23 mg/dL (0.70-1.30); SODIUM 140 mmol/L (136-145); TOTAL PROTEIN 6.2 g/dL (6.4-8.2); eGFR NON BLACK RACES > 60 (>60)
[2022-05-24] MEDS ORDERED: KLOR-CON PO PRN (07:02)
[2022-05-24] MEDS ORDERED: POTASSIUM CHL 40 MEQ/NS 0.45% 500 ML IV PRN (07:02)
[2022-05-24] MEDS ORDERED: MICRO K EXTEN CAP 10 MEQ PO PRN (07:02)
[2022-05-24] MEDS ORDERED: K-DUR TAB 20 MEQ PO PRN (07:02)
[2022-05-24] MEDS ORDERED: POTASSIUM CHLORIDE LIQ 20 MEQ UDC PO PRN (07:02)
[2022-05-24] MEDS ORDERED: MAGNESIUM SULFATE 1 GRAM/100 mL PREMIX 1 G/100 ML BAG IV PRN (07:02)
[2022-05-24] MEDS ORDERED: POTASSIUM CHL 60 MEQ/NS 0.45% 500 ML IV PRN (07:02)
[2022-05-24] MEDS ORDERED: K-RIDER 10 MEQ/NS 100 ML 10 MEQ/100 ML BAG IV PRN (07:02)
[2022-05-24] MEDS: INVanz INJ 1 GRAM VIAL 1 G in NS 100 ML IV 100 ML IV SCH (08:43)
[2022-05-24] MEDS ORDERED: ULTRAM PO PRN (09:14)
[2022-05-24] MEDS ORDERED: PATIENT'S HOME MEDICATION (Levocetirizine 5 mg tablet) PO SCH (09:15)
[2022-05-24] MEDS ORDERED: PREDNISONE TAB 5 MG PO SCH (10:00)
[2022-05-24] MEDS ORDERED: AMARYL TAB 4 MG PO SCH (10:00)
[2022-05-24] MEDS ORDERED: PROTONIX TAB 40 MG PO SCH (10:00)
[2022-05-24] MEDS ORDERED: CELEXA PO SCH (10:00)
[2022-05-24] MEDS ORDERED: PriLOSEC PO SCH (10:00)
[2022-05-24] MEDS ORDERED: NIZORAL CREAM TOP SCH (10:00)
[2022-05-24] MEDS ORDERED: GLUCOPHAGE PO SCH (10:00)
[2022-05-24] MEDS ORDERED: NORVASC TAB 5 MG PO SCH (10:00)
[2022-05-24] MEDS ORDERED: MICRO K EXTEN CAP 10 MEQ PO SCH (10:00)
[2022-05-24] MEDS ORDERED: GLUCOPHAGE ONE (10:53)
[2022-05-24] MEDS ORDERED: MESTINON 60MG TAB PO SCH (14:00)
--- NOTE | 2022-05-24 15:20 | MRI ---
HISTORYweakness, syncope, confusionSTUDYMRI brain without IV contrastCOMPARISONCT 05/23/2022TECHNIQUEMultiplanar multi-sequence MRI of the brain was obtained without administration of IV contrast.FINDINGSThe cerebellar tonsils are normally positioned. Pituitary gland is normal in size. [Moderate diffuse volume loss in the brain with compensatory large of the ventricular system.]No areas of restricted diffusion. Moderate increased T2 signal is seen throughout the supratentorial white matter, somewhat confluent in the periventricular regions. These are probably chronic small vessel ischemic changes. There is probable mild involvement of the thalami and collin, also. [No evidence of intracranial hemorrhage.]Trace mucosal thickening is seen in the paranasal sinuses.IMPRESSIONModerate chronic small vessel ischemic changes and associated volume loss are seen in the brain. No evidence of recent CVA.Electronically signed by: Jordy Rose (May 24, 2022 15:19:12)
[2022-05-24 16:26] VITALS: BP 133/66
[2022-05-24] MEDS ORDERED: SNACK - Diabetic Appropriate PO SCH (20:00)
[2022-05-24] MEDS ORDERED: KLONOPIN TAB 0.5 MG PO SCH (21:00)
[2022-05-24] MEDS ORDERED: CRESTOR TAB 10 MG PO SCH (21:00)
[2022-05-24] MEDS ORDERED: ZANAFLEX PO SCH (21:00)
[2022-05-25] MEDS ORDERED: FOLIC ACID TAB 1 MG PO SCH (09:00)
[2022-05-25] MEDS ORDERED: LOVAZA PO SCH (09:00)
--- NOTE | 2022-06-03 16:37 | DR.CARTERS ---
Short Stay Summary - Admission Date Date of Admission: 05/23/22 - Discharge Date Discharge Date: 05/24/22 - Admission Diagnoses (1) Dehydration Status: Acute (2) Generalized weakness Status: Acute (3) AMS (altered mental status) Status: Acute - Hospital Course Hospital Course: IS A 72 YEAR OLD PATIENT OF OURS WHO PRESENTED TO THE ER WITH COMPALINTS OF WEAKNESS, CONFUSION, AND DIZZINESS. HIS SPOUSE REPORTS THAT HE HAS HAD INTERMITTENT CONFUSION X 1 DAY. HE DENIES FEVER, COUGH, SOB, OR DYSURIA. HIS PMH INCLUDES: TIA, HTN, SLEEP APNEA, KIDNEY STONES, MYASTHENIA GRAVIS, ARTHRITIS, DM II, PROSTATE CANCER, ANXIETY/DEPRESSION, [place], CATARACT REMOVAL. ON ARRIVAL TO THE ER, VITALS WERE 97.9-62-18-99%-130/69. LABS WERE OBTAINED. ABNORMAL LAB VALUES INCLUDED THE FOLLOWING: WBC 8.7, RBC 4.80, HGB 13.5, HCT 40.1, PLT COUNT 167, SODIUM 133, POTASSIUM 3.5, CHLORIDE 97, CARBON DIOXIDE 28.8, BUN 22, CREATININE 1.51, GLUCOSE 308, LACTIC ACID 3.9, CALCIUM 9.2, AST 23, ALT 46, ALK PHOS 84, CREATINE KINASE 69, TOTAL PROTEIN 6.2, ALBUMIN 3.3. CARDIAC ENZYMES WERE WITHIN NORMAL LIMITS. URINALYSIS WAS OBTAINED AND WAS UNREMARKABLE. A BRAIN CT WAS OBTAINED AND REVEALED: No definite acute intracranial abnormality identified. Generalized cortical atrophy likely age related. Diffuse small vessel vascular disease. A CHEST XRAY WAS OBTAINED AND REVEALED: Borderline cardiomegaly but no acute cardiopulmonary abnormalities. The infiltrates that were present in November of 2021 have resolved with minimal parenchymal scarring in the right lung base. EKG REVEALED: SINUS RHYTHM WITH HR 83. HE WAS ADMITTED TO THE HOSPITAL FOR FURTHER EVALUATION AND TREATMENT OF DEHYDRATION, AMS, AND GENERALIZED WEAKNESS. HE WAS STARTED ON NORMAL SALINE AT 80 ML/HR, INVANZ 1G IV DAILY, OTBS ACHS, HUMULIN R SLIDING SCALE, AND HIS HOME MEDICATIONS WERE RESUMED. WE PLANNED TO FOLLOW-UP WITH BRAIN MRI AND AM LABS AND CONTINUE TO MONITOR. ON THE MORNING FOLLOWING ADMISSION, PATIENT IS ALERT AND ORIENTED, LYING IN BED ON MORNING ROUNDS. HIS SPOUSE IS AT BEDSIDE. HE DENIES DIZZINESS OR WEAKNESS THIS MORNING. SPOUSE AND STAFF REPORT THAT HE HAS NOT HAD ANY CONFUSION OR DISORIENTATION THROUGHOUT THE NIGHT. ON EXAMINATION, HEART IS REGULAR IN RATE AND RHYTHM. BILATERAL LUNGS ARE NOTED WITH DIMINISHED LUNG SOUNDS THROUGHOUT. ABDOMEN IS ROUND, SOFT, AND NON-TENDER WITH NORMAL BOWEL SOUNDS NOTED IN ALL QUADRANTS. HIS VITALS THIS MORNING ARE: 98.5-78-18-95%-132/78. LABS WERE OBTAINED. ABNORMAL LAB VALUES INCLUDE THE FOLLOWING: WBC 7.5, RBC 4.95, HGB 13.9, HCT 40.9, PLT COUNT 167, SODIUM 140, POTASSIUM 3.3, BUN 18, CREATININE 1.23, GLUCOSE 139, CALCIUM 9.3, AST 21, ALT 40, ALK PHOS 69, TOTAL PROTEIN 6.2, ALBUMIN 3.3. A BRAIN MRI WAS OBTAINED AND REVEALED: Moderate chronic small vessel ischemic changes and associated volume loss are seen in the brain. No evidence of recent CVA. HE REPORTED FEELING WELL AND REQUESTED DISCHARGE. WE PLANNED FOR DISCHARGE. INSTRUCTIONS FOR MEDICATIONS AND FOLLOW UP WERE DISCUSSED WITH PATIENT AND HIS SPOUSE. HE WAS INSTRUCTED TO CONTINUE HIS CURRENT HOME MEDICATIONS AND TO FOLLOW UP IN THE OFFICE WITHIN THE WEEK. HE WAS DISCHARGED HOME WITH HIS SPOUSE IN STABLE CONDITION. TIME SPENT ON CLINICAL ASSESSMENT, REVIEWING LABS AND IMAGING, DECISION MAKING, DISCHARGE INSTRUCTIONS, PREPARING DISCHARGE PAPERS, AND DOCUMENTATION GREATER THAN 75 MINUTES. - Discharge Medications Discharge Medications: Home Medication List clonazepam 0.5 mg tablet 0.5 mg PO QHS 05/23/22 [History] ketoconazole 2 % topical cream 1 applic topical BID 05/23/22 [History] omega-3 fatty acids-vitamin E 1,000 mg capsule 1 cap PO DAILY 05/23/22 [History] omeprazole 40 mg capsule,delayed release 40 mg PO QDAY 05/23/22 [History] potassium chloride 10 mEq tablet,extended release (Klor-Con) 10 meq PO BID 05/23/22 [History] prednisone 5 mg tablet 1 tab PO QDAY 05/23/22 [History] tizanidine 4 mg capsule (Zanaflex) 4 mg PO QHS 05/23/22 [History] Prescriptions: - Discharge Plan Disposition: 01 HOME, SELF-CARE Condition: Stable - Follow up/Referrals Follow up/Referrals: KATIA BRUNSON [Primary Care Provider] - 06/05/22 2:10 pm - Instructions Instructions: Fatigue, Weakness, [id number], Sciatica, [id number], Weakness Additional Instructions: DIET TOLERATED. ACTIVITY TOLERATED. Forms: Excuse From Work or School, Precautions for COVID19, [facility], Patient Portal, Social Distancing
== END 2022-05-24 16:50 | disposition home or self-care (01) ==
LOC: MED/SURG 10:26 → ER 10:26 → MED/SURG 16:28
PROVIDERS: ADMIT Internal Medicine; ATTEND Internal Medicine
DX: R53.1 Weakness; R42 Dizziness and giddiness; Z85.46 Personal history of malignant neoplasm of prostate; G70.00 Myasthenia gravis without (acute) exacerbation; E87.2 Acidosis; R26.89 Other abnormalities of gait and mobility; R41.0 Disorientation, unspecified; E86.0 Dehydration; E11.65 Type 2 diabetes mellitus with hyperglycemia; Z86.73 Personal history of transient ischemic attack (TIA), and cerebral infarction without residual deficits; R55 Syncope and collapse